=== PATIENT | male | born 1960 | race Caucasian/White ===

== ENCOUNTER 2019-02-18 16:16 | Inpatient (IN) | payer BC, SELFPAY ==
[2019-02-08 10:46] VITALS: BP 147/88; PULSE 56; RESP 18; TEMP 36.9; O2SAT 100; BMI 36.3
--- NOTE | 2019-02-17 14:49 | PM.IMHP ---
H&P: HPI History of Present Illness Chief complaint: diverticulitis with abscess Narrative: Rohit Kate Jr. is a 58 year old male with psoriatic arthritis who presented in November with diverticulitis with a 6 cm pelvic abscess. This was treated with percutaneous drainage and antibiotics. It subsequently resolved. In follow-up patient began having pneumaturia. He is taken to surgery now for complicated diverticulitis with colovesical fistula. His anti TNF alpha inhibitor has been stopped preoperatively. he has been on cephalexin 500 mg daily for urinary bacterial suppression. Review of Systems Review of Systems: All systems reviewed & are unremarkable except as noted in HPI and below Constitutional: Constitutional: Denies headache(s) ENT: Denies headache(s) Cardiovascular: Cardiovascular: Denies chest pain and Denies dyspnea Respiratory: Respiratory: Denies cough and Denies dyspnea Gastrointestinal: Gastrointestinal: Denies bloating, Denies constipation and Denies nausea Genitourinary: Genitourinary: Reports as per HPI ( Pneumaturia) Neurologic: Denies confusion and Denies headache(s) Psychiatric: Psychiatric: Denies confusion [facility] Surgical History Surgical History (Updated 02/18/19 @ 08:13 by Sindhu Celaya CRNA) H/O umbilical hernia repair History of carpal tunnel surgery of right wrist History of inguinal hernia repair History of total replacement of right shoulder joint Family History Family History Mother Family history of diabetes mellitus in first degree relative Family history of coronary artery disease Family history of heart disease in male family member before age 55 Sibling Family history of diabetes mellitus in first degree relative Other Cerebrovascular accident Diabetes mellitus Family history of cardiovascular disease Hypertension Social History Social History Smoking status: Former smoker Tobacco type: e-cigarettes Smoking end date: 02/24/11 Alcohol intake: current Meds Home Medications and Allergies Home Medications Medication Instructions Recorded Confirmed Type cholecalciferol (vitamin D3) 2,000 2,000 unit PO DAILY 01/04/19 02/18/19 History unit tablet folic acid 1 mg tablet 3 mg PO DAILY 01/04/19 02/18/19 History pantoprazole 40 mg tablet,delayed 40 mg PO QAM 01/04/19 02/18/19 History release piroxicam 20 mg capsule 20 mg PO DAILY 01/04/19 02/18/19 History ramipril 10 mg capsule 10 mg PO DAILY 01/04/19 02/18/19 History tramadol 50 mg tablet 50 mg PO Q6H PRN 01/04/19 02/18/19 History cephalexin 500 mg PO DAILY 02/08/19 02/18/19 History Allergies Allergy/AdvReac Type Severity Reaction Status Date / Time No Known Allergies Allergy Unknown Verified 02/18/19 08:37 Exam Const: General: cooperative, comfortable, no acute distress, alert and awake HENMT: Head: normocephalic, atraumatic, no contusions and no scalp lesions Eyes: Conjunctivae: conjunctivae normal Sclera: sclerae normal Pupils: PERRL EOM: EOM intact bilaterally Neck: Neck: normal visual inspection, no lymphadenopathy, trachea midline, supple, nontender and no JVD Thyroid: abnormal thyroid Resp: Effort & Inspection: normal respiratory effort Auscultation: clear to auscultation bilaterally Cardio: Rate: regular rate Rhythm: regular rhythm GI: Inspection: non-distended GI Palp: Yes soft and No tender Skin: Lesions: no lesions Rashes: no rashes Neuro: General: no focal motor deficits and CN's II-XI intact bilaterally Cranial nerves: Yes PERRL Motor exam (neuro): no movement abnormalities noted Extrem: General: no clubbing, cyanosis or edema and edema Psych: Affect: normal affect Thought process: normal thought process Insight: insight good Assessment and Plan Assessment and plan (1) Diverticulitis of large intestine with perforation and abscess withou
[2019-02-18] VITALS (11 sets, daily range): BP systolic 107–163; BP diastolic 58–82; PULSE 52–102; RESP 10–20; TEMP 36.2–37.5; O2SAT 94–100
--- NOTE | 2019-02-18 08:09 | WPDANESEPP ---
Anes - Eval Pre Procedure Procedure: Operation Date: 02/18/19 10:30 Proposed Procedures p Hand Assisted Laparoscopic Sigmoidectomy, Repair Colovesical Fistula - Murali Ortiz MD Date/Time: 02/18/19 08:09 Surgeon: Angel Pre Op Diagnosis: diverticulitis with abscess Patient Data Age: 58 Gender: M Height: 1.78 m Weight: 115.1 kg Last Vital Signs Temp 36.9 C 02/08/19 10:46 Pulse 56 L 02/08/19 10:46 Resp 18 02/08/19 10:46 BP 147/88 H 02/08/19 10:46 Pulse Ox 100 02/08/19 10:46 Allergies Allergy/AdvReac Type Severity Reaction Status Date / Time No Known Allergies Allergy Unknown Verified 02/08/19 10:11 Home Medications Medication Instructions Recorded Confirmed Type cholecalciferol (vitamin D3) 2,000 2,000 unit PO DAILY 01/04/19 02/08/19 History unit tablet folic acid 1 mg tablet 3 mg PO DAILY 01/04/19 02/08/19 History pantoprazole 40 mg tablet,delayed 40 mg PO QAM 01/04/19 02/08/19 History release piroxicam 20 mg capsule 20 mg PO DAILY 01/04/19 02/08/19 History ramipril 10 mg capsule 10 mg PO DAILY 01/04/19 02/08/19 History tramadol 50 mg tablet 50 mg PO Q6H PRN 01/04/19 02/08/19 History cephalexin 500 mg PO DAILY 02/08/19 02/08/19 History Patient hx anesthesia problems: none Family hx anesthesia problems: none PMFSH Surgical History Surgical History (Updated 02/18/19 @ 08:13 by Sindhu Celaya CRNA) H/O umbilical hernia repair History of carpal tunnel surgery of right wrist History of inguinal hernia repair History of total replacement of right shoulder joint Family History Family History Mother Family history of diabetes mellitus in first degree relative Family history of coronary artery disease Family history of heart disease in male family member before age 55 Sibling Family history of diabetes mellitus in first degree relative Other Cerebrovascular accident Diabetes mellitus Family history of cardiovascular disease Hypertension Social History Social History Smoking status: Former smoker Tobacco type: e-cigarettes Smoking end date: 02/24/11 Alcohol intake: current Exam Day of Procedure 02/18/19 08:09 Patient weight: obese
[2019-02-18] MEDS: LACTATED RINGERS 1,000 ML 30 ML IV CONT ×2 (08:30→15:11)
--- NOTE | 2019-02-18 09:17 | WPDANESEFPP ---
Anes - Eval Final PreProcedure Day of Procedure 02/18/19 09:17 Patient weight: obese Heart: regular rate and rhythm Lungs: decreased breath sounds Airway: Mallampati scale class II Neurological: alert and oriented Last oral intake: >/= 8 hours ASA classification: III Emergent: no Anesthetic plan: proceed Anesthesia type and monitoring: general ETT and standard monitoring Other findings: htn vapes diverticulitis GERD Informed Consent: The patient's anesthetic plan and its attendant risks and benefits were discussed with the patient/family/POA. Questions were solicited and answers provided to the satisfaction of the patient/family/POA.
[2019-02-18] MEDS: ALVIMOPAN 12 MG CAPSULE PO ×2 (10:01→21:05)
[2019-02-18] MEDS: IBUPROFEN IV 800 MG/200 ML 800 MG/200 ML BAG 400 MG IVPB ×2 (10:01→18:38)
--- NOTE | 2019-02-18 10:18 | WPDHPUPDATE1 ---
History and Physical Update Update Date/Time: 02/18/19 10:18 History and Physical has been reviewed, including an updated exam of the patient. There are NO changes in the patient's condition. Risks, benefits, and alternatives have been discussed and questions answered. Patient agrees to proceed with procedure.
[2019-02-18] MEDS: ceFAZolin 2 GM/D5W 50 ML 2 GM/50 ML BAG IVPB (10:42)
[2019-02-18] MEDS: metroNIDAZOLE 500 MG/ISO 100ML 500 MG/100 ML BAG 100 MG IVPB (10:46)
[2019-02-18] MEDS: BUPIVACAINE/EPINEPHRINE 0.5% 30 ML VIAL 40 ML INFILTRATE (11:17)
--- NOTE | 2019-02-18 12:27 | SUR.OPER ---
RECTAL PREP PRIOR TO SHEA INSERTION/1000ML NS AT 300ML INCREMENTS SLOWLY PER 36FR MALLECOT TUBE/TOTAL 900ML IRRIGATION USED. FOLLOWED BY 237ML BETADINE SOLUTION VIA BULB SYRINGE VIA MALLECOT. 2000ML U/A BAG ATTACHED. SECURED TO LEFT POSTERIOR THIGH PER LEG STRAP/BAG TO GRAVITY AT FOOT OF BED.
[2019-02-18] MEDS: ceFAZolin SODIUM 1 GM VIAL 2 GM IV PUSH (14:35)
--- NOTE | 2019-02-18 15:01 | SUR.OPER ---
RECTAL TUBE REMOVED WITH EASE.
--- NOTE | 2019-02-18 15:24 | PM.PROC ---
Procedure Note - Detailed Date of procedure: 02/18/19 Pre-op diagnosis: Diverticulitis with colovesical fistula Diverticulitis with colovesical fistula Post-op diagnosis: same Procedure performed: Hand access laparoscopic sigmoidectomy with takedown splenic flexure; hand-sewn colorectal anastomosis; repair of urinary bladder fistula. Description of procedure: The patient was taken to surgery and induced into general anesthesia. He had rectal irrigation and a rectal tube was placed. Ryder catheter was placed. He was placed in Channing stirrups in lithotomy. The abdomen was prepped and draped. The initial incision was drawn on the skin in the lower abdominal midline just above the pubis. Local was infiltrated in this area as well as in the subcutaneous. Incision was made and dissection was carried down through the midline fascia. The peritoneum was opened and extended nearly the length of the wound. There was a dense adhesion in the suprapubic area of a mass of sigmoid colon. I was suspicious this may actually be the colovesical fistula. I was able to slowly dissect and divide this. It needed to be divided to get the Solis wound guard in place. After reviewing the bladder and the sigmoid colon inflammatory mass I was convinced this was the area of the colovesical fistula. I left the bladder opening to be closed later in the case. The Solis and GelPort were then placed. With a hand in the abdomen, I then infiltrated local in the left mid abdomen. A 10 11 port was placed here. The camera was placed and under direct visualization another 10 11 port was placed in the midline above the umbilicus. A 3rd laparoscopic port was placed in the left mid abdomen. This was a 12 mm port. the patient was placed in Trendelenburg with the left side elevated. I used the Harmonic scalpel almost entirely for the dissection. We started with the mid descending colon and freed lateral peritoneal attachments here. I was able to slowly mobilize the descending colon towards the midline. I avoided the splenic flexure at this point. I then proceeded down to the inflammatory mass of sigmoid colon which was plastered to the left upper pelvic sidewall. Some additional lateral peritoneal attachments were taken down leading to this inflammatory mass. I then found the left ureter and dissected out a segment of it. It was encircled with a vessel loop. The vessel loop was left in place during the surgery so that I could easily re-identify the ureter. From there, I gently started taking down the inflammatory adhesions to the sigmoid colon mass and mobilizing it back towards the midline. I also exposed the peritoneum on the right side of the sigmoid colon mass and scored this with the Harmonic scalpel. I scored down to the peritoneal reflection. I also brought this up to the area of the inferior mesenteric artery. I then went back to the left pelvic sidewall and continued dissection of the sigmoid and upper rectum using the Harmonic scalpel. Once the inflammatory mass was fully mobilized, I continued the dissection of the upper rectum so that it was mobilized from the left side. I then looked again on the right side and divided the peritoneum and opened the mesentery between the right and left sides to the distal sigmoid and upper rectum. Harmonic scalpel was used for this dissection as well as hemostasis. I found an area in the upper rectum that was suitable for the distal line of resection. I divided the mesentery up to this area with the Harmonic scalpel. I then went back to the distal descending colon, proximal to the inflammatory mass of sigmoid. I likewise found an area of distal descending colon which would be suitable for the proximal line of resection. I divided the mesentery to this portion of the descending colon as well. I then dissected in the mesentery between the upper rectum and distal descending colon. I dissected down to the inferior mesen
--- NOTE | 2019-02-18 18:21 | ADMGEN ---
This patient, Rohit Kate , was admitted to 3 [facility] Surg Room 309-01. Patient/family oriented to hospital policies and general routines including ID bracelet, bed and alarms, visiting hours, pain management, procedures, bathroom and other care routines, personal items, smoking policy, room service/diet, and visiting hours. Valuables list has been completed. Information on how to activate the Rapid Response Team has been discussed. Patient/Family are encouraged to report perceived risks to care and to ask questions if they do not understand what they are told or what they should do.
[2019-02-18] MEDS: LACTATED RINGERS 1,000 ML 100 ML IV CONT (18:35)
[2019-02-18] MEDS: MORPHINE SULFATE 4 MG/ML INJ IV PUSH (18:36)
[2019-02-19] MEDS: IBUPROFEN IV 800 MG/200 ML 800 MG/200 ML BAG 400 MG IVPB ×3 (00:31→18:30)
[2019-02-19 02:02] VITALS: BP 123/71; PULSE 64; RESP 18; TEMP 36.6; O2SAT 98
[2019-02-19] MEDS: MORPHINE SULFATE 2 MG/ML INJ IV PUSH (04:26)
[2019-02-19 06:00] VITALS: BP 143/82; PULSE 62; RESP 18; TEMP 36.6; O2SAT 98
[2019-02-19 06:12] LABS: Basophils Percent Auto 0.2 % (0.2-1.2); Hematocrit 34.3 % (42.0-52.0); Immature Granulocyte Absolute 0.07 K/mm3 (0.00-0.031); Immature Granulocyte Percent A 0.4 % (0-0.5); Lymphocytes Absolute Auto 2.14 K/mm3 (0.9-3.2); Lymphocytes Percent Auto 12.8 % (18.3-44.2); Mean Corpuscular HGB Conc 32.1 g/dl (32-36); Mean Corpuscular Hemoglobin 28.6 pg (26-34); Mean Corpuscular Volume 89.3 fl (80-100); Mean Platelet Volume 10.6 fl (7.4-10.4); Monocytes Absolute Auto 1.2 K/mm3 (0.1-0.6); Monocytes Percent Auto 7.1 % (2.6-8.5); Neutrophils Absolute Auto 13.3 K/mm3 (1.3-6.7); Neutrophils Percent Auto 79.5 % (45.5-73.1); Platelet Count Result 375 k/mm3 (150-375); Red Blood Count 3.84 M/mm3 (4.6-6.20); Red Cell Distribution Width 14.6 % (11.5-14.5); White Blood Count 16.7 K/mm3 (4.5-10.0)
--- NOTE | 2019-02-19 06:19 | PM.PNGS ---
Progress Note: A&P Assessment and Plan (1) Diverticulitis of large intestine with perforation and abscess without bleeding: Code(s): K57.20 - Diverticulitis of large intestine with perforation and abscess without bleeding Status: Acute Assessment and Plan: Start to advance diet today. Increase activity. Recheck labs again tomorrow morning. (2) Colovesical fistula: Code(s): N32.1 - Vesicointestinal fistula Status: Acute Assessment and Plan: Ryder will need to stay in for 7 days. Patient understands this. Subjective Subjective Date/Time Seen: 02/19/19 06:19 Post Op day: 1 Patient reports: still having pain, tolerating liquids well, no flatus, no bowel movement and afebrile Review of Systems Review of Systems: All systems reviewed & are unremarkable except as noted in HPI and below Constitutional: Constitutional: Denies headache(s) ENT: Denies headache(s) Cardiovascular: Cardiovascular: Denies chest pain and Denies dyspnea Respiratory: Respiratory: Denies cough and Denies dyspnea Gastrointestinal: Gastrointestinal: Reports as per HPI Neurologic: Denies confusion and Denies headache(s) Psychiatric: Psychiatric: Denies confusion Exam Const: General: comfortable and no acute distress; No confused Orientation/consciousness: oriented x3 and No confused Resp: Effort & Inspection: normal respiratory effort Auscultation: clear to auscultation bilaterally Cardio: Rate: regular rate Rhythm: regular rhythm GI: Inspection: incision ( dressing dry and intact. Trocar sites look good.) GI Palp: Yes soft, Yes tender, No guarding and No rebound tenderness Auscultation: hypoactive bowel sounds Neuro: General: oriented x3, no focal motor deficits and No confused Extrem: General: no calf tenderness and no edema Psych: Affect: normal affect Insight: insight good Judgement: judgment good Objective Data Vital Signs Vital Signs: Vital Signs - 24 hr 02/18/19 08:10 02/18/19 15:11 02/18/19 15:25 Temperature 36.2 C L 37.5 C Pulse Rate 77 75 53 L Respiratory Rate 18 18 12 Blood Pressure 163/79 H 121/66 112/58 L Pulse Oximetry 99 100 100 02/18/19 15:40 02/18/19 15:55 02/18/19 16:10 Temperature Pulse Rate 52 L 53 L 55 L Respiratory Rate 15 10 L 12 Blood Pressure 110/71 114/67 110/77 Pulse Oximetry 94 94 95 02/18/19 16:25 02/18/19 17:05 02/18/19 18:35 Temperature 37.1 C Pulse Rate 57 L 93 102 H Respiratory Rate 20 18 18 Blood Pressure 118/66 147/78 H 151/82 H Pulse Oximetry 96 100 100 02/18/19 18:52 02/18/19 22:00 02/19/19 02:02 Temperature 36.2 C L 36.6 C Pulse Rate 87 65 64 Respiratory Rate 18 16 18 Blood Pressure 146/78 H 107/69 123/71 Pulse Oximetry 100 95 98 02/19/19 06:00 Temperature 36.6 C Pulse Rate 62 Respiratory Rate 18 Blood Pressure 143/82 H Pulse Oximetry 98 Intake/Output Intake/Output: Intake & Output 02/16/19 02/17/19 02/18/19 02/19/19 23:59 23:59 23:59 23:59 Intake Total 750 400 Output Total 65 450 Balance 685 -50 Meds/Results Medications: Active Medications Generic Name Dose Route Start Last Admin Trade Name Freq PRN Reason Stop Dose Admin Acetaminophen 500 mg 02/18/19 16:16 Tylenol Tablet PO Q6H PRN Mild Pain (1-3) or Fever Hydrocodone Bitart/Acetaminophen 1 tab 02/18/19 16:16 [place] 5-325 Mg PO Q4H PRN Pain Rated 4-6 Hydrocodone Bitart/Acetaminophen 1 tab 02/18/19 16:16 02/19/19 02:59 [place] 10-325 Mg PO 1 tab Q6H PRN Administration Pain Rated 7-10 Alvimopan 12 mg 02/18/19 21:00 02/18/19 21:05 Entereg PO 02/26/19 21:01 12 mg Q12HR FREDDY Administration Enoxaparin Sodium 40 mg 02/19/19 09:00 Lovenox SUB-Q DAILY FREDDY Lactated Ringer's 1,000 mls @ 100 mls/hr 02/18/19 16:16 02/18/19 18:35 Lr - Lactated Ringers Iv IV CONT 100 mls/hr .Q10H FREDDY Administration Ibuprofen 800 mg in 200 mls @ 400 mls/hr 02/18/19 18:00
[2019-02-19 06:21] LABS: Blood Urea Nitrogen 16 mg/dL (9-20); Calcium 8.5 mg/dL (8.4-10.2); Carbon Dioxide 24 mmol/L (22-30); Chloride 102 mmol/L (98-107); Estimated CRCL calculation 125 ml/min; Estimated Glomerular Filt Rate > 60; Glucose 129 mg/dL (75-110); Potassium 4.1 mmol/L (3.4-5.0); Sodium 134 mmol/L (137-145)
[2019-02-19] MEDS: LACTATED RINGERS 1,000 ML 100 ML IV CONT (06:38)
[2019-02-19 10:00] VITALS: BP 141/78; PULSE 65; RESP 18; TEMP 36.2; O2SAT 100
[2019-02-19] MEDS: RAMIPRIL 5 MG CAPSULE 10 MG PO (10:26)
[2019-02-19] MEDS: PIROXICAM 10 MG CAPSULE 20 MG PO (10:26)
[2019-02-19] MEDS: ALVIMOPAN 12 MG CAPSULE PO ×2 (10:26→21:30)
[2019-02-19] MEDS: ENOXAPARIN 40 MG/0.4 ML SYRINGE SUB-Q (10:26)
[2019-02-19] MEDS: PANTOPRAZOLE 40 MG TABLET PO (10:26)
[2019-02-19] MEDS: MORPHINE SULFATE 4 MG/ML INJ IV PUSH ×3 (10:31→21:27)
[2019-02-19] MEDS: IBUPROFEN IV 800 MG/200 ML 800 MG/200 ML BAG 275 MG IVPB (13:09)
[2019-02-19 14:00] VITALS: BP 140/68; PULSE 67; RESP 18; TEMP 36.6; O2SAT 100
[2019-02-19 22:00] VITALS: BP 123/79; PULSE 81; RESP 18; TEMP 36.7; O2SAT 99
[2019-02-20] MEDS: IBUPROFEN IV 800 MG/200 ML 800 MG/200 ML BAG 400 MG IVPB ×2 (00:35→06:06)
[2019-02-20] MEDS: TRAZODONE HCL 50 MG TABLET PO ×2 (01:33→23:55)
[2019-02-20 06:00] VITALS: BP 117/71; PULSE 77; RESP 18; TEMP 36.7; O2SAT 96
[2019-02-20] MEDS: MORPHINE SULFATE 4 MG/ML INJ IV PUSH ×3 (06:02→19:43)
[2019-02-20 06:42] LABS: Basophils Percent Auto 0.3 % (0.2-1.2); Eosinophils Absolute Auto 0.2 K/mm3 (0-0.3); Eosinophils Percent Auto 2.1 % (0-4.4); Hematocrit 29.5 % (42.0-52.0); Hemoglobin 9.4 g/dL (14.0-18.0); Immature Granulocyte Absolute 0.03 K/mm3 (0.00-0.031); Immature Granulocyte Percent A 0.3 % (0-0.5); Lymphocytes Absolute Auto 2.42 K/mm3 (0.9-3.2); Lymphocytes Percent Auto 21.8 % (18.3-44.2); Mean Corpuscular HGB Conc 31.9 g/dl (32-36); Mean Corpuscular Hemoglobin 28.6 pg (26-34); Mean Corpuscular Volume 89.7 fl (80-100); Mean Platelet Volume 11.1 fl (7.4-10.4); Monocytes Absolute Auto 0.8 K/mm3 (0.1-0.6); Monocytes Percent Auto 7.2 % (2.6-8.5); Neutrophils Absolute Auto 7.6 K/mm3 (1.3-6.7); Neutrophils Percent Auto 68.3 % (45.5-73.1); Platelet Count Result 325 k/mm3 (150-375); Red Blood Count 3.29 M/mm3 (4.6-6.20); Red Cell Distribution Width 14.5 % (11.5-14.5); White Blood Count 11.1 K/mm3 (4.5-10.0)
[2019-02-20 06:52] LABS: Blood Urea Nitrogen 10 mg/dL (9-20); Calcium 8.7 mg/dL (8.4-10.2); Carbon Dioxide 28 mmol/L (22-30); Chloride 98 mmol/L (98-107); Estimated CRCL calculation 143 ml/min; Estimated Glomerular Filt Rate > 60; Glucose 103 mg/dL (75-110); Potassium 3.9 mmol/L (3.4-5.0); Sodium 133 mmol/L (137-145)
[2019-02-20] MEDS: PIROXICAM 10 MG CAPSULE 20 MG PO (09:55)
[2019-02-20] MEDS: PANTOPRAZOLE 40 MG TABLET PO (09:55)
[2019-02-20] MEDS: ENOXAPARIN 40 MG/0.4 ML SYRINGE SUB-Q (09:55)
[2019-02-20] MEDS: RAMIPRIL 5 MG CAPSULE 10 MG PO (09:55)
[2019-02-20] MEDS: ALVIMOPAN 12 MG CAPSULE PO ×2 (09:55→21:47)
[2019-02-20 14:00] VITALS: BP 127/72; PULSE 85; RESP 20; TEMP 36.8; O2SAT 95
--- NOTE | 2019-02-20 15:10 | PM.PNGS ---
Progress Note: A&P Assessment and Plan (1) Diverticulitis of large intestine with perforation and abscess without bleeding: Onset Date: ~01/2019 Code(s): K57.20 - Diverticulitis of large intestine with perforation and abscess without bleeding Status: Acute Assessment and Plan: Improving nicely status post hand assisted sigmoid resection with anastomosis and takedown of colovesical fistula (2) Colovesical fistula: Code(s): N32.1 - Vesicointestinal fistula Status: Acute Assessment and Plan: Patient is still requiring periodic IV breakthrough pain medication. Will switch IV ibuprofen to p.o. and alternate ibuprofen with hydrocodone 10/325. Hopefully ready to go home tomorrow as patient has had bowel movements and qualifies from that point of view. Subjective Subjective Date/Time Seen: 02/20/19 15:10 Post Op day: 2 (Patient is still hurting a lot but has had several loose stools.) Patient reports: still having pain, flatus and bowel movement Interval history: Patient tolerating a full liquid diet and is out walking in the halls. Nurse reports he is still asked for breakthrough pain with his IV morphine even when taking hydrocodone 10/325 every 6. Review of Systems Review of Systems: All systems reviewed & are unremarkable except as noted in HPI and below Exam Const: General: no acute distress HENMT: Mouth: Yes moist mucous membranes Eyes: General: appearance normal, both eyes and all related structures Neck: Neck: supple and no JVD Resp: Auscultation: clear to auscultation bilaterally Cardio: Rate: regular rate Rhythm: regular rhythm GI: Auscultation: normal bowel sounds Other: Incisions: Clean and dry. Removed gauze dressing over vertical suprapubic incision. Mild serosanguineous drainage. Otherwise looks clean without signs of infection. Gauze dressing reapplied by nurse. Urinary Catheter: Urinary Catheter: patent and draining and urine clear Skin: General skin exam: normal color Neuro: Cognition (Neuro): normal cognition Speech: normal speech Objective Data Vital Signs Vital Signs: Vital Signs - 24 hr 02/19/19 22:00 02/20/19 06:00 Temperature 36.7 C 36.7 C Pulse Rate 81 77 Respiratory Rate 18 18 Blood Pressure 123/79 117/71 Pulse Oximetry 99 96 Intake/Output Intake/Output: Intake & Output 02/17/19 02/18/19 02/19/19/28/19 23:59 23:59 23:59 23:59 Intake Total 750 3181 1360 Output Total 65 1100 1450 Balance 685 2081 -90 Meds/Results Medications: Active Medications Generic Name Dose Route Start Last Admin Trade Name Freq PRN Reason Stop Dose Admin Acetaminophen 500 mg 02/18/19 16:16 Tylenol Tablet PO Q6H PRN Mild Pain (1-3) or Fever Hydrocodone Bitart/Acetaminophen 1 tab 02/18/19 16:16 [place] 5-325 Mg PO Q4H PRN Pain Rated 4-6 Hydrocodone Bitart/Acetaminophen 1 tab 02/18/19 16:16 02/20/19 10:01 [place] 10-325 Mg PO 1 tab Q6H PRN Administration Pain Rated 7-10 Alvimopan 12 mg 02/18/19 21:00 02/20/19 09:55 Entereg PO 02/26/19 21:01 12 mg Q12HR FREDDY Administration Enoxaparin Sodium 40 mg 02/19/19 09:00 02/20/19 09:55 Lovenox SUB-Q 40 mg DAILY FREDDY Administration Ibuprofen 600 mg 02/20/19 11:55 Motrin PO Q6H FREDDY Morphine Sulfate 2 mg 02/18/19 16:16 02/19/19 04:26 Morphine Sulfate Inj IV PUSH 2 mg Q2H PRN Administration Pain Rated 4-6 Morphine Sulfate 4 mg 02/18/19 16:16 02/20/19 13:32 Morphine Sulfate Inj IV PUSH 4 mg Q2H PRN Administration Pain Rated 7-10 Naloxone HCl 0.1 mg 02/18/19 16:16 Narcan IV PUSH Q2M PRN Opiate Reversal Ondansetron HCl 4 mg 02/18/19 16:16 Zofran Inj IV PUSH Q4H PRN Nausea And Vomiting Pantoprazole Sodium 40 mg 02/19/19 09:00 02/20/19 09:55 Protonix PO 40 mg QAM FREDDY Administration Piroxicam 20 mg 02/19/19 09:00 02/20/19 09:55 Jeffy Combs
[2019-02-20 22:00] VITALS: BP 129/79; PULSE 93; RESP 16; TEMP 36.8; O2SAT 97
[2019-02-21] MEDS: MORPHINE SULFATE 4 MG/ML INJ IV PUSH (03:28)
[2019-02-21] MEDS: IBUPROFEN 600 MG TABLET PO ×3 (05:03→18:07)
[2019-02-21 06:00] VITALS: BP 138/86; PULSE 81; RESP 16; TEMP 36.9; O2SAT 97
[2019-02-21 08:38] LABS: Basophils Percent Auto 0.3 % (0.2-1.2); Eosinophils Absolute Auto 0.4 K/mm3 (0-0.3); Eosinophils Percent Auto 3.3 % (0-4.4); Hematocrit 29.3 % (42.0-52.0); Hemoglobin 9.4 g/dL (14.0-18.0); Immature Granulocyte Absolute 0.03 K/mm3 (0.00-0.031); Immature Granulocyte Percent A 0.3 % (0-0.5); Lymphocytes Absolute Auto 2.61 K/mm3 (0.9-3.2); Lymphocytes Percent Auto 24.3 % (18.3-44.2); Mean Corpuscular HGB Conc 32.1 g/dl (32-36); Mean Corpuscular Hemoglobin 28.4 pg (26-34); Mean Corpuscular Volume 88.5 fl (80-100); Monocytes Absolute Auto 0.7 K/mm3 (0.1-0.6); Monocytes Percent Auto 6.1 % (2.6-8.5); Neutrophils Absolute Auto 7.1 K/mm3 (1.3-6.7); Neutrophils Percent Auto 65.7 % (45.5-73.1); Platelet Count Result 331 k/mm3 (150-375); Red Blood Count 3.31 M/mm3 (4.6-6.20); Red Cell Distribution Width 14.5 % (11.5-14.5); White Blood Count 10.7 K/mm3 (4.5-10.0)
[2019-02-21 08:51] LABS: Blood Urea Nitrogen 9 mg/dL (9-20); Calcium 8.9 mg/dL (8.4-10.2); Carbon Dioxide 29 mmol/L (22-30); Chloride 97 mmol/L (98-107); Estimated CRCL calculation 143 ml/min; Estimated Glomerular Filt Rate > 60; Glucose 99 mg/dL (75-110); Potassium 4.1 mmol/L (3.4-5.0); Sodium 133 mmol/L (137-145)
[2019-02-21] MEDS: RAMIPRIL 5 MG CAPSULE 10 MG PO (09:05)
[2019-02-21] MEDS: PANTOPRAZOLE 40 MG TABLET PO (09:05)
[2019-02-21] MEDS: ENOXAPARIN 40 MG/0.4 ML SYRINGE SUB-Q (09:05)
[2019-02-21] MEDS: ALVIMOPAN 12 MG CAPSULE PO (09:05)
[2019-02-21 14:00] VITALS: BP 116/69; PULSE 81; RESP 16; TEMP 36.3; O2SAT 99
--- NOTE | 2019-02-21 16:48 | PM.DS ---
DS: Diagnosis Admitting Diagnosis Admitting Diagnosis: Colovesical fistula secondary to diverticulitis Encounter for other preprocedural examination DS: Summary Hospital Course Reason for hospitalization: colovesical fistula secondary to diverticulitis Hospital Course: patient had a fairly uneventful hospital course. He was admitted after his surgery. He was on Entereg and pain medication and began tolerating a diet on postop day 1. He was still having a good amount of pain on postop day 2 but improved over the next 24 hours and with a Ryder catheter in was what ready to be discharged on postop day 3. Patient was tolerating a soft to low-fat general diet. Status at Discharge Cognitive/behavioral status at discharge: Patient seemed understand his home going instructions and was doing well upon discharge. He was taking a combination of hydrocodone 10/325 and ibuprofen on alternating 3-4 hour time period and tolerating pain well with that. His main pain was in the suprapubic incisional area. Functional status at discharge: independent ambulation Overall status at discharge: patient is progressing back to baseline Time Spent with Patient Time attestation: Total time spent providing and/or coordinating discharge services: Greater than 30 minutes. Specific discharge activities: Patient went home with Ryder catheter. Nurse gave Ryder catheter teaching. Patient will contact the office to have a cystogram schedule prior to removal of the Ryder catheter because of his known fistula. Exam Const: General: no acute distress HENMT: Mouth: Yes moist mucous membranes Eyes: General: appearance normal, both eyes and all related structures Neck: Neck: supple and no JVD Resp: Auscultation: clear to auscultation bilaterally Cardio: Rate: regular rate Rhythm: regular rhythm GI: Auscultation: normal bowel sounds Other: Incisions: Clean and dry. Inspected gauze dressing over vertical suprapubic incision. No drainage today. Otherwise looks clean without signs of infection. Good bowel sounds present. The other laparoscopic port site incisions are healing well with glue in place and no significant erythema. : Male General Exam: Yes normal external exam Urinary Catheter: Urinary Catheter: patent and draining and urine clear Skin: General skin exam: normal color Neuro: Cognition (Neuro): normal cognition Speech: normal speech DS: Data Data Completed and Pending Pending studies at discharge: Pending at discharge 02/18/19 13:17 Surgical [PTH] Routine Labs on day of discharge: Labs from last 24 hours 02/21/19 02/21/19 08:27 08:27 WBC 10.7 H RBC 3.31 L Hgb 9.4 L Hct 29.3 L MCV 88.5 MCH 28.4 MCHC 32.1 RDW 14.5 Plt Count 331 MPV 10.0 Immature Gran % (Auto) 0.3 Neut % (Auto) 65.7 Lymph % (Auto) 24.3 [place] % (Auto) 6.1 Eos % (Auto) 3.3 Baso % (Auto) 0.3 Lymph # (Auto) 2.61 [place] # (Auto) 0.7 H Eos # (Auto) 0.4 H Baso # (Auto) 0.0 Abs Immat Gran (auto) 0.03 Absolute Neuts (auto) 7.1 H Absolute Nucleated RBC 0.0 Nucleated RBC % 0.0 Sodium 133 L Potassium 4.1 Chloride 97 L Carbon Dioxide 29 BUN 9 Creatinine 0.60 L Estim Creat Clear Calc 143 Estimated GFR > 60 Glucose 99 Calcium 8.9 Discharge Plan Discharge Attending physician on discharge: Murali Ortiz Discharging Clinician: Donnie Ac Anticipated Discharge Date/Time: 02/21/19 18:29 Patient Disposition: Home, Self-Care Activity: may shower, no straining and follow weight bearing status Diet: low fiber Wound Care Instructions: remove dressing to shower and incision open to air Discharge Instructions: Use like back or Ryder drainage bag as needed for Ryder catheter. Keep tension off the Ryder catheter. Apply dry gauze dressing to only the lower midline incision site with tape after showering daily. Call the office on Friday to set u
== END 2019-02-21 18:40 | disposition home or self-care (01) | DRG 330 ==
LOC: ANH3MEDSUR 02-19 03:25
PROVIDERS: Admitting Provider Surgery; PCP Family Medicine; Visit Provider Surgery
PROC: 0D1E4Z4 Bypass Large Intestine to Cutaneous, Percutaneous Endoscopic Approach (ICD-10-PCS; principal; 2019-02-18 10:30)
DX: K57.20 Diverticulitis of large intestine with perforation and abscess without bleeding (principal); N32.1 Vesicointestinal fistula; Z28.21 Immunization not carried out because of patient refusal; L40.50 Arthropathic psoriasis, unspecified; Z96.611 Presence of right artificial shoulder joint; Z87.891 Personal history of nicotine dependence; E66.9 Obesity, unspecified; Z68.35 Body mass index [BMI] 35.0-35.9, adult
CPT/HCPCS: 36415; 80048; 85025; 88307; A9270; C1713; C1729; J0131; J0690; J1100; J1170; J1650; J1741; J2250; J2270; J2405; J2704; J2710; J3010; J7030; J7120

== ENCOUNTER → 2020-11-13 02:52 | Outpatient (CLI) | payer OTHER, SELFPAY ==
[2020-11-13 19:01] LABS: SARS-CoV-2 RNA PCR Negative
== END ==
PROVIDERS: PCP Family Medicine; Visit Provider Internal Medicine Gastroenterology
DX: Z01.812 Encounter for preprocedural laboratory examination (principal); Z20.822 Contact with and (suspected) exposure to COVID-19
CPT/HCPCS: C9803; U0003; U0005

== ENCOUNTER 2020-11-16 01:11 | Day surgery (SDC) | payer OTHER, SELFPAY ==
[2020-11-09 10:31] VITALS: BMI 33.5
[2020-11-16 10:12] VITALS: BP 127/95; PULSE 69; RESP 16; TEMP 36.2; O2SAT 100; BMI 36.8
[2020-11-16] MEDS: LACTATED RINGERS 1,000 ML 150 ML IV CONT (10:33)
--- NOTE | 2020-11-16 11:05 | PM.HPGS ---
History of Present Illness History of Present Illness Consent: Risks, benefits, and alternatives have been discussed and questions answered. Patient agrees to proceed with procedure. Chief complaint: neoplasm screening, GERD Narrative: Rohit Kate Jr. is a 60 year old male With chronic gastroesophageal reflux disease here for investigation of possible Dorantes's esophagus, and also for colon cancer screening. His last colonoscopy was 5 years ago, Revealing diverticulosis Review of Systems Review of Systems: All systems reviewed & are unremarkable except as noted in HPI and below PMFSH Past Medical History Medical History (Updated 11/16/20 @ 11:09 by Horace Fernandes MD) GERD (gastroesophageal reflux disease) Hypertension Surgical History Surgical History H/O umbilical hernia repair History of carpal tunnel surgery of right wrist History of inguinal hernia repair History of total replacement of right shoulder joint Status post laparoscopic-assisted sigmoidectomy with take down splenic flexure; hand sewn colorectal anastomosis repair of urinary bladder fistula 02/18/19 Family History Family History Mother Family history of diabetes mellitus in first degree relative Family history of coronary artery disease Family history of heart disease in male family member before age 55 Sibling Family history of diabetes mellitus in first degree relative Other Cerebrovascular accident Diabetes mellitus Family history of cardiovascular disease Hypertension Social History Social History Smoking packs per day: 1 Smoking cigarettes per day: 20.0 Years smoked: 45 Smoking pack-years: 45.00 Smoking status: Current every day smoker Tobacco type: e-cigarettes/vaping Smoking end date: 02/24/11 Additional smoking assessment comments: previously used vap/e-cigarettes Alcohol intake: current Substance use: never Substance use type: does not use Living arrangements: with family Additional living arrangements comments: daughters live with him Gender identity (if verbalized by the patient): Male Spiritual care concerns: No Agree to blood products: Yes Meds Home Medications and Allergies Home Medications Medication Instructions Recorded Confirmed Type folic acid 1 mg tablet 3 mg PO DAILY 01/04/19 11/16/20 History piroxicam 20 mg capsule 20 mg PO DAILY 01/04/19 11/16/20 History tramadol 50 mg tablet 50 mg PO Q6H PRN 01/04/19 11/16/20 History etanercept 50 mg/mL (1 mL) 50 mg SUBCUT WEEKLY 12/27/19 11/16/20 History subcutaneous syringe pantoprazole 40 mg tablet,delayed 40 mg PO QAM #90 tablet 05/30/20 11/16/20 Rx release ramipril 10 mg capsule 10 mg PO DAILY #90 cap 09/11/20 11/16/20 Rx Allergies Allergy/AdvReac Type Severity Reaction Status Date / Time No Known Allergies Allergy Unknown Verified 11/16/20 10:21 Vital Signs Vital Signs - 24 hr 11/16/20 10:12 Temperature 36.2 C L Pulse Rate 69 Respiratory Rate 16 Blood Pressure 127/95 H Pulse Oximetry 100 Exam Resp: Auscultation: clear to auscultation bilaterally Cardio: Rate: regular rate Rhythm: regular rhythm GI: GI Palp: Yes Soft to palpation and No Tenderness to palpation present (GI) Assessment and Plan Assessment and plan (1) GERD (gastroesophageal reflux disease): Code(s): K21.9 - Gastro-esophageal reflux disease without esophagitis Status: Acute Assessment and Plan: EGD with possible biopsy or dilatation or cautery. (2) Colon cancer screening: Code(s): Z12.11 - Encounter for screening for malignant neoplasm of colon Status: Acute Assessment and Plan: Colonoscopy with possible biopsy or polypectomy or cautery or injection of substances.
--- NOTE | 2020-11-16 11:10 | WPDANESEPPF ---
Anes - Initial Pre Proc Eval Procedure: Operation Date: 11/16/20 11:00 Proposed Procedures p Esophagogastroduodenoscopy & Screening Colonoscopy - Codey Razo MD Date/Time: 11/16/20 11:10 Surgeon: Codey Razo MD Pre Op Diagnosis: neoplasm screening, GERD Patient Data Age: 60 Gender: M Height: 1.8 m Weight: 119.7 kg Last Vital Signs Temp 97.2 F L 11/16/20 10:12 Pulse 69 11/16/20 10:12 Resp 16 11/16/20 10:12 BP 127/95 H 11/16/20 10:12 Pulse Ox 100 11/16/20 10:12 Allergies Allergy/AdvReac Type Severity Reaction Status Date / Time No Known Allergies Allergy Unknown Verified 11/16/20 10:21 Home Medications Medication Instructions Recorded Confirmed Type folic acid 1 mg tablet 3 mg PO DAILY 01/04/19 11/16/20 History piroxicam 20 mg capsule 20 mg PO DAILY 01/04/19 11/16/20 History tramadol 50 mg tablet 50 mg PO Q6H PRN 01/04/19 11/16/20 History etanercept 50 mg/mL (1 mL) 50 mg SUBCUT WEEKLY 12/27/19 11/16/20 History subcutaneous syringe pantoprazole 40 mg tablet,delayed 40 mg PO QAM #90 tablet 05/30/20 11/16/20 Rx release ramipril 10 mg capsule 10 mg PO DAILY #90 cap 09/11/20 11/16/20 Rx Patient hx anesthesia problems: none Family hx anesthesia problems: none Results Review: All pre-operative results and documents have been reviewed as part of the pre-operative evaluation. [facility] Past Medical History Medical History (Updated 11/16/20 @ 11:09 by Horace Fernandes MD) GERD (gastroesophageal reflux disease) Hypertension Surgical History Surgical History H/O umbilical hernia repair History of carpal tunnel surgery of right wrist History of inguinal hernia repair History of total replacement of right shoulder joint Status post laparoscopic-assisted sigmoidectomy with take down splenic flexure; hand sewn colorectal anastomosis repair of urinary bladder fistula 02/18/19 Family History Family History Mother Family history of diabetes mellitus in first degree relative Family history of coronary artery disease Family history of heart disease in male family member before age 55 Sibling Family history of diabetes mellitus in first degree relative Other Cerebrovascular accident Diabetes mellitus Family history of cardiovascular disease Hypertension Social History Social History Smoking packs per day: 1 Smoking cigarettes per day: 20.0 Years smoked: 45 Smoking pack-years: 45.00 Smoking status: Current every day smoker Tobacco type: e-cigarettes/vaping Smoking end date: 02/24/11 Additional smoking assessment comments: previously used vap/e-cigarettes Alcohol intake: current Substance use: never Substance use type: does not use Living arrangements: with family Additional living arrangements comments: daughters live with him Gender identity (if verbalized by the patient): Male Spiritual care concerns: No Agree to blood products: Yes Anes - Eval Final PreProcedure Day of Procedure 11/16/20 11:10 Patient weight: obese Heart: regular rate and rhythm Lungs: clear to auscultation Airway: Mallampati scale class II Neurological: alert and oriented Last oral intake: >/= 8 hours ASA classification: III Emergent: no Anesthetic plan: proceed Anesthesia type and monitoring: general GIVS and standard monitoring Results Review: All pre-operative results and documents have been reviewed as part of the pre-operative evaluation. Informed Consent: The patient's anesthetic plan and its attendant risks and benefits were discussed with the patient/family/POA. Questions were solicited and answers provided to the satisfaction of the patient/family/POA.
[2020-11-16] MEDS: BENZOCAINE (*SP) 60 ML SPRAY CAN (HURRICAINE) 1 SPRAY MUCOUS MEM (11:44)
--- NOTE | 2020-11-16 11:51 | SUR.OPER ---
EGD ended at 1147. Colonoscopy began at 1153.
[2020-11-16 12:07] VITALS: BP 115/79; PULSE 55; RESP 16; O2SAT 100
[2020-11-16 12:17] VITALS: BP 137/93; PULSE 57; RESP 16; O2SAT 100
[2020-11-16 12:26] VITALS: BP 129/90; PULSE 58; RESP 16; O2SAT 100
== END 2020-11-16 12:38 | disposition home or self-care (01) ==
PROVIDERS: PCP Family Medicine; Visit Provider Internal Medicine Gastroenterology
PROC: 0DJ08ZZ Inspection of Upper Intestinal Tract, Via Natural or Artificial Opening Endoscopic (ICD-10-PCS; CPT 43235; principal; 2020-11-16 11:00)
DX: Z12.11 Encounter for screening for malignant neoplasm of colon (principal); K21.9 Gastro-esophageal reflux disease without esophagitis; K57.30 Diverticulosis of large intestine without perforation or abscess without bleeding; K64.8 Other hemorrhoids; F17.290 Nicotine dependence, other tobacco product, uncomplicated; Z96.611 Presence of right artificial shoulder joint; Z90.49 Acquired absence of other specified parts of digestive tract
CPT/HCPCS: 45378; 43235; C9803; J2001; J2704; J7120; U0003; U0005

== ENCOUNTER → 2020-11-27 14:10 | Outpatient (CLI) | payer OTHER, SELFPAY ==
--- NOTE | ~2020-11-27 | CT_ITS ---
EXAMINATION: CT abdomen pelvis wo con DATE: 11/27/2020 14:35 INDICATION: Incisional hernia without obstruction or gangrene. TECHNIQUE: Computed tomography (CT) of the abdomen and pelvis was performed without intravenous contr ast. Automated exposure control and iterative reconstruction technique were employed. The dose-length product was 1097.73 mGy-cm. COMPARISON: CT abdomen and pelvis 12/02/2018 FINDINGS: The visualized portions of the lung bases are clear without pneumonia or pleural effusion. The heart size is normal. No pericardial effusion. There is diffuse hepatic steatosis. The gallbladde r is distended. There are gallstones in the gallbladder. Calcifications in the spleen are consistent with old granulomatous disease. The pancreas and adrenal glands are normal. There is a 15 mm cyst in right kidney. There is a 1 mm stone in left kidney. There is an infraumbilical ventral hernia contain ing nonobstructed small bowel. There is a left inguinal hernia containing fat. The prostate is mildly enlarged. There are no dilated loops of bowel. The appendix is not visualized. There are no patholog ically enlarged lymph nodes. There is no free intraperitoneal fluid. There is severe lower lumbar spo ndylosis. There is mild chronic anterior wedging of multiple lower thoracic vertebral bodies. IMPRESSION: 1. Infraumbilical ventral hernia containing nonobstructed small bowel. 2. Left inguinal hernia containing fat. 3. Cholelithiasis. Gallbladder distention may be secondary to fasting. Reviewed, dictated and finalized at location A.
== END ==
PROVIDERS: PCP Family Medicine; Visit Provider Surgery
DX: K43.2 Incisional hernia without obstruction or gangrene (principal); K43.9 Ventral hernia without obstruction or gangrene; K40.90 Unilateral inguinal hernia, without obstruction or gangrene, not specified as recurrent; K80.50 Calculus of bile duct without cholangitis or cholecystitis without obstruction
CPT/HCPCS: 74176

== ENCOUNTER → 2020-12-14 09:32 | Outpatient (CLI) | payer OTHER, SELFPAY ==
--- NOTE | ~2020-12-14 | CT_ITS ---
EXAMINATION: CT lung screening DATE: 12/14/2020 10:03 INDICATION: Lung cancer screening TECHNIQUE: Computed tomography (CT) of the chest was performed without intravenous contrast. The dose -length product was 270.21 mGy-cm. Automated exposure control and iterative reconstruction technique were employed. COMPARISON: None FINDINGS: No significant pleural or pericardial effusion. Heart size is normal. There is atherosclero sis. There are calcified granulomas of the spleen. The visualized aspects of the upper abdomen are un remarkable. No thoracic lymphadenopathy. There is a right shoulder arthroplasty. No pneumothorax. No endobronchial lesions. No focal airspace consolidation no focal pneumonia. There are small 1-2 mm upp er lobe nodules. Mild thoracic spondylosis. IMPRESSION: 1. Lung-RADS category 2: Benign appearance or behavior. Continue annual screening with noncontrast lo w-dose chest CT in 12 months. Reviewed, dictated and finalized at location B. IMPRESSION: 1. Lung-RADS category 2: Benign appearance or behavior. Continue annual screeni ng with noncontrast low-dose chest CT in 12 months.
== END ==
PROVIDERS: PCP Family Medicine; Visit Provider Physician Assistant
DX: Z12.2 Encounter for screening for malignant neoplasm of respiratory organs (principal); Z87.891 Personal history of nicotine dependence
CPT/HCPCS: 71271

== ENCOUNTER → 2021-01-29 03:44 | Outpatient (CLI) | payer OTHER, SELFPAY ==
[2021-01-29 19:12] LABS: SARS-CoV-2 RNA PCR Negative
== END ==
PROVIDERS: PCP Family Medicine; Visit Provider Surgery
DX: Z01.812 Encounter for preprocedural laboratory examination (principal); Z20.822 Contact with and (suspected) exposure to COVID-19
CPT/HCPCS: C9803; U0003; U0005

== ENCOUNTER 2021-01-30 07:55 | Outpatient (CLI) | payer OTHER, SELFPAY ==
--- NOTE | ~2021-01-30 | XR_ITS ---
EXAMINATION: XR chest 2V DATE: 01/30/2021 08:18 INDICATION: Incisional hernia without obstruction or gangrene TECHNIQUE: PA and lateral views of the chest were obtained. COMPARISON: Chest radiograph dated 07/26/[address] dated 12/14/2020 FINDINGS: The lungs remain clear with no focal airspace opacities, pulmonary edema, pleural effusion or pneumot horax. The cardiomediastinal silhouette is normal. Right total shoulder arthroplasty. IMPRESSION: 1. No acute cardiopulmonary disease. Reviewed, dictated and finalized at location B. [employer] WORK[employer]
--- NOTE | 2021-01-30 08:00 | ECG_ITS ---
Measurements Intervals [place] Rate: 57 P: 5 SD: 187 QRS: 38 QRSD: 100 T: 15 QT: 394 QTc: 385 Interpretive Statements SINUS BRADYCARDIA BASELINE ARTIFACT- I, II, III, AVR, AVL, AVF BORDERLINE ECG Electronically Signed On 01-30-2021 8:51:14 ASSISTIVE TECHNOLOGY TRAINER by Aron Gonzalez D.O.
[2021-01-30 09:23] LABS: Basophils Percent Auto 0.5 % (0.2-1.2); Eosinophils Absolute Auto 0.3 K/mm3 (0-0.3); Eosinophils Percent Auto 4.4 % (0-4.4); Hematocrit 44.9 % (42.0-52.0); Hemoglobin 14.8 g/dL (14.0-18.0); Immature Granulocyte Absolute 0.02 K/mm3 (0.00-0.031); Immature Granulocyte Percent A 0.3 % (0-0.5); Lymphocytes Absolute Auto 2.72 K/mm3 (0.9-3.2); Lymphocytes Percent Auto 36.1 % (18.3-44.2); Mean Corpuscular Volume 93.9 fl (80-100); Mean Platelet Volume 10.7 fl (7.4-10.4); Monocytes Absolute Auto 0.5 K/mm3 (0.1-0.6); Monocytes Percent Auto 6.6 % (2.6-8.5); Neutrophils Absolute Auto 3.9 K/mm3 (1.3-6.7); Neutrophils Percent Auto 52.1 % (45.5-73.1); Platelet Count Result 323 k/mm3 (150-375); Red Blood Count 4.78 M/mm3 (4.6-6.20); Red Cell Distribution Width 13.6 % (11.5-14.5); White Blood Count 7.5 K/mm3 (4.5-10.0)
[2021-01-30 09:34] LABS: Anion Gap 9 mmol/L (8-16); Blood Urea Nitrogen 21 mg/dL (9-20); Calcium 9.3 mg/dL (8.4-10.2); Carbon Dioxide 26 mmol/L (22-30); Chloride 102 mmol/L (98-107); Estimated Glomerular Filt Rate > 60; Glucose 95 mg/dL (65-110); Potassium 4.5 mmol/L (3.4-5.0); Sodium 137 mmol/L (137-145)
== END 2021-01-30 07:56 | disposition home or self-care (01) ==
PROVIDERS: PCP Family Medicine; Visit Provider Surgery
DX: Z01.818 Encounter for other preprocedural examination (principal); K43.2 Incisional hernia without obstruction or gangrene; R00.1 Bradycardia, unspecified
CPT/HCPCS: 36415; 71046; 80048; 85025; 86850; 86900; 86901; 93005

== ENCOUNTER 2021-02-02 15:59 | Inpatient (IN) | payer OTHER, SELFPAY ==
[2021-01-23 11:32] VITALS: BMI 37.6
--- NOTE | 2021-01-23 11:43 | PC.NURSE ---
Report to the Outpatient Waiting Room, entrance under the green pavilion located off [facility], at time 8:30 on date 02/01/21. OR Time: 10:30. - You and your visitor will be asked a series of questions to screen for COVID 19 for your protection. - A mask is required within the hospital. - Only one visitor is allowed at this time. Patient visitors will be guided where to wait when not with patient. Preoperative COVID Testing Requirements: No COVID Test needed if: (proof is required; if not received patient will have Rapid Test prior to entry) - Patient has received COVID Vaccine at least 14 days prior to procedure date or - Patient has positive COVID test result within last 90 days of surgery date. COVID Test needed if above criteria is not met If not COVID vaccinated a COVID test must be conducted within 72 hours of surgery and patient is asked to isolate self from time of testing until procedure. You will go to the [facility] for your COVID testing. The [facility] is located at the corner of [address] [facility]. COVID TEST 01/29 AT 9:00 You will only be called if COVID results are positive and your surgeon may reschedule your elective surgery date. Patients may have clear liquids (water, carbonated beverages, clear teas, apple juice) until 3 hours prior to surgery with a maximum of 20 ounces. - No food from midnight until time of surgery - Infants may have breast milk until 4 hours before surgery, formula 6 hours prior to surgery. - Children will be allowed to drink immediately following surgery. If applicable, please bring a bottle or sippy cup to assist with drinking. Juice, water, soda, and popsicles are readily available. For infants on formula, please bring formula the day of surgery. Pacifiers are allowed. Take the following medications with a SIP of water the morning of surgery: TRAMADOL (IF NEEDED) Medications to discontinue per physician: VITAMINS/SUPPLEMENTS (FOLIC ACID) Date to take last dose: 01/28/21 ENBREL - 2 WEEKS PRIOR TO SURGERY PER DR. PATINO PIROXICAM - PER DR. PATINO Please no make-up, nail nepali, hairspray, perfume, deodorant, or body powder the day of surgery. No jewelry (including any body piercings) or valuables the day of surgery, leave them at home. Please take a shower or bath the night before, or the morning of, surgery with an antibacterial soap. Wear comfortable, loose fitting clothing. Children are encouraged to wear pajamas. HIBICLENS SHOWER - Jewelry must be removed prior to entering the operating room. Rings and piercings that are not removed may be cut off. - The hospital will not accept responsibility for valuables. - Please leave all valuables, including medications, at home the day of surgery. If you are going home after surgery, a licensed milk truck driver must drive you home. - NO public transportation without another adult. - We recommend that an adult stay with you for 24 hours following discharge. - We also recommend that you do not drive, make important decision, drink alcoholic beverages, or take any drugs that were not prescribed by your health care provider for at least 24 hours after your discharge time. For Pediatric surgeries, we recommend two adults accompany the child home (only one inside the building at this time). Follow any additional instructions given to you from your surgeon. Telephone instructions given to ANUP WEST and asked if any additional questions and then verbalized understanding. Patient advised to call surgeon office or pre surgery nurse liaison [phone] if any additional questions.
--- NOTE | 2021-01-31 17:39 | PM.IMHP ---
H&P: HPI History of Present Illness Date/Time: 01/31/21 17:39 Chief Complaint: Ventral hernia Narrative: the patient is a 60-year-old man whom I know from laparoscopic sigmoidectomy 2 years ago. This was for diverticulitis with a colovesical fistula. He came back to the office in October of this year with a bulge in the lower abdomen. This started last June. He was diagnosed with an incisional hernia. The hernia is occasionally painful and is getting larger. He had a CT scan which showed an incisional hernia in the lower abdomen. He is a heavyset man with psoriatic arthritis and is a smoker. He is taken to surgery now for incisional hernia repair with mesh, posterior component separation. Review of Systems Review of Systems: All systems reviewed & are unremarkable except as noted in HPI and below Constitutional: Constitutional: Denies headache(s) Cardiovascular: Cardiovascular: Denies chest pain and Denies dyspnea Respiratory: Respiratory: Denies cough and Denies dyspnea Gastrointestinal: Gastrointestinal: Denies bloating, Denies constipation and Denies nausea Neurologic: Denies confusion and Denies headache(s) Psychiatric: Psychiatric: Denies confusion [facility] Past Medical History Medical History GERD (gastroesophageal reflux disease) Hypertension Surgical History Surgical History H/O umbilical hernia repair History of carpal tunnel surgery of right wrist History of inguinal hernia repair History of total replacement of right shoulder joint Status post laparoscopic-assisted sigmoidectomy with take down splenic flexure; hand sewn colorectal anastomosis repair of urinary bladder fistula 02/18/19 Family History Family History Mother Family history of diabetes mellitus in first degree relative Family history of coronary artery disease Family history of heart disease in male family member before age 55 Sibling Family history of diabetes mellitus in first degree relative Other Cerebrovascular accident Diabetes mellitus Family history of cardiovascular disease Hypertension Social History Social History Social History: Single Smoking packs per day: 1 Smoking cigarettes per day: 20.0 Years smoked: 40 Smoking pack-years: 40.00 Smoking status: Former smoker Tobacco type: cigarettes and e-cigarettes/vaping Smoking end date: 02/24/11 Additional smoking assessment comments: QUIT CIGARETTES ~02/24/10 Alcohol intake: current Alcohol use details: 1-2 EVERY 3-4 MONTHS Substance use: current Substance use type: marijuana Other substance usage details: GUMMIES TO SLEEP Last use: 01/20/21 Additional living arrangements comments: daughters live with him Gender identity (if verbalized by the patient): Male Sexual Orientation (if Verbalized by the Patient): Straight or Heterosexual Spiritual care concerns: No Agree to blood products: Yes Meds Home Medications and Allergies Home Medications Medication Instructions Recorded Confirmed Type folic acid 1 mg tablet 3 mg PO DAILY 01/04/19 01/23/21 History piroxicam 20 mg capsule 20 mg PO DAILY 01/04/19 01/23/21 History tramadol 50 mg tablet 50 mg PO Q6H PRN 01/04/19 01/23/21 History etanercept 50 mg/mL (1 mL) 50 mg SUBCUT WEEKLY 12/27/19 01/23/21 History subcutaneous syringe ramipril 10 mg capsule 10 mg PO DAILY #90 cap 09/11/20 01/23/21 Rx pantoprazole 40 mg tablet,delayed 40 mg PO QAM #90 tablet 12/12/20 01/23/21 Rx release methotrexate 25 mg PO WEEKLY 01/23/21 01/23/21 History Allergies Allergy/AdvReac Type Severity Reaction Status Date / Time No Known Allergies Allergy Unknown Verified 01/23/21 11:30 Exam Const: General: cooperative, comfortable, no acute distress,
[2021-02-01] VITALS (21 sets, daily range): BP systolic 114–168; BP diastolic 64–107; PULSE 61–111; RESP 12–20; TEMP 35.9–36.4; O2SAT 92–100
--- NOTE | 2021-02-01 08:38 | WPDANESEPPF ---
Anes - Initial Pre Proc Eval Procedure: Operation Date: 02/01/21 10:30 Proposed Procedures p Repair Incisional Hernia with Mesh, Posterior Component Separation - Murali Ortiz MD <Godwin Goodwin, DO - Last Filed: 02/03/21 17:59> Date/Time: 02/01/21 08:38 <Godwin Goodwin DO - Last Filed: 02/03/21 17:59> Surgeon: Murali Ortiz MD <Godwin Goodwin, DO - Last Filed: 02/03/21 17:59> Pre Op Diagnosis: incisional hernia <Godwin Goodwin DO - Last Filed: 02/03/21 17:59> Patient Data Age: 60 Gender: M Height: 1.8 m Weight: 122.47 kg <Godwin Goodwin DO - Last Filed: 02/03/21 17:59> Allergies Allergy/AdvReac Type Severity Reaction Status Date / Time No Known Allergies Allergy Unknown Verified 02/01/21 09:54 <Godwin Goodwin DO - Last Filed: 02/03/21 17:59> Home Medications Medication Instructions Recorded Confirmed Type folic acid 1 mg tablet 3 mg PO DAILY 01/04/19 02/01/21 History piroxicam 20 mg capsule 20 mg PO DAILY 01/04/19 02/01/21 History tramadol 50 mg tablet 50 mg PO Q6H PRN 01/04/19 02/01/21 History etanercept 50 mg/mL (1 mL) 50 mg SUBCUT WEEKLY 12/27/19 02/01/21 History subcutaneous syringe ramipril 10 mg capsule 10 mg PO DAILY #90 cap 09/11/20 02/01/21 Rx pantoprazole 40 mg tablet,delayed 40 mg PO QAM #90 tablet 12/12/20 02/01/21 Rx release methotrexate 25 mg PO WEEKLY 01/23/21 02/01/21 History <Godwin Goodwin DO - Last Filed: 02/03/21 17:59> Patient hx anesthesia problems: none <Mikhail Sumner MD - Last Filed: 02/01/21 10:11> Family hx anesthesia problems: none <Mikhail Sumner MD - Last Filed: 02/01/21 10:11> Results Review: All pre-operative results and documents have been reviewed as part of the pre-operative evaluation. <Godwin Goodwin DO - Last Filed: 02/03/21 17:59> [facility] Past Medical History Medical History: Medical History (Updated 02/03/21 @ 16:12 by Diego Harris MD) GERD (gastroesophageal reflux disease) Hypertension Obesity (BMI 30-39.9) Psoriatic arthritis <Godwin Goodwin DO - Last Filed: 02/03/21 17:59> Surgical History Surgical History: Surgical History H/O umbilical hernia repair History of carpal tunnel surgery of right wrist History of inguinal hernia repair History of total replacement of right shoulder joint Status post laparoscopic-assisted sigmoidectomy with take down splenic flexure; hand sewn colorectal anastomosis repair of urinary bladder fistula 02/18/19 <Godwin Goodwin DO - Last Filed: 02/03/21 17:59> Family History Family History: Family History Mother Family history of diabetes mellitus in first degree relative Family history of coronary artery disease Family history of heart disease in male family member before age 55 Sibling Family history of diabetes mellitus in first degree relative Other Cerebrovascular accident Diabetes mellitus Family history of cardiovascular disease Hypertension <Godwin Goodwin DO - Last Filed: 02/03/21 17:59> Social History Social History: Social History Social History: Single Smoking packs per day: 1 Smoking cigarettes per day: 20.0 Years smoked: 40 Smoking pack-years: 40.00 Smoking status: Current every day smoker Tobacco type: e-cigarettes/vaping Second hand tobacco smoke exposure: No Smoking end date: 02/24/11 Additional smoking assessment comments: QUIT CIGARETTES ~02/24/10 Alcohol intake: former Alcohol use details: 1-2 EVERY 3-4 MONTHS Substance use: current Substance use type: marijuana Other substance usage details: GUMMIES TO SLEEP Last use: 01/20/21 Living arrangements: with family Additional living arrang
[2021-02-01] MEDS: LACTATED RINGERS 1,000 ML 30 ML IV CONT ×2 (09:34→14:36)
[2021-02-01] MEDS: KETOROLAC 15 MG/ML VIAL (*BKC) IV PUSH (09:37)
[2021-02-01] MEDS: ACETAMINOPHEN 500 MG TABLET 1000 MG PO (09:37)
--- NOTE | 2021-02-01 10:05 | WPDHPUPDATE1 ---
History and Physical Update Update Date/Time: 02/01/21 10:05 History and Physical has been reviewed, including an updated exam of the patient. There are NO changes in the patient's condition. Risks, benefits, and alternatives have been discussed and questions answered. Patient agrees to proceed with procedure.
[2021-02-01] MEDS: ceFAZolin 3 GM/D5W 100 ML 100 ML IVPB (10:25)
[2021-02-01] MEDS: ceFAZolin SODIUM 1 GM VIAL 3 GM IV PUSH (14:18)
[2021-02-01] MEDS: fentaNYL CITRATE INJ (*CRX) 100 MCG/2 ML VIAL 25 MCG IV PUSH ×5 (15:03→17:02)
--- NOTE | 2021-02-01 15:15 | SUR.PHASEI ---
Simple mask removed at 1515.
--- NOTE | 2021-02-01 15:31 | SUR.PHASEI ---
RN went to give the Labetalol to treat elevated BP but then noticed possible A-fib on the monitor. RN notified anesthesia and we repositioned leads and there is just frequent PVCS. We went ahead and held the Labetalol.
--- NOTE | 2021-02-01 15:38 | W.PM.PROC2 ---
Procedure Note - Detailed Date of Procedure 02/01/21 Pre-op Diagnosis incisional hernia Post-op Diagnosis same Procedure Performed Incisional hernia repair with soft polypropylene mesh, bilateral transversus abdominis myofascial flap advancement, 6 cm on the left, 8 cm on the right Surgeon Murali Ortiz MD Marketing Database Analyst Giovanna MARINELLI Anesthesia general Indications Patient underwent hand access laparoscopic sigmoidectomy for diverticulitis with colovesical fistula 2 years ago. Last June he noticed a bulge in the lower abdomen. Evaluation in my office as well as with CT scan is showed a large lower abdominal incisional hernia. He is taken to surgery now for repair. Findings Wide mouth lower abdominal incisional hernia with some loss of abdominal domain. Description of Procedure The patient was taken to surgery and induced into general anesthesia. Ryder catheter was placed. The abdomen was prepped and draped. The previous midline lower abdominal scar was excised and discarded. We then dissected through the subcutaneous and came down to the hernia sac. The hernia sac was quite large. We dissected out from the surrounding subcutaneous creating some subcutaneous pockets by doing so. Eventually we opened the hernia sac and then excised it trying to remove it very close to the fascial edge. This was sent to pathology. There was some loss of abdominal domain and despite the patient being paralyzed and under general anesthesia, the small bowel did 10 to protrude out of the abdomen. We placed some laparotomy sponges initially. Some dissection of the posterior peritoneum was carried out. The patient had a very long abdomen from xiphoid to pubis. He had had a previous umbilical hernia repair with mesh. We extended our incision cephalad and went above the umbilicus. We dissected through the midline and excised some of the mesh associated with the umbilical hernia repair. There were some Ethibond sutures there that we removed as well. We still needed to extend the incision a bit more cephalad to be able to provide a full abdominal coverage. Cautery was used for hemostasis. From there we started on the patient's right side. A plane was created freeing the peritoneum and the posterior rectus from the undersurface of the rectus abdominis muscle. We dissected through this relatively avascular plane to the lateral border of the rectus. This dissection was continued cephalad up to the area of the xiphoid. The dissection was carried below the semi circular line down to the pubis and the retropubic space. From there, we went to the uppermost aspect of the retro rectus dissection. The transversus abdominis muscle was divided over a clamp. This was done with the cautery. We dissected down through the transversus to the transversalis and peritoneum. This dissection was then carried from cephalad to caudad staying just medial to the neurovascular bundles to the rectus abdominis muscle. As we continued our dissection, the dissection was carried lateral to the axillary line staying above the transversalis and peritoneum. The dissection was continued down to the semi circular line. Continuing on caudally we extended our retroperitoneal dissection laterally in similar fashion. There were a couple of small holes made in the transversalis and peritoneum. These were closed with interrupted 3-0 Vicryl suture. At this point, the transversus abdominis release had been completed on the patient's right side. We then changed sides and dissection was performed on the patient's left side. Similarly the posterior rectus sheath was dissected off the rectus muscle. This dissection was extended cephalad to the xiphoid and down into the retropubic space. The transversus abdominis muscle was exposed just under the costal margin on the patient's left. The muscle was again divided with the cautery over a clamp. We continued the dissection from cephalad to caudad in this fashion stay
--- NOTE | 2021-02-01 16:08 | ECG_ITS ---
Measurements Intervals [place] Rate: 108 P: 34 SD: 141 QRS: 60 QRSD: 102 T: 18 QT: 368 QTc: 494 Interpretive Statements SINUS TACHYCARDIA FREQUENT VENTRICULAR PREMATURE COMPLEXES ABNORMAL ECG Electronically Signed On 02-01-2021 20:30:06 PARK WORKER by Aron Gonzalez D.O.
[2021-02-01] MEDS: LACTATED RINGERS 1,000 ML 100 ML IV CONT (18:27)
[2021-02-01] MEDS: IBUPROFEN IV 800 MG/200 ML 800 MG/200 ML BAG 400 MG IVPB ×2 (18:27→23:28)
--- NOTE | 2021-02-01 18:34 | ADMGEN ---
This patient, Rohit Kate Jr., was admitted to IMU Room 214-01. Patient/family oriented to hospital policies and general routines including ID bracelet, bed and alarms, visiting hours, pain management, procedures, bathroom and other care routines, personal items, smoking policy, room service/diet, and visiting hours. Information on how to activate the Rapid Response Team has been discussed. Patient/Family are encouraged to report perceived risks to care and to ask questions if they do not understand what they are told or what they should do.
[2021-02-01] MEDS: HYDROcodone/acetaminophen (*CRX) 10-325 MG TABLET 1 TAB PO (21:40)
[2021-02-01 22:02] LABS: Hematocrit 37.3 % (42.0-52.0); Hemoglobin 12.5 g/dL (14.0-18.0); Mean Corpuscular HGB Conc 33.5 g/dl (32-36); Mean Corpuscular Hemoglobin 31.2 pg (26-34); Mean Platelet Volume 10.5 fl (7.4-10.4); Platelet Count Result 348 k/mm3 (150-375); Red Blood Count 4.01 M/mm3 (4.6-6.20); Red Cell Distribution Width 13.7 % (11.5-14.5); White Blood Count 19.1 K/mm3 (4.5-10.0)
[2021-02-01 22:16] LABS: Albumin Level 3.5 g/dL (3.5-5.1); Alkaline Phosphatase 61 U/L (38-126); Anion Gap 9 mmol/L (8-16); Aspartate Amino Transferase 50 U/L (17-59); Bilirubin,Total 0.5 mg/dL (0.2-1.3); Blood Urea Nitrogen 19 mg/dL (9-20); Calcium 8.6 mg/dL (8.4-10.2); Carbon Dioxide 24 mmol/L (22-30); Chloride 103 mmol/L (98-107); Estimated CRCL calculation 113 ml/min; Estimated Glomerular Filt Rate > 60; Glucose 133 mg/dL (65-110); Magnesium 1.6 mg/dL (1.6-2.3); Potassium 4.3 mmol/L (3.4-5.0); Sodium 136 mmol/L (137-145)
[2021-02-01 22:17] LABS: Band Neutrophils Percent 10 % (0-6); Lymphocytes Absolute Manual 1.33 K/mm3 (1.1-4.5); Monocytes Absolute Manual 0.95 K/mm3 (0.1-0.90); Monocytes Percent Manual 5 % (3-9); Neutrophils Percent Manual 78 % (46-73); Total Cells Counted 100
[2021-02-01 22:18] LABS: Platelet Estimate Adequate (Adequate); Toxic Granulation Present (NORMAL)
[2021-02-01 22:27] LABS: Alanine Aminotransferase 40 U/L (4-50); Troponin I < 0.012 ng/mL (0.000-0.034)
[2021-02-01] MEDS: ENOXAPARIN 30 MG/0.3 ML SYRINGE SUB-Q (23:17)
[2021-02-01] MEDS: MORPHINE SULFATE (*CRX) 4 MG/ML INJ IV PUSH (23:40)
[2021-02-02] VITALS (11 sets, daily range): BP systolic 95–144; BP diastolic 53–92; PULSE 76–101; RESP 16–22; TEMP 36.6–36.9; O2SAT 18–98
[2021-02-02] MEDS: HYDROcodone/acetaminophen (*CRX) 10-325 MG TABLET 1 TAB PO ×3 (04:24→16:57)
--- NOTE | 2021-02-02 05:03 | PM.IMCN ---
Assessment and Plan Assessment and plan (1) Frequent PVCs: Code(s): I49.3 - Ventricular premature depolarization Status: Acute Assessment and Plan: EKG reviewed shows frequent PVCs this was in the post op period Patient asymptomatic Transferred to IMU Will correct electrolytes Doubtful echocardiogram will be of help at this time as patient is status post surgery will be difficult and technically challenging due to his soreness Continue to monitor Suspect secondary to anesthetic Can be worked up in the outpatient setting (2) Incisional hernia: Code(s): K43.2 - Incisional hernia without obstruction or gangrene Status: Chronic Assessment and Plan: Status post repair Follow surgery recommendation (3) Obesity (BMI 30-39.9): Code(s): E66.9 - Obesity, unspecified Status: Acute Assessment and Plan: Lifestyle and diet modification (4) Tobacco dependence: Code(s): F17.200 - Nicotine dependence, unspecified, uncomplicated Status: Acute Assessment and Plan: Patient quit smoking 10 years ago and transitioned to vaping (5) Vaping nicotine dependence, tobacco product: Code(s): F17.290 - Nicotine dependence, other tobacco product, uncomplicated Status: Acute Assessment and Plan: Patient currently actively vaping (6) GERD (gastroesophageal reflux disease): Code(s): K21.9 - Gastro-esophageal reflux disease without esophagitis Status: Acute Assessment and Plan: PPI as needed HPI Data of Consult Consult date: 02/02/21 Requesting Physician: Murali Ortiz MD Primary Care Provider: Glen Johnson MD Consult Narrative Narrative: Rohit Kate Jr. is a 60 year old male with past medical history significant for hypertension, gastroesophageal reflux disease, obesity, sigmoidectomy, tobacco dependence smoked 1 pack of cigarettes daily for 20+ years, currently vaping for the last 10 years, psoriatic arthritis. Patient is been seen on consult after surgical procedure for hernia repair it was noted that the patient had frequent PVCs in the immediate post up while in PACU. Patient has been in his usual state of health other than needing hernia repair. Denies any chest pain, palpitations ,dizziness, lightheadedness, syncope or near syncope, no nausea, no vomiting ,no abdominal pain ,no calf pain, no PND, no orthopnea, no vision changes, no shortness of breath ,no cough, no sputum production, no PND ,no orthopnea ,no leg swelling. Denies use of any recreational drugs or alcohol. Preliminary workup was significant for 12 lead EKG with frequent PVCs, Review of Systems Review of Systems: No complaints patient is status post hernia repair transfer to IMU due to frequent PVCs in the immediate post up. In the PACU unit Constitutional: Constitutional: Denies chills, Denies fatigue, Denies fever(s) and Denies night sweats Eyes: Eyes: Denies change in vision ENT: Denies dysphagia, Denies vertigo, Denies dizziness, Denies nasal congestion, Denies nasal discharge, Denies nasal obstruction and Denies odynophagia Cardiovascular: Cardiovascular: Denies chest pain, Denies chest pain at rest, Denies diaphoresis, Denies rapid heart rate, Denies edema, Denies irregular heart rhythm, Denies claudication, Denies leg edema, Denies lightheadedness, Denies radiating jaw, neck or arm pain, Denies palpitations, Denies dyspnea, Denies dyspnea on exertion, Denies orthopnea and Denies paroxysmal nocturnal dyspnea Respiratory: Respiratory: Denies cough, Denies dyspnea and Denies wheezing Gastrointestinal: Gastrointestinal: Denies dyspepsia, Denies heartburn, Denies nausea and Denies vomiting Comments: Soreness in the surgery site Genitourinary: Genitourinary: Denies dysuria Musculoskeletal: Musculoskeletal: Denies back pain, Denies arthralgias and Denies joint swelling Integumentary/Breasts: Skin/Breast: Denies rash Neurologic: Denies focal weakness and
--- NOTE | 2021-02-02 05:09 | ECG_ITS ---
Measurements Intervals [place] Rate: 86 P: 30 TX: 168 QRS: 15 QRSD: 96 T: 16 QT: 362 QTc: 433 Interpretive Statements SINUS RHYTHM VENTRICULAR PREMATURE COMPLEXES EARLY PRECORDIAL R/S TRANSITION BORDERLINE ECG Electronically Signed On 02-02-2021 16:27:55 PLANTING MATERIAL CARRIER by Aron Gonzalez D.O.
[2021-02-02 05:18] LABS: Hematocrit 32.6 % (42.0-52.0); Hemoglobin 11.2 g/dL (14.0-18.0); Mean Corpuscular HGB Conc 34.4 g/dl (32-36); Mean Corpuscular Hemoglobin 31.1 pg (26-34); Mean Corpuscular Volume 90.6 fl (80-100); Mean Platelet Volume 10.8 fl (7.4-10.4); Platelet Count Result 371 k/mm3 (150-375); Red Cell Distribution Width 13.7 % (11.5-14.5); White Blood Count 11.5 K/mm3 (4.5-10.0)
[2021-02-02] MEDS: IBUPROFEN IV 800 MG/200 ML 800 MG/200 ML BAG 400 MG IVPB ×4 (05:22→23:36)
[2021-02-02] MEDS: LACTATED RINGERS 1,000 ML 100 ML IV CONT ×2 (05:22→16:57)
[2021-02-02 05:30] LABS: Anion Gap 7 mmol/L (8-16); Blood Urea Nitrogen 18 mg/dL (9-20); Calcium 8.3 mg/dL (8.4-10.2); Carbon Dioxide 24 mmol/L (22-30); Chloride 100 mmol/L (98-107); Estimated CRCL calculation 113 ml/min; Estimated Glomerular Filt Rate > 60; Glucose 126 mg/dL (65-110); Potassium 4.2 mmol/L (3.4-5.0); Sodium 131 mmol/L (137-145)
[2021-02-02 06:18] LABS: Magnesium 1.6 mg/dL (1.6-2.3); Phosphorus 3.1 mg/dL (2.5-4.5)
[2021-02-02] MEDS: ENOXAPARIN 30 MG/0.3 ML SYRINGE SUB-Q ×2 (09:09→20:21)
[2021-02-02] MEDS: PANTOPRAZOLE 40 MG TABLET PO (09:09)
[2021-02-02] MEDS: ramipriL 5 MG CAPSULE 10 MG PO (09:09)
[2021-02-02] MEDS: MAGNESIUM SULF 2 GM/WATER 50ML 2 GM/50 ML BAG IVPB (09:09)
--- NOTE | 2021-02-02 12:23 | PM.PNGS ---
Progress Note: A&P Assessment and Plan (1) Incisional hernia: Code(s): K43.2 - Incisional hernia without obstruction or gangrene Status: Chronic Assessment and Plan: Having incisional pain associated with hernia repair with posterior component separation done yesterday. Advised to continue to use analgesics as needed. Patient to get up in chair today. Leave Ryder catheter today but possibly removed tomorrow. Labs look good. Making progress. (2) Frequent PVCs: Code(s): I49.3 - Ventricular premature depolarization Status: Acute Assessment and Plan: Not symptomatic. Hospitalist following but initial consult did not suggest any significant cardiac issue. Will transfer to [facility] with tele if okay with hospitalist today. (3) Obesity (BMI 30-39.9): Code(s): E66.9 - Obesity, unspecified Status: Chronic Subjective Subjective Date/Time Seen: 02/02/21 12:23 Post Op day: 1 Patient reports: still having pain, no flatus, no bowel movement and afebrile Interval history: still pretty sore from surgery yesterday. Pain medication does help. Has not really eaten much as yet. Has not been out of bed yet. No nausea or vomiting. Still having some PVCs but no rapid rhythms or hemodynamic instability. Hospitalist consultation appreciated. Review of Systems Review of Systems: All systems reviewed & are unremarkable except as noted in HPI and below Constitutional: Constitutional: Denies headache(s) Cardiovascular: Cardiovascular: Denies chest pain and Denies dyspnea Respiratory: Respiratory: Denies cough and Denies dyspnea Gastrointestinal: Gastrointestinal: Reports abdominal pain, Denies heartburn, Denies nausea and Denies vomiting Neurologic: Denies confusion and Denies headache(s) Exam Const: General: comfortable and no acute distress; No confusion Orientation/consciousness: patient oriented x3 and No confusion GI: Inspection: non-distended, incision ( Dressings dry and intact) and other ( serosanguineous fluid from both DANE drains.) GI Palp: Yes Soft to palpation, Yes Tenderness to palpation present (GI), No Guarding due to palpation present (GI) and No Rebound tenderness present Auscultation: Hypoactive bowel sounds present Neuro: General: patient oriented x3, no focal motor deficits and No confusion Extrem: General: no calf tenderness and no edema Psych: Affect: normal affect Insight: Good insight present (Psych) Judgement: Good judgement present (Psych) Objective Data Vital Signs Vital Signs: Vital Signs - 24 hr 02/01/21 14:36 02/01/21 14:50 02/01/21 15:05 Temperature 36.1 C L Pulse Rate 101 H 95 95 Respiratory Rate 14 14 12 Blood Pressure 147/107 H 145/102 H 146/99 H Pulse Oximetry 100 100 100 02/01/21 15:20 02/01/21 15:35 02/01/21 15:50 Temperature Pulse Rate 101 H 104 H 106 H Respiratory Rate 12 12 12 Blood Pressure 163/96 H 168/94 H 148/81 H Pulse Oximetry 98 94 95 02/01/21 16:05 02/01/21 16:20 02/01/21 16:35 Temperature Pulse Rate 109 H 100 109 H Respiratory Rate 12 14 12 Blood Pressure 139/88 154/96 H 134/80 Pulse Oximetry 94 92 95 02/01/21 16:50 02/01/21 17:05 02/01/21 17:45 Temperature 36.3 C L Pulse Rate 111 H 110 H 94 Respiratory Rate 14 13 18 Blood Pressure 147/74 H 145/93 H 125/84 Pulse Oximetry 98 97 96 02/01/21 18:00 02/01/21 18:30 02/01/21 19:00 Temperature 36.4 C 36.4 C 35.9 C L Pulse Rate 91 90 93 Respiratory Rate 14 14 16 Blood Pressure 125/64 126/83 131/81 Pulse Oximetry 98 98 98 02/01/21 19:53 02/01/21 20:00 02/01/21 21:00 Temperature 36.4 C 36.4 C Pulse Rate 84 91 84 Respiratory Rate 20 20 Blood Pressure 136/67 125/73 Pulse Oximetry 99 97 02/01/21 22:00 02/01/21 23:41 02/02/21 00:00 Temperature 36.2 C L 36.0 C L Pulse Rate 77 81 94 Respiratory Rate 20 20 Blood Pressure 128/83 114/70 Pulse Oximetry 99 97 02/02/21 02:00 02/02/21 04:00 02/02/21 06:00 Temperature
[2021-02-02] MEDS: MORPHINE SULFATE (*CRX) 4 MG/ML INJ IV PUSH (12:49)
--- NOTE | 2021-02-02 13:46 | PC.NURSE ---
On 02/02/21, the student, [Stephanie Mohan], provided care and completed [facility] documentation on this patient. I have reviewed the student's documentation and agree with the findings.
--- NOTE | 2021-02-02 14:11 | PM.IMPN ---
Progress Note: A&P Assessment and Plan (1) Frequent PVCs: Code(s): I49.3 - Ventricular premature depolarization Status: Acute Assessment and Plan: EKG on 02/01 reviewed showing frequent PVCs. Prior EKGs showing only mild bradycardia. Telemetry continued to show frequent PVCs. Patient is asymptomatic. Could be related to anesthesia or cardiac irritation from the recent surgery. Mag low end of normal and this was replaced. Continue to keep Mag >2.0 and Potassium >4.0. Consider echo. Continue tele. (2) Incisional hernia: Code(s): K43.2 - Incisional hernia without obstruction or gangrene Status: Chronic Assessment and Plan: Verena was diagnosed with an incisional hernia and now s/p surgical repair with mesh 02/01/21. Patient appears to be recovering well. Passing flatus. Tolerating current diet. Increase activity as tolerated. Follow surgery recommendation (3) GERD (gastroesophageal reflux disease): Code(s): K21.9 - Gastro-esophageal reflux disease without esophagitis Status: Acute Assessment and Plan: Stable. Continue Protonix as needed (4) Obesity (BMI 30-39.9): Code(s): E66.9 - Obesity, unspecified Status: Chronic Assessment and Plan: BMI 39. This can complicate other aspects of his health. Lifestyle and diet modification encouraged (5) Tobacco dependence: Code(s): F17.200 - Nicotine dependence, unspecified, uncomplicated Status: Acute Assessment and Plan: Patient quit smoking 10 years ago and transitioned to vaping. Patient was educated about abstaining from all nicotine products. (6) DVT prophylaxis: Code(s): Z29.9 - Encounter for prophylactic measures, unspecified Status: Acute Assessment and Plan: Lovenox (7) Hypertension: Code(s): I10 - Essential (primary) hypertension Status: Acute Subjective Date/time seen: 02/02/21 14:11 Interval history: Consulted on a 60yo male here for elective incisional hernia repair. Passing flatus. No n/v. No SOB. Slight substernal pain with deep breath or cough since the surgery. No recent stres test. No CP or increasing SOB prior to admission. Exam Narrative: AF 97.9 144/92 99 18 96% ra Gen - NARD lying semi-recumbent in bed Chest - lungs clear anteriorly and in the flanks CV - irregularly irregular; Tele showing PVCs and bigeminy Abd - Soft, +BS, obese. Dressing cover a majority of the abdomen and are clean, dry and intact. bulb to the left with thin dark red fluid Ext - No pedal edema. SCDs in place Neuro - Alert and oriented. Nonfocal exam. Psych - Nml mood and affect Skin - Warm and dry Objective Data Vital Signs Vital Signs: Vital Signs - 24 hr 02/01/21 14:36 02/01/21 14:50 02/01/21 15:05 Temperature 97.0 F L Pulse Rate 101 H 95 95 Respiratory Rate 14 14 12 Blood Pressure 147/107 H 145/102 H 146/99 H Pulse Oximetry 100 100 100 02/01/21 15:20 02/01/21 15:35 02/01/21 15:50 Temperature Pulse Rate 101 H 104 H 106 H Respiratory Rate 12 12 12 Blood Pressure 163/96 H 168/94 H 148/81 H Pulse Oximetry 98 94 95 02/01/21 16:05 02/01/21 16:20 02/01/21 16:35 Temperature Pulse Rate 109 H 100 109 H Respiratory Rate 12 14 12 Blood Pressure 139/88 154/96 H 134/80 Pulse Oximetry 94 92 95 02/01/21 16:50 02/01/21 17:05 02/01/21 17:45 Temperature 97.3 F L Pulse Rate 111 H 110 H 94 Respiratory Rate 14 13 18 Blood Pressure 147/74 H 145/93 H 125/84 Pulse Oximetry 98 97 96 02/01/21 18:00 02/01/21 18:30 02/01/21 19:00 Temperature 97.6 F 97.6 F 96.7 F L Pulse Rate 91 90 93 Respiratory Rate 14 14 16 Blood Pressure 125/64 126/83 131/81 Pulse Oximetry 98 98 98 02/01/21 19:53 02/01/21 20:00 02/01/21 21:00 Temperature 97.6 F 97.6 F Pulse Rate 84 91 84 Respiratory Rate 20 20 Blood Pressure 136/67 125/73 Pulse Oximetry 99 97 02/01/21 22:00 02/01/21 23:41 02/02/21 00:00 Temperature 97.
[2021-02-02] MEDS: ALVIMOPAN 12 MG CAPSULE PO (20:22)
--- NOTE | 2021-02-02 23:46 | PC.NURSE ---
patient turned over in bed and adjusted himself for comfort and his heart rate increased briefly into the 150's. went down with rest. encouraged to use incentive spirometer.
[2021-02-03] VITALS (8 sets, daily range): BP systolic 123–131; BP diastolic 72–94; PULSE 53–142; RESP 16–20; TEMP 36.1–37.2; O2SAT 96–99
[2021-02-03] MEDS: HYDROcodone/acetaminophen (*CRX) 10-325 MG TABLET 1 TAB PO ×3 (04:06→15:35)
[2021-02-03] MEDS: LACTATED RINGERS 1,000 ML 100 ML IV CONT (04:07)
[2021-02-03 05:08] LABS: Hematocrit 27.5 % (42.0-52.0); Hemoglobin 9.2 g/dL (14.0-18.0); Mean Corpuscular HGB Conc 33.5 g/dl (32-36); Mean Corpuscular Hemoglobin 31.1 pg (26-34); Mean Corpuscular Volume 92.9 fl (80-100); Mean Platelet Volume 10.6 fl (7.4-10.4); Platelet Count Result 251 k/mm3 (150-375); Red Blood Count 2.96 M/mm3 (4.6-6.20)
[2021-02-03 05:22] LABS: Anion Gap 5 mmol/L (8-16); Blood Urea Nitrogen 14 mg/dL (9-20); Carbon Dioxide 24 mmol/L (22-30); Chloride 101 mmol/L (98-107); Estimated CRCL calculation 150 ml/min; Estimated Glomerular Filt Rate > 60; Glucose 105 mg/dL (65-110); Potassium 4.1 mmol/L (3.4-5.0); Sodium 130 mmol/L (137-145)
--- NOTE | 2021-02-03 05:36 | PC.NURSE ---
This patient, Rohit Kate , was received from [facility] ([facility]) on 02/03/21 at 0535 via bed. Report taken from Mari HERNANDEZ. Patient/family oriented to unit policies and routines
--- NOTE | 2021-02-03 05:39 | PC.NURSE ---
patient transferred to [facility] med/surg. report given to
[2021-02-03] MEDS: IBUPROFEN IV 800 MG/200 ML 800 MG/200 ML BAG 400 MG IVPB ×4 (05:52→23:39)
[2021-02-03] MEDS: ramipriL 5 MG CAPSULE 10 MG PO (09:39)
[2021-02-03] MEDS: ALVIMOPAN 12 MG CAPSULE PO ×2 (09:40→21:07)
[2021-02-03] MEDS: ENOXAPARIN 30 MG/0.3 ML SYRINGE SUB-Q ×2 (09:40→21:07)
[2021-02-03] MEDS: PANTOPRAZOLE 40 MG TABLET PO (09:40)
[2021-02-03 11:07] LABS: Creatinine Urine 91.2 mg/dL
[2021-02-03 11:15] LABS: Sodium Urine Random 118 meq/L
--- NOTE | 2021-02-03 13:56 | PM.PNGS ---
Progress Note: A&P Assessment and Plan (1) Incisional hernia: Code(s): K43.2 - Incisional hernia without obstruction or gangrene Status: Chronic Assessment and Plan: Having incisional pain associated with hernia repair with posterior component separation done 02/01. Advised to continue to use analgesics as needed. Patient to get up in chair today. Labs look good except sodium chloride low may be because he is tolerating liquids well and also getting 100 cc of IV fluids. Will saline lock the IV now. ---- Making progress. Will ask nurse remove Ryder and straight cath q.8 hours p.r.n. unable to void (2) Frequent PVCs: Code(s): I49.3 - Ventricular premature depolarization Status: Acute Assessment and Plan: Not symptomatic. Hospitalist following but initial consult did not suggest any significant cardiac issue. (3) Obesity (BMI 30-39.9): Code(s): E66.9 - Obesity, unspecified Status: Chronic Assessment and Plan: Patient reports no restricted diet. He is passing gas tolerating full liquids will advance to soft diet for next meal. Subjective Subjective Date/Time Seen: 02/03/21 13:56 Patient lying in bed when I came in the room. He awakens easily. He denies bowel movement yet. Has been passing a lot of flatus. Has been tolerating his full liquid diet. He states the pain is gradually getting better. Review of Systems Review of Systems: All systems reviewed & are unremarkable except as noted in HPI and below Constitutional: Constitutional: Denies headache(s) ENT: Denies headache(s) Cardiovascular: Cardiovascular: Denies chest pain and Denies dyspnea Respiratory: Respiratory: Denies cough and Denies dyspnea Gastrointestinal: Gastrointestinal: Reports abdominal pain, Denies bloating, Denies constipation, Denies heartburn, Denies nausea and Denies vomiting Neurologic: Denies confusion and Denies headache(s) Psychiatric: Psychiatric: Denies confusion Exam Const: General: cooperative, comfortable, no acute distress, alert and awake; No confusion Orientation/consciousness: patient oriented x3 and No confusion Neck: Neck: normal visual inspection, no lymphadenopathy, trachea midline, supple, nontender and no JVD Thyroid: abnormal thyroid Resp: Effort & Inspection: normal respiratory effort Auscultation: clear to auscultation bilaterally Cardio: Rate: regular rate Rhythm: regular rhythm GI: Inspection: non-distended, incision ( Dressings dry and intact), obesity, scar, visible herniation ( Lower abdomen, associated with hand access port) and other ( serosanguineous fluid from both DANE drains.) Auscultation: Hypoactive bowel sounds present and normoactive bowel sounds Skin: General skin exam: normal color, turgor normal and no erythema Lesions: no lesions Rashes: no rashes Trauma: no lacerations or abrasions Neuro: General: patient oriented x3, no focal motor deficits and No confusion Cranial nerves: Yes Equal, round and reactive pupils present Motor exam (neuro): Motor abnormalities not present Psych: Affect: normal affect Thought process: Normal thought process present Insight: Good insight present (Psych) Judgement: Good judgement present (Psych) Objective Data Vital Signs Vital Signs: Vital Signs - 24 hr 02/02/21 16:00 02/02/21 19:45 02/02/21 20:00 Temperature 36.7 C 36.9 C Pulse Rate 89 97 96 Respiratory Rate 16 16 Blood Pressure 122/69 126/79 Pulse Oximetry 96 18 L 02/03/21 00:00 02/03/21 04:00 02/03/21 05:48 Temperature 36.1 C L 37.2 C Pulse Rate 95 100 53 L Respiratory Rate 18 18 Blood Pressure 125/94 H 123/76 Pulse Oximetry 96 99 02/03/21 08:00 Temperature Pulse Rate 53 L Respiratory Rate 18 Blood Pressure Pulse Oximetry 99 Intake/Output Intake/Output: Intake & Output 01/31/21 02/01/21 02/02/21 02/03/21 23:59 23:59 23:59 23:59 Intake Total 1400 3175 2820 Output Total 605 789 3732 Balance
--- NOTE | 2021-02-03 16:11 | PM.IMPN ---
Progress Note: A&P Assessment and Plan (1) Hyponatremia: Code(s): E87.1 - Hypo-osmolality and hyponatremia Status: Acute Assessment and Plan: FEna 0.6% => pre-renal IVF stopped today Add NaCl PO and encourage PO intake (2) Frequent PVCs: Code(s): I49.3 - Ventricular premature depolarization Status: Acute Assessment and Plan: EKG on 02/01 reviewed showing frequent PVCs. Prior EKGs showing only mild bradycardia. Telemetry continued to show frequent PVCs. Patient is asymptomatic. Could be related to anesthesia or cardiac irritation from the recent surgery. Mag low end of normal and this was replaced 02/02. Continue to keep Mag >2.0 and Potassium >4.0. Continue tele. F/u lab. (3) Incisional hernia: Qualifiers: Obstruction and gangrene presence: without obstruction or gangrene Qualified Code(s): K43.2 - Incisional hernia without obstruction or gangrene Code(s): K43.2 - Incisional hernia without obstruction or gangrene Status: Chronic Assessment and Plan: Verena was diagnosed with an incisional hernia and now s/p surgical repair with mesh 02/01/21. Patient appears to be recovering well. Passing flatus. Tolerating current diet. Increase activity as tolerated. Follow surgery recommendation (4) GERD (gastroesophageal reflux disease): Qualifiers: Esophagitis presence: esophagitis presence not specified Qualified Code(s): K21.9 - Gastro-esophageal reflux disease without esophagitis Code(s): K21.9 - Gastro-esophageal reflux disease without esophagitis Status: Acute Assessment and Plan: Stable. Continue Protonix as needed (5) Obesity (BMI 30-39.9): Code(s): E66.9 - Obesity, unspecified Status: Chronic Assessment and Plan: BMI 39. This can complicate other aspects of his health. Lifestyle and diet modification encouraged (6) Tobacco dependence: Code(s): F17.200 - Nicotine dependence, unspecified, uncomplicated Status: Acute Assessment and Plan: Patient quit smoking 10 years ago and transitioned to vaping. Patient was educated about abstaining from all nicotine products. (7) DVT prophylaxis: Code(s): Z29.9 - Encounter for prophylactic measures, unspecified Status: Acute Assessment and Plan: Lovenox (8) Hypertension: Qualifiers: Hypertension type: unspecified Qualified Code(s): I10 - Essential (primary) hypertension Code(s): I10 - Essential (primary) hypertension Status: Acute Subjective Date/time seen: 02/03/21 16:11 Interval history: Consulted on a 60yo male here for elective incisional hernia repair. Passing flatus. No n/v. No SOB. Slight substernal pain with deep breath or cough since the surgery. No recent stres test. No CP or increasing SOB prior to admission. Exam Narrative: Gen - NARD lying semi-recumbent in bed Chest - lungs clear anteriorly and in the flanks CV - Regular with occasional premature beats; Tele showing PVCs and bigeminy Abd - Soft, +BS, obese. Dressing cover a majority of the abdomen and are clean, dry and intact. bulb to the left with thin dark red fluid Ext - No pedal edema. SCDs in place Neuro - Alert and oriented. Nonfocal exam. Psych - Nml mood and affect Skin - Warm and dry Objective Data Vital Signs Vital Signs: Vital Signs - 24 hr 02/02/21 19:45 02/02/21 20:00 02/03/21 00:00 Temperature 98.5 F 96.9 F L Pulse Rate 97 96 95 Respiratory Rate 16 18 Blood Pressure 126/79 125/94 H Pulse Oximetry 18 L 96 02/03/21 04:00 02/03/21 05:48 02/03/21 08:00 Temperature 98.9 F Pulse Rate 100 53 L 53 L Respiratory Rate 18 18 Blood Pressure 123/76 Pulse Oximetry 99 99 02/03/21 15:19 Temperature 97.1 F L Pulse Rate 73 Respiratory Rate 16 Blood Pressure 128/72 Pulse Oximetry 98 Intake/Output Intake/Output: Intake & Output 01/31/21 02/01/21 02/02/21
[2021-02-03] MEDS: SODIUM CHLORIDE 500 MG TABLET PO (17:58)
[2021-02-04] MEDS: IBUPROFEN IV 800 MG/200 ML 800 MG/200 ML BAG 400 MG IVPB ×3 (05:18→17:48)
[2021-02-04 05:46] VITALS: BP 117/77; PULSE 78; RESP 20; TEMP 36.7; O2SAT 99
[2021-02-04 06:16] LABS: Hematocrit 26.2 % (42.0-52.0); Hemoglobin 8.8 g/dL (14.0-18.0); Mean Corpuscular HGB Conc 33.6 g/dl (32-36); Mean Corpuscular Hemoglobin 30.7 pg (26-34); Mean Corpuscular Volume 91.3 fl (80-100); Mean Platelet Volume 10.3 fl (7.4-10.4); Platelet Count Result 264 k/mm3 (150-375); Red Blood Count 2.87 M/mm3 (4.6-6.20); Red Cell Distribution Width 13.5 % (11.5-14.5); White Blood Count 8.5 K/mm3 (4.5-10.0)
[2021-02-04 06:27] LABS: Anion Gap 5 mmol/L (8-16); Blood Urea Nitrogen 11 mg/dL (9-20); Calcium 8.2 mg/dL (8.4-10.2); Carbon Dioxide 26 mmol/L (22-30); Chloride 103 mmol/L (98-107); Estimated CRCL calculation 130 ml/min; Estimated Glomerular Filt Rate > 60; Glucose 105 mg/dL (65-110); Magnesium 1.8 mg/dL (1.6-2.3); Potassium 3.9 mmol/L (3.4-5.0); Sodium 134 mmol/L (137-145)
[2021-02-04 08:00] VITALS: PULSE 78; RESP 20; O2SAT 99
[2021-02-04] MEDS: ALVIMOPAN 12 MG CAPSULE PO ×2 (10:37→21:19)
[2021-02-04] MEDS: ENOXAPARIN 30 MG/0.3 ML SYRINGE SUB-Q ×2 (10:37→21:19)
[2021-02-04] MEDS: ramipriL 5 MG CAPSULE 10 MG PO (10:37)
[2021-02-04] MEDS: PANTOPRAZOLE 40 MG TABLET PO (10:37)
[2021-02-04] MEDS: HYDROcodone/acetaminophen (*CRX) 10-325 MG TABLET 1 TAB PO ×3 (10:40→22:18)
[2021-02-04] MEDS: SODIUM CHLORIDE 500 MG TABLET PO ×2 (13:12→17:47)
[2021-02-04 14:00] VITALS: BP 133/76; PULSE 70; RESP 20; TEMP 36.3; O2SAT 99
--- NOTE | 2021-02-04 15:18 | WPDINTPN ---
Subjective Date/time seen: 02/04/21 15:18 Objective Data Vital Signs Vital Signs: Vital Signs - 24 hr 02/03/21 15:19 02/03/21 16:00 02/03/21 22:00 Temperature 97.1 F L 98.8 F Pulse Rate 73 72 78 Respiratory Rate 16 20 Blood Pressure 128/72 131/83 Pulse Oximetry 98 99 02/04/21 05:46 02/04/21 08:00 Temperature 98.1 F Pulse Rate 78 78 Respiratory Rate 20 20 Blood Pressure 117/77 Pulse Oximetry 99 99 Intake/Output Intake/Output: Intake & Output 02/01/21 02/02/21 02/03/21 02/04/21 23:59 23:59 23:59 23:59 Intake Total 1400 3175 4170 700 Output Total 397 351 3841 1650 Balance 1180 2920 370 -950 Meds/Results Medications: Active Medications Generic Name Dose Route Start Last Admin Trade Name Freq PRN Reason Stop Dose Admin Acetaminophen 500 mg 02/01/21 17:15 Acetaminophen 500 Mg Tablet PO Q6H PRN Mild Pain (1-3) or Fever Hydrocodone Bitart/Acetaminophen 1 tab 02/01/21 17:15 Hydrocodone/Acetaminophen (*Crx) 5-325 Mg Tablet PO Q4H PRN Pain Rated 4-6 Hydrocodone Bitart/Acetaminophen 1 tab 02/01/21 17:15 02/04/21 10:40 Hydrocodone/Acetaminophen (*Crx) 10-325 Mg Tablet PO 1 tab Q4H PRN Administration Pain Rated 7-10 Alvimopan 12 mg 02/02/21 21:00 02/04/21 10:37 Alvimopan 12 Mg Capsule PO 02/09/21 20:59 12 mg Q12HR FREDDY Administration Enoxaparin Sodium 30 mg 02/01/21 21:00 02/04/21 10:37 Enoxaparin 30 Mg/0.3 Ml Syringe SUB-Q 30 mg Q12HR FREDDY Administration Ibuprofen 800 mg in 200 mls @ 400 mls/hr 02/01/21 18:00 02/04/21 13:11 Caldolor 800 Mg/200 Ml IVPB 400 mls/hr Q6H FREDDY Administration Morphine Sulfate 2 mg 02/01/21 17:15 Morphine Sulfate (*Crx) 2 Mg/Ml Inj IV PUSH Q2H PRN Pain Rated 4-6 Morphine Sulfate 4 mg 02/01/21 17:15 02/02/21 12:49 Morphine Sulfate (*Crx) 4 Mg/Ml Inj IV PUSH 4 mg Q2H PRN Administration Pain Rated 7-10 Naloxone HCl 0.1 mg 02/01/21 17:15 Naloxone Hcl 0.4 Mg/Ml Vial IV PUSH Q2M PRN Opiate Reversal Ondansetron HCl 4 mg 02/01/21 17:15 Ondansetron Inj 4 Mg/2 Ml Vial IV PUSH Q4H PRN Nausea And Vomiting Pantoprazole Sodium 40 mg 02/02/21 09:00 02/04/21 10:37 Pantoprazole 40 Mg Tablet PO 40 mg QAM FREDDY Administration Piroxicam 20 mg 02/02/21 09:00 02/02/21 11:46 Piroxicam 10 Mg Capsule PO 03/04/21 08:59 Not Given DAILY FREDDY Ramipril 10 mg 02/02/21 09:00 02/04/21 10:37 Ramipril 5 Mg Capsule PO 10 mg DAILY FREDDY Administration Sodium Chloride 500 mg 02/03/21 17:00 02/04/21 13:12 Sodium Chloride 500 Mg Tablet PO 500 mg BID FREDDY Administration Labs Labs: Laboratory Results - last 24 hr 02/04/21 02/04/21 06:03 06:03 WBC 8.5 RBC 2.87 L Hgb 8.8 L Hct 26.2 L MCV 91.3 MCH 30.7 MCHC 33.6 RDW 13.5 Plt Count 264 MPV 10.3 Sodium 134 L Potassium 3.9 Chloride 103 Carbon Dioxide 26 Anion Gap 5 L BUN 11 Creatinine 0.70 Estim Creat Clear Calc 130 Estimated GFR > 60 Glucose 105 Calcium 8.2 L Magnesium 1.8
--- NOTE | 2021-02-04 17:44 | PM.IMPN ---
Progress Note: A&P Assessment and Plan (1) Hyponatremia: Code(s): E87.1 - Hypo-osmolality and hyponatremia Status: Acute Assessment and Plan: 02/03 Na 130 02/03 FEna 0.6% => pre-renal IVF stopped 02/03 02/03 Added NaCl PO and encourage PO intake 02/04 Na improved to 134 (2) Frequent PVCs: Code(s): I49.3 - Ventricular premature depolarization Status: Acute Assessment and Plan: EKG on 02/01 reviewed showing frequent PVCs. Prior EKGs showing only mild bradycardia. Telemetry continued to show frequent PVCs. Patient is asymptomatic. Could be related to anesthesia or cardiac irritation from the recent surgery. Mag low end of normal and this was replaced 02/02. Continue to keep Mag >2.0 and Potassium >4.0. Continue tele. F/u lab. (3) Incisional hernia: Qualifiers: Obstruction and gangrene presence: without obstruction or gangrene Qualified Code(s): K43.2 - Incisional hernia without obstruction or gangrene Code(s): K43.2 - Incisional hernia without obstruction or gangrene Status: Chronic Assessment and Plan: Verena was diagnosed with an incisional hernia and now s/p surgical repair with mesh 02/01/21. Patient appears to be recovering well. Passing stool. Tolerating current diet. Increase activity as tolerated. Follow surgery recommendation (4) GERD (gastroesophageal reflux disease): Qualifiers: Esophagitis presence: esophagitis presence not specified Qualified Code(s): K21.9 - Gastro-esophageal reflux disease without esophagitis Code(s): K21.9 - Gastro-esophageal reflux disease without esophagitis Status: Acute Assessment and Plan: Stable. Continue Protonix as needed (5) Obesity (BMI 30-39.9): Code(s): E66.9 - Obesity, unspecified Status: Chronic Assessment and Plan: BMI 39. This can complicate other aspects of his health. Lifestyle and diet modification encouraged (6) Tobacco dependence: Code(s): F17.200 - Nicotine dependence, unspecified, uncomplicated Status: Acute Assessment and Plan: Patient quit smoking 10 years ago and transitioned to vaping. Patient was educated about abstaining from all nicotine products. (7) DVT prophylaxis: Code(s): Z29.9 - Encounter for prophylactic measures, unspecified Status: Acute Assessment and Plan: Lovenox (8) Hypertension: Qualifiers: Hypertension type: unspecified Qualified Code(s): I10 - Essential (primary) hypertension Code(s): I10 - Essential (primary) hypertension Status: Acute Assessment and Plan: BP reviewed and stable 02/04 Subjective Date/time seen: 02/04/21 17:44 Interval history: 02/04 visit: Pain with bending forward. Able ambulate. Bowels moved. Tolerating diet. Still with oozing and bloody output in drains. Review of Systems Review of Systems: All systems reviewed & are unremarkable except as noted in HPI and below Exam Narrative: Alert. NAD. Oriented x3. Neck no JVD. Chest clear to auscultation. Heart regular rate no murmurs. Abdomen soft protuberant tender around incision. Both drains with small amounts of bloody discharge. Extremities without edema cyanosis or clubbing. Cranial nerves intact to inspection. Objective Data Vital Signs Vital Signs: Vital Signs - 24 hr 02/03/21 22:00 02/04/21 05:46 02/04/21 08:00 Temperature 98.8 F 98.1 F Pulse Rate 78 78 78 Respiratory Rate 20 20 20 Blood Pressure 131/83 117/77 Pulse Oximetry 99 99 99 Intake/Output Intake/Output: Intake & Output 02/01/21 02/02/21 02/03/21 02/04/21 23:59 23:59 23:59 23:59 Intake Total 1400 3175 4170 700 Output Total 927 740 5888 1650 Balance 1180 2920 370 -950 Meds/Results Medications: Active Medications Generic Name Dose Route Start Last Admin Trade Name Birdq PRN Reason Stop Dose Admin Acetaminophen 500 mg 02/01/21 17:15
[2021-02-04 22:00] VITALS: BP 147/76; PULSE 94; RESP 18; TEMP 36.1; O2SAT 98
--- NOTE | 2021-02-04 23:32 | PM.PNGS ---
Progress Note: A&P Assessment and Plan (1) Incisional hernia: Qualifiers: Obstruction and gangrene presence: without obstruction or gangrene Qualified Code(s): K43.2 - Incisional hernia without obstruction or gangrene Code(s): K43.2 - Incisional hernia without obstruction or gangrene Status: Chronic Assessment and Plan: Having incisional pain associated with hernia repair with posterior component separation done 02/01. Advised to continue to use analgesics as needed. ( patient mostly using the routine ibuprofen and not needing much else except occasional oral narcotic). Labs look good with sodium chloride Up a little overnight. Hemoglobin down a little to 8.8 but discussed with patient and he is not anywhere near needing a transfusion at this point. Will repeat in a.m.. Making progress. straight cath q.8 hours p.r.n. unable to void --- The patient states so far no problems with voiding. (2) Frequent PVCs: Code(s): I49.3 - Ventricular premature depolarization Status: Acute Assessment and Plan: Not symptomatic. Hospitalist following but initial consult did not suggest any significant cardiac issue. Hospitalist took him off tele today. (3) Obesity (BMI 30-39.9): Code(s): E66.9 - Obesity, unspecified Status: Chronic Assessment and Plan: Patient reports no restricted diet. He is advanced to soft diet and has been tolerating it okay. Subjective Subjective Date/Time Seen: 02/04/21 11:32 Post Op day: 4 Patient reports: no new complaints and feels better Interval history: patient tolerating a diet and has had another bowel movement. States he did get out the hallway and walk yesterday at least once. Review of Systems Review of Systems: All systems reviewed & are unremarkable except as noted in HPI and below Constitutional: Constitutional: Denies headache(s) ENT: Denies headache(s) Cardiovascular: Cardiovascular: Denies chest pain and Denies dyspnea Respiratory: Respiratory: Denies cough and Denies dyspnea Gastrointestinal: Gastrointestinal: Reports abdominal pain, Denies bloating, Denies constipation, Denies heartburn, Denies nausea and Denies vomiting Neurologic: Denies confusion and Denies headache(s) Psychiatric: Psychiatric: Denies confusion Exam Const: General: cooperative, comfortable, no acute distress, alert and awake; No confusion Orientation/consciousness: patient oriented x3 and No confusion HENMT: Head: normocephalic, atraumatic, no contusions and no scalp lesions Ears: external ears normal General nose exam: Normal external nose present Face and sinus: face symmetric and dry mucous membranes Mouth: Yes Normal oral and palatal mucosa present and Yes tongue normal Throat: posterior oropharynx normal Eyes: Conjunctivae: conjunctivae normal Sclera: sclerae normal Pupils: Equal, round and reactive pupils present EOM: EOMs intact bilaterally Neck: Neck: normal visual inspection, no lymphadenopathy, trachea midline, supple, nontender and no JVD Thyroid: abnormal thyroid Resp: Effort & Inspection: normal respiratory effort Auscultation: clear to auscultation bilaterally Cardio: Rate: regular rate Rhythm: regular rhythm GI: Inspection: incision ( Dressings intact not changed this date as there is no drain drainage) GI Palp: Yes Tenderness to palpation present (GI) ( Near incision in the midline) Auscultation: normal bowel sounds Skin: General skin exam: normal color, turgor normal and no erythema Lesions: no lesions Rashes: no rashes Trauma: no lacerations or abrasions Neuro: General: patient oriented x3, no focal motor deficits and No confusion Cranial nerves: Yes Equal, round and reactive pupils present Motor exam (neuro): Motor abnormalities not present Extrem: General: no clubbing, cyanosis or edema, no calf tenderness and no edema Psych: Affect: normal affect Thought process: Normal thought process present Ins
[2021-02-05 06:00] VITALS: BP 162/90; PULSE 68; RESP 18; TEMP 36.8; O2SAT 99
[2021-02-05 07:51] LABS: Hematocrit 27.7 % (42.0-52.0); Hemoglobin 9.2 g/dL (14.0-18.0); Mean Corpuscular HGB Conc 33.2 g/dl (32-36); Mean Corpuscular Hemoglobin 31.1 pg (26-34); Mean Corpuscular Volume 93.6 fl (80-100); Mean Platelet Volume 10.4 fl (7.4-10.4); Platelet Count Result 322 k/mm3 (150-375); Red Blood Count 2.96 M/mm3 (4.6-6.20); Red Cell Distribution Width 13.9 % (11.5-14.5); White Blood Count 8.1 K/mm3 (4.5-10.0)
[2021-02-05 08:02] LABS: Anion Gap 4 mmol/L (8-16); Blood Urea Nitrogen 12 mg/dL (9-20); Calcium 8.6 mg/dL (8.4-10.2); Carbon Dioxide 27 mmol/L (22-30); Chloride 100 mmol/L (98-107); Estimated CRCL calculation 130 ml/min; Estimated Glomerular Filt Rate > 60; Glucose 97 mg/dL (65-110); Potassium 3.9 mmol/L (3.4-5.0); Sodium 131 mmol/L (137-145)
[2021-02-05] MEDS: ALVIMOPAN 12 MG CAPSULE PO (09:05)
[2021-02-05] MEDS: PANTOPRAZOLE 40 MG TABLET PO (09:05)
[2021-02-05] MEDS: SODIUM CHLORIDE 500 MG TABLET PO (09:05)
[2021-02-05] MEDS: ENOXAPARIN 30 MG/0.3 ML SYRINGE SUB-Q (09:05)
[2021-02-05] MEDS: ramipriL 5 MG CAPSULE 10 MG PO (09:05)
[2021-02-05] MEDS: HYDROcodone/acetaminophen (*CRX) 10-325 MG TABLET 1 TAB PO (09:08)
--- NOTE | 2021-02-05 09:49 | PM.IMPN ---
Progress Note: A&P Assessment and Plan (1) Hyponatremia: Code(s): E87.1 - Hypo-osmolality and hyponatremia Status: Acute Assessment and Plan: 02/03 Na 130 02/03 FEna 0.6% => pre-renal IVF stopped 02/03 02/03 Added NaCl PO and encourage PO intake 02/04 Na improved to 134 02/05 Na slightly worse at 131. Suspect component of SIADH from pain and/or from IV fluids (Cumulative +4.8L). This should resolve with time in either case. Don't feel he need NaCl tabs at home (2) Frequent PVCs: Code(s): I49.3 - Ventricular premature depolarization Status: Acute Assessment and Plan: EKG on 02/01 reviewed showing frequent PVCs. Prior EKGs showing only mild bradycardia. Telemetry was showing frequent PVCs. Patient is asymptomatic. Could be related to anesthesia or cardiac irritation from the recent surgery. Mag was low end of normal and was replaced 02/02. Tele stopped now. (3) Incisional hernia: Qualifiers: Obstruction and gangrene presence: without obstruction or gangrene Qualified Code(s): K43.2 - Incisional hernia without obstruction or gangrene Code(s): K43.2 - Incisional hernia without obstruction or gangrene Status: Chronic Assessment and Plan: Patient was diagnosed with an incisional hernia and now s/p surgical repair with mesh 02/01/21. Patient recovering well. Passing stool. Tolerating current diet. Increase activity as tolerated. Follow surgery recommendations (4) Hypertension: Qualifiers: Hypertension type: unspecified Qualified Code(s): I10 - Essential (primary) hypertension Code(s): I10 - Essential (primary) hypertension Status: Acute Assessment and Plan: BP reviewed and slightly elelvated this morning but could be related to pain; otherwise stable 02/05. Continue Altace. Follow (5) Anemia: Code(s): D64.9 - Anemia, unspecified Status: Acute Assessment and Plan: Hgb normal prior to admission. Hgb dropped to 8-9 range felt related to blood loss from the surgery and from the IV fluids. Should improve with mobilization of the fluids and already better today. Follow (6) Psoriatic arthritis: Code(s): L40.50 - Arthropathic psoriasis, unspecified Status: Acute Assessment and Plan: Stable. Continue to hold MTX and Etanercept. (7) GERD (gastroesophageal reflux disease): Qualifiers: Esophagitis presence: esophagitis presence not specified Qualified Code(s): K21.9 - Gastro-esophageal reflux disease without esophagitis Code(s): K21.9 - Gastro-esophageal reflux disease without esophagitis Status: Acute Assessment and Plan: Stable. Continue Protonix (8) Obesity (BMI 30-39.9): Code(s): E66.9 - Obesity, unspecified Status: Chronic Assessment and Plan: BMI 39. This can complicate other aspects of his health. Lifestyle and diet modification were encouraged (9) Tobacco dependence: Code(s): F17.200 - Nicotine dependence, unspecified, uncomplicated Status: Acute Assessment and Plan: Patient quit smoking 10 years ago and transitioned to vaping. Patient was educated about abstaining from all nicotine products. (10) DVT prophylaxis: Code(s): Z29.9 - Encounter for prophylactic measures, unspecified Status: Acute Assessment and Plan: Lovenox Subjective Date/time seen: 02/05/21 09:49 Interval history: Consulted on a 60yo male here for elective incisional hernia repair. Resuming care. Chart reviewed. Walking in the halls. No complaints of chest pain, shortness of breath or palpitations. No nausea or vomiting. Midline abdominal pain is minimal and tolerable. Normal bowel movements now. Exam Narrative: AF 98.2 162/90 68 18 99% ra Gen - NARD Chest -clear to auscultation bilaterally. Normal respiratory rate CV -regular rate and rhythm. S1-S2 Abd - Soft, +BS. Dressing
--- NOTE | 2021-02-05 13:02 | PM.DS ---
DS: Admitting Diagnosis Discharge Date 02/05/2021 Admitting Diagnosis incisional hernia obesity tobacco smoker psoriatic arthritis DS: Discharge Diagnosis Discharge Diagnosis (1) Incisional hernia: Qualifiers: Obstruction and gangrene presence: without obstruction or gangrene Qualified Code(s): K43.2 - Incisional hernia without obstruction or gangrene Code(s): K43.2 - Incisional hernia without obstruction or gangrene Status: Chronic (2) Obesity (BMI 30-39.9): Code(s): E66.9 - Obesity, unspecified Status: Chronic (3) Smoker: Code(s): F17.200 - Nicotine dependence, unspecified, uncomplicated Status: Chronic (4) Psoriatic arthritis: Code(s): L40.50 - Arthropathic psoriasis, unspecified Status: Chronic (5) Anemia: Code(s): D64.9 - Anemia, unspecified Status: Acute DS: Summary Hospital Course Hospital Course: patient is a 60-year-old man who underwent laparoscopic sigmoidectomy and repair of colovesical fistula 2 years ago. He developed a wide-mouth incisional hernia in the lower abdomen. He was taken to surgery on the day of admission 02/01/2021 and underwent incisional hernia repair with mesh and bilateral transversus abdominis myofascial flap advancement. Postoperatively, the patient did well. IV analgesics were used for pain control. He was watched in I a.m. you the night after surgery and he as he had some PVCs in the recovery room. Hospitalist Service saw him and these were asymptomatic. He was transferred to [facility] floor with telemetry and continued to improve. He had no symptomatic cardiac arrhythmia. His pain gradually improved and his bowel function returned. His diet was advanced slowly and on the day of discharge he was on regular food. He was anemic on discharge but his H&H is stable. This was likely due to a combination of operative losses as well as dilutional effects of IV fluids postoperatively. He is comfortable on oral analgesics and able to be discharged on 02/05/2021. His retro rectus DANE drain in the left lower quadrant was removed prior to discharge. His subcutaneous right lower quadrant DANE drain will be maintained and the output monitored at home. He will continue to dress his abdominal incision daily with dry gauze. He will be seen in the office on 02/08/2021 for postop check, removal of his wound eliza and possibly removal of his remaining DANE drain. Status at Discharge Functional status at discharge: independent ambulation Overall status at discharge: patient is progressing back to baseline Time Spent with Patient Time attestation: Total time spent providing and/or coordinating discharge services: Exam Const: General: comfortable and no acute distress; No confusion Orientation/consciousness: patient oriented x3 and No confusion GI: Inspection: non-distended, incision ( Dry with minimal drainage, healing well), obesity and other ( serosanguineous fluid in both DANE drains.) GI Palp: Yes Soft to palpation, Yes Tenderness to palpation present (GI) ( mild appropriate incisional tenderness), No Guarding due to palpation present (GI) and No Rebound tenderness present Auscultation: normal bowel sounds Neuro: General: patient oriented x3, no focal motor deficits and No confusion Extrem: General: no calf tenderness and no edema Psych: Affect: normal affect Insight: Good insight present (Psych) Judgement: Good judgement present (Psych) DS: Data Data Completed and Pending Completed studies during hospitalization: Pending at discharge 02/01/21 11:21 Surgical [PTH] Routine Labs on day of discharge: Labs from last 24 hours 02/05/21 02/05/21 07:30 07:30 WBC 8.1 RBC 2.96 L Hgb 9.2 L Hct 27.7 L MCV 93.6 MCH 31.1 MCHC 33.2 RDW 13.9 Plt Count 322 MPV 10.4 Sodium 131 L Potassium 3.9 Chloride 100 Carbon Dioxide 27 Anion Gap 4 L BUN 12 Creatinine 0.70
== END 2021-02-05 14:17 | disposition home or self-care (01) | DRG 354 ==
LOC: ANHSURGERY 16:03 → ANHIMU 16:03 → ANH3MEDSUR 02-03 05:34
PROVIDERS: Internal Medicine; Admitting Provider Surgery; PCP Family Medicine; Visit Provider Surgery
PROC: 0WQF0ZZ Repair Abdominal Wall, Open Approach (ICD-10-PCS; principal; 2021-02-01 10:30)
DX: K43.2 Incisional hernia without obstruction or gangrene (principal); E87.1 Hypo-osmolality and hyponatremia; I49.3 Ventricular premature depolarization; D64.9 Anemia, unspecified; L40.50 Arthropathic psoriasis, unspecified; F17.290 Nicotine dependence, other tobacco product, uncomplicated; K21.9 Gastro-esophageal reflux disease without esophagitis; I10 Essential (primary) hypertension; E66.9 Obesity, unspecified; Z68.38 Body mass index [BMI] 38.0-38.9, adult; Z79.899 Other long term (current) drug therapy
CPT/HCPCS: 36415; 71046; 80048; 80053; 82570; 83735; 84100; 84300; 84484; 85025; 85027; 86850; 86900; 86901; 88302; 93005; A9270; C1781; C9803; J0330; J0690; J1100; J1170; J1650; J1741; J1885; J2250; J2270; J2405; J2704; J2710; J3010; J3475; J7120; U0003; U0005

== ENCOUNTER 2021-08-18 18:46 | Emergency (ER) | payer OTHER, SELFPAY ==
[2021-08-18 18:54] VITALS: BP 150/95; PULSE 74; RESP 16; TEMP 36.4; O2SAT 100
--- NOTE | 2021-08-18 18:57 | ED.GENADULT ---
HPI - General Adult General Chief complaint: Dizziness Stated complaint: dizzy,vomiting,sweats History of Present Illness HPI narrative: Patient is a 61-year-old male who presents to the [facility] via POV for evaluation of nausea and vomiting that began at 930 this morning. Additionally, patient reports intermittent dizziness coming sweats, chills, and hot flashes. He reports 5 episodes of vomiting undigested food. Last episode of vomiting was at 1230 this afternoon. Denies taking OTC meds for symptoms. Nothing improves or worsen symptoms. Denies known exposure or sick contacts. Related Data Home Medications Medication Instructions Recorded Confirmed folic acid 1 mg tablet 3 mg PO DAILY 01/04/19 03/08/21 piroxicam 20 mg capsule 20 mg PO DAILY 01/04/19 03/08/21 tramadol 50 mg tablet 50 mg PO Q6H PRN Pain 01/04/19 03/08/21 etanercept 50 mg/mL (1 mL) 50 mg subcut WEEKLY 12/27/19 03/08/21 subcutaneous syringe (Enbrel) methotrexate 2.5 mg/mL oral 25 mg PO WEEKLY 01/23/21 03/08/21 solution Allergies Allergy/AdvReac Type Severity Reaction Status Date / Time No Known Allergies Allergy Unknown Verified 03/08/21 10:12 Review of Systems Review of Systems: Pertinent negatives: fever, malaise, change in appetite, poor p.o. intake, frequently loss, bloody stools, extremity paresthesias, headache, dizziness, LOC, denies fever, chills, poor p.o. intake, myalgias, flu-like symptoms, ear pain/drainage, sinus trouble, headache, nasal congestion, rhinorrhea, lymphadenopathy, LOC, inability to swallow, drooling, hoarseness, halitosis, abdominal pain, nausea, vomiting, diarrhea, cough, wheezing, abdominal pain, diarrhea, constipation, belching, bloating, dry mouth, heartburn, jaundice, vomiting blood, shortness of breath, chest pain, and heart palpitations/murmurs. [facility] Past Medical History Medical History GERD (gastroesophageal reflux disease) Hypertension Obesity (BMI 30-39.9) Psoriatic arthritis Surgical History Surgical History H/O umbilical hernia repair History of carpal tunnel surgery of right wrist History of incisional hernia repair 02/01/21 Incisional hernia repair with soft polypropylene mesh, bilateral transversus abdominis myofascial flap advancement, 6 cm on the left, 8 cm on the right History of inguinal hernia repair History of total replacement of right shoulder joint Status post laparoscopic-assisted sigmoidectomy with take down splenic flexure; hand sewn colorectal anastomosis repair of urinary bladder fistula 02/18/19 Family History Family History Mother Family history of diabetes mellitus in first degree relative Family history of coronary artery disease Family history of heart disease in male family member before age 55 Sibling Family history of diabetes mellitus in first degree relative Other Cerebrovascular accident Diabetes mellitus Family history of cardiovascular disease Hypertension Social History Social History Social History: Single Smoking packs per day: 1 Smoking cigarettes per day: 20.0 Years smoked: 40 Smoking pack-years: 40.00 Smoking status: Current every day smoker Tobacco type: e-cigarettes/vaping Second hand tobacco smoke exposure: No Smoking end date: 02/24/11 Additional smoking assessment comments: QUIT CIGARETTES ~02/24/10 Alcohol intake: former Alcohol use details: 1-2 EVERY 3-4 MONTHS Substance use: current Substance use type: marijuana Other substance usage details: GUMMIES TO SLEEP Last use: 01/20/21 Additional living arrangements comments: daughters live with him Gender identity (if verbalized by the patient): Male Sexual Orientation (if Verbalized by the Patient): Straight or Heterosexual Spiritual ca
== END 2021-08-18 19:11 | disposition home or self-care (01) ==
PROVIDERS: Emergency Provider Nurse Practitioner Family; PCP Family Medicine
DX: R11.2 Nausea with vomiting, unspecified (principal); K21.9 Gastro-esophageal reflux disease without esophagitis; I10 Essential (primary) hypertension; E66.9 Obesity, unspecified; Z68.34 Body mass index [BMI] 34.0-34.9, adult; L40.50 Arthropathic psoriasis, unspecified; Z96.611 Presence of right artificial shoulder joint; F17.290 Nicotine dependence, other tobacco product, uncomplicated
CPT/HCPCS: 99213; G0463

== ENCOUNTER → 2021-12-17 09:19 | Outpatient (CLI) | payer OTHER, SELFPAY ==
--- NOTE | ~2021-12-17 | CT_ITS ---
EXAMINATION: CT lung screening DATE: 12/17/2021 09:32 INDICATION: Personal history of tobacco dependence TECHNIQUE: Computed tomography (CT) of the chest was performed without intravenous contrast. The dose -length product was 226.47 mGy-cm. Automated exposure control and iterative reconstruction technique were employed. COMPARISON: CT dated 12/15/2019 FINDINGS: Heart size is normal. No significant pleural or pericardial effusion. There are calcified g ranulomas in the spleen. No thoracic lymphadenopathy. There are gallstones. There is focal atelectasi s/scarring left upper lobe. No endobronchial lesions. There are a few scattered calcified granulomas. There are a few 1-2 mm upper lobe nodules which are not clearly calcified. There is moderate thoraci c spondylosis. IMPRESSION: 1. Lung-RADS category 2: Benign appearance or behavior. Continue annual screening with noncontrast lo w-dose chest CT in 12 months. Reviewed, dictated and finalized at location B. IMPRESSION: 1. Lung-RADS category 2: Benign appearance or behavior. Continue annual screeni ng with noncontrast low-dose chest CT in 12 months.
== END ==
PROVIDERS: PCP Family Medicine; Visit Provider Physician Assistant
DX: Z12.2 Encounter for screening for malignant neoplasm of respiratory organs (principal); Z87.891 Personal history of nicotine dependence
CPT/HCPCS: 71271

== ENCOUNTER 2022-03-20 14:07 | Outpatient (CLI) | payer BC, SELFPAY ==
--- NOTE | ~2022-03-20 | XR_ITS ---
EXAMINATION: XR_CERV2-3V_CR DATE: 03/20/2022 14:50 INDICATION: Pain in left shoulder. TECHNIQUE: 3 views of cervical spine were obtained. COMPARISON: None. FINDINGS: There is 2 mm anterolisthesis of C4 on C5 and 2 mm retrolisthesis of C5 on C6. There is 3 d egrees dextrocurvature of cervical spine. Vertebral body heights are normal. There is mildly decrease d disc height at C4-C5 and severely decreased disc height at C5-C6 and C6-C7. There is multilevel unc overtebral joint osteoarthritis, severe bilaterally at C5-C6 and C6-C7. There is multilevel mild face t joint osteoarthritis. There is mild central canal stenosis at C4-C5, C5-C6, and C6-C7. No preverteb ral soft tissue swelling. IMPRESSION: 1. Severe cervical spondylosis. Reviewed, dictated and finalized at location A. RPRETER AND TRANSLATOR
--- NOTE | ~2022-03-20 | XR_ITS ---
EXAMINATION: XR shoulder LT min 2V DATE: 03/20/2022 14:50 INDICATION: Left shoulder pain. TECHNIQUE: 4 views of left shoulder were obtained. COMPARISON: Left shoulder radiographs 06/12/2011 FINDINGS: There is superior subluxation of humeral head with respect to glenoid with narrowing of the subacromial space, consistent with rotator cuff tear. No fracture. There is moderate osteoarthritis of glenohumeral joint and acromioclavicular joint. IMPRESSION: 1. Polyarticular osteoarthritis. 2. Left rotator cuff tear. Reviewed, dictated and finalized at location A. MENDER
== END 2022-03-20 14:08 ==
PROVIDERS: PCP Family Medicine; Visit Provider Family Medicine
DX: M25.512 Pain in left shoulder (principal); M43.02 Spondylolysis, cervical region; M19.012 Primary osteoarthritis, left shoulder; M75.102 Unspecified rotator cuff tear or rupture of left shoulder, not specified as traumatic
CPT/HCPCS: 72040; 73030

== ENCOUNTER 2022-07-11 14:07 | Outpatient (CLI) | payer BC, SELFPAY ==
--- NOTE | ~2022-07-11 | CT_ITS ---
EXAMINATION: CT shoulder LT wo con DATE: 07/11/2022 14:36 INDICATION: Left shoulder pain and osteoarthritis for preoperative planning TECHNIQUE: High resolution computed tomography (CT) of the left shoulder was performed without intrav enous contrast. Additional sagittal and coronal reconstructions were performed. Dose Velasquez The dose-length product was 517.11 mGy-cm. COMPARISON: None FINDINGS: No fracture. There is cephalad subluxation of the left humeral head with respect to the glenoid with narrowing of the cervix normal the apex of the humeral head now abutting and resulting in early remod eling of the undersurface of the acromion. This be consistent with rotator cuff tear and there is cor responding severe fatty atrophy of the supraspinatus and infraspinatus muscle bellies suggesting thes e changes are chronic. There is moderate nonuniform joint space narrowing at the glenohumeral joint. Subarticular cystic changes are seen along the inferior rim of the glenoid. Small marginal osteophyte s along the anterior rim of the glenoid and moderate size marginal osteophytes along the humeral head . There is additional moderate osteoarthritis at the acromioclavicular joint. Small glenohumeral join t effusion with loose osteochondral bodies at the deep subscapular recess. There are couple tiny calc ified nodules consistent with old granulomatous disease at the left apex. Atherosclerotic coronary ar becki calcifications. Severe lower cervical spondylosis. IMPRESSION: 1. Left rotator cuff arthropathy with cephalad subluxation of the humeral head, secondary remodeling along the undersurface of the acromion and moderate to severe fatty atrophy of the supraspinatus and infraspinatus muscle belly suggesting chronic rotator cuff tears. 2. Moderate left glenohumeral and acromioclavicular osteoarthritis. Reviewed, dictated and finalized at location A. IMPRESSION: 1. Left rotator cuff arthropathy with cephalad subluxation of the humeral head, secondary remodeling along the undersurface of the acromion and moderate to se devon fatty atrophy of the supraspinatus and infraspinatus muscle belly suggesti ng chronic rotator cuff tears. 2. Moderate left glenohumeral and acromioclavicular osteoarthritis.
== END 2022-07-11 14:08 | disposition home or self-care (01) ==
PROVIDERS: PCP Family Medicine; Visit Provider Orthopaedic Surgery
DX: M75.102 Unspecified rotator cuff tear or rupture of left shoulder, not specified as traumatic (principal); M19.012 Primary osteoarthritis, left shoulder; X58.XXXA Exposure to other specified factors, initial encounter
CPT/HCPCS: 73200

== ENCOUNTER 2022-08-21 11:21 | Outpatient (CLI) | payer BC, SELFPAY ==
[2022-08-21 12:06] LABS: Urine Cotinine NEGATIVE
== END 2022-08-21 11:22 | disposition home or self-care (01) ==
LOC: ANHLAB 11:23
PROVIDERS: PCP Family Medicine; Visit Provider Orthopaedic Surgery
DX: F17.290 Nicotine dependence, other tobacco product, uncomplicated (principal); F17.200 Nicotine dependence, unspecified, uncomplicated
CPT/HCPCS: 80307

== ENCOUNTER 2022-08-22 10:11 | Outpatient (CLI) | payer BC, SELFPAY ==
--- NOTE | 2022-08-22 10:22 | ECG_ITS ---
Measurements Intervals [place] Rate: 55 P: 10 MD: 177 QRS: 51 QRSD: 96 T: 26 QT: 391 QTc: 374 Interpretive Statements SINUS BRADYCARDIA COMPARED TO ECG 02/02/2021 09:32:14 SINUS BRADYCARDIA NOW PRESENT Electronically Signed On 08-22-2022 11:51:32 CDT by Darvin Day M.D.
== END 2022-08-22 10:12 | disposition home or self-care (01) ==
LOC: ANHCARD 10:15
PROVIDERS: PCP Family Medicine; Visit Provider Orthopaedic Surgery
DX: I10 Essential (primary) hypertension (principal); R00.1 Bradycardia, unspecified
CPT/HCPCS: 93005

== ENCOUNTER 2022-09-30 08:45 | Outpatient (CLI) | payer BC, SELFPAY ==
[2022-09-30 10:15] LABS: Basophils Percent Auto 0.3 % (0.2-1.2); Eosinophils Absolute Auto 0.2 K/mm3 (0-0.3); Eosinophils Percent Auto 2.1 % (0-4.4); Hematocrit 41.3 % (42.0-52.0); Hemoglobin 13.8 g/dL (14.0-18.0); Immature Granulocyte Absolute 0.03 K/mm3 (0.00-0.031); Immature Granulocyte Percent A 0.3 % (0-0.5); Lymphocytes Absolute Auto 2.65 K/mm3 (0.9-3.2); Lymphocytes Percent Auto 30.2 % (18.3-44.2); Mean Corpuscular HGB Conc 33.4 g/dl (32-36); Mean Corpuscular Hemoglobin 31.2 pg (26-34); Mean Corpuscular Volume 93.4 fl (80-100); Monocytes Absolute Auto 0.6 K/mm3 (0.1-0.6); Monocytes Percent Auto 7.1 % (2.6-8.5); Neutrophils Absolute Auto 5.3 K/mm3 (1.3-6.7); Platelet Count Result 306 k/mm3 (150-375); Red Blood Count 4.42 M/mm3 (4.6-6.20); Red Cell Distribution Width 14.3 % (11.5-14.5); White Blood Count 8.8 K/mm3 (4.5-10.0)
== END 2022-09-30 08:46 | disposition home or self-care (01) ==
PROVIDERS: PCP Family Medicine; Visit Provider Orthopaedic Surgery
DX: M12.812 Other specific arthropathies, not elsewhere classified, left shoulder (principal); M75.102 Unspecified rotator cuff tear or rupture of left shoulder, not specified as traumatic
CPT/HCPCS: 36415; 85025; 87081

== ENCOUNTER 2022-10-04 08:42 | Emergency (ER) | payer BC, SELFPAY ==
--- NOTE | ~2022-10-04 | CT_ITS ---
EXAMINATION: CT lumbar spine wo con DATE: 10/04/2022 09:36 INDICATION: Low back pain. TECHNIQUE: Computed tomography (CT) of the lumbar spine was performed without intravenous contrast. A utomated exposure control and iterative reconstruction technique were employed. The dose-length produ ct was 1393.42 mGy-cm. COMPARISON: None FINDINGS: There is a 5 mm stone in left kidney. Aortic atherosclerosis is noted. There is 3 mm hair listhesis of L4 on L5. There is mild chronic anterior wedging of T11 and T12 vertebral bodies. There is mildly decreased disc height at T12-L1 and L4-L5 and severely decreased disc height at L5-S1. The following disc levels are specifically discussed: L1-L2: The disc does not extend beyond the endplate margin. There is mild bilateral facet joint osteo arthritis. There is no neural foraminal stenosis. There is no central canal stenosis. L2-L3: The disc is bulging. There is moderate right and mild left facet joint osteoarthritis. There i s mild bilateral neural foraminal stenosis. There is mild central canal stenosis. L3-L4: The disc is bulging. There is moderate bilateral facet joint osteoarthritis. There is mild elena ateral neural foraminal stenosis. There is mild central canal stenosis. L4-L5: The disc is bulging. There is severe bilateral facet joint osteoarthritis. There is moderate b ilateral neural foraminal stenosis. There is moderate central canal stenosis. L5-S1: The disc is bulging. There is severe bilateral facet joint osteoarthritis. There is mild right and moderate left neural foraminal stenosis. There is mild central canal stenosis. IMPRESSION: 1. Severe lower lumbar spondylosis. Reviewed, dictated and finalized at location A.
[2022-10-04 09:02] VITALS: BP 143/95; PULSE 62; RESP 16; TEMP 36.8; O2SAT 99
--- NOTE | 2022-10-04 09:14 | ED.BACK ---
HPI - Back Pain/Injury General Chief Complaint: Back Pain/Injury <Ira Gilmore PA-C - Last Filed: 10/04/22 18:13> Stated Complaint: back pain <Ira Gilmore PA-C - Last Filed: 10/04/22 18:13> Time Seen by Provider: 10/04/22 09:01 <Ira Gilmore PA-C - Last Filed: 10/04/22 18:13> History of Present Illness HPI Narrative: 62-year-old male with a history of psoriatic arthritis, hypertension, GERD reports for evaluation for low back pain for several weeks. Patient states he woke up one morning with low midline back pain that at times radiates to his left hip. He does report paresthesias in his feet since the onset of back pain but denies pain or paresthesias to the remainder of the lower extremity. He denies recent injury or trauma, spinal procedures, fever, vomiting, dysuria. Denies history of IV drug use, bowel or bladder incontinence or retention, saddle anesthesia. Reports he went to urgent care about a week ago and was prescribed a muscle relaxer and was advised to come to the ED if he did not have improvement or to follow-up with his PCP. Patient states he called his PCP yesterday and is waiting to hear back, but came to the ED today due to persistent pain. He is able to ambulate but does state that movement makes the pain worse. He does find relief with certain positions. Reports he has been taking all of his medications other than tramadol because he is out of tramadol. <Ira Gilmore PA-C - Last Filed: 10/04/22 18:13> Related Data Home Medications: Home Medications Medication Instructions Recorded Confirmed folic acid 1 mg tablet 3 mg PO DAILY 01/04/19 09/30/22 piroxicam 20 mg capsule 20 mg PO DAILY 01/04/19 09/30/22 tramadol 50 mg tablet 50 mg PO Q6H PRN Pain 01/04/19 09/30/22 methotrexate 2.5 mg/mL oral 25 mg PO WEEKLY 01/23/21 09/30/22 solution certolizumab pegol 400 mg/2 mL 400 mg subcut .bi weekly 05/15/22 09/30/22 (200 mg/mL x2) subcutaneous syringe kit (Cimzia) cholecalciferol (vitamin D3) 50 50 mcg PO DAILY 09/30/22 09/30/22 mcg (2,000 unit) tablet methocarbamol 500 mg tablet 500 mg PO PRN PRN Muscle Pain 09/30/22 09/30/22 <Ira Gilmore PA-C - Last Filed: 10/04/22 18:13> Allergies/Adverse Reactions: Allergies Allergy/AdvReac Type Severity Reaction Status Date / Time No Known Allergies Allergy Unknown Verified 10/04/22 09:02 <Ira Gilmore PA-C - Last Filed: 10/04/22 18:13> Review of Systems Review of Systems: CONSTITUTIONAL: Denies fever, chills EYES: Denies visual changes, redness, or discharge. ENT: Denies rhinorrhea, congestion, sore throat, or otalgia. CARDIOVASCULAR: Denies chest pain, palpitations, or edema. RESPIRATORY: Denies cough or dyspnea. GASTROINTESTINAL: Denies abdominal pain, nausea, vomiting, or diarrhea. GENITOURINARY: Denies dysuria or hematuria. SKIN: Denies rash or itching. MUSCULOSKELETAL: See HPI NEUROLOGIC: Denies headache, numbness, dizziness, or weakness. PSYCHIATRIC: Denies anxiety or depression. <Ira Gilmore PA-C - Last Filed: 10/04/22 18:13> [facility] Past Medical History Medical History: Medical History GERD (gastroesophageal reflux disease) Hypertension Obesity (BMI 30-39.9) Psoriatic arthritis <Ira Gilmore PA-C - Last Filed: 10/04/22 18:13> Surgical History Surgical History: Surgical History H/O umbilical hernia repair History of carpal tunnel surgery of right wrist History of incisional hernia repair 02/01/21 Incisional hernia repair with soft polypropylene mesh, bilateral transversus abdominis myofascial flap advancement, 6 cm on the left, 8 cm on the right History of inguinal hernia repair History of total replacement of right shoulder joint Status post laparoscopic-assisted sigmoidectomy with take down splenic flexure; hand sewn colorectal anastom
[2022-10-04] MEDS: KETOROLAC 30 MG/ML VIAL (*BKC) IM (09:28)
[2022-10-04] MEDS: CYCLOBENZAPRINE HCL 10 MG TABLET PO (10:20)
[2022-10-04 10:39] VITALS: BP 134/80; PULSE 55; RESP 16; O2SAT 98
== END 2022-10-04 10:39 | disposition home or self-care (01) ==
PROVIDERS: Emergency Provider Physician Assistant; PCP Family Medicine
DX: M54.50 Low back pain, unspecified (principal); I10 Essential (primary) hypertension; Z87.891 Personal history of nicotine dependence
CPT/HCPCS: 72131; 96372; 99284; A9270; J1885

== ENCOUNTER 2022-12-18 12:56 | Outpatient (CLI) | payer BC, SELFPAY ==
--- NOTE | ~2022-12-18 | CT_ITS ---
EXAMINATION:CT lung screening DATE: 12/18/2022 13:15 INDICATION: Nicotine dependence, unspecified, uncomplicated. Smoker who quit 12 years ago with 30 pac k year history. TECHNIQUE: Computed tomography (CT) of the chest was performed without intravenous contrast. Automate d exposure control and iterative reconstruction technique were employed. The dose-length product (DLP ) was 562.65 mGy-cm. COMPARISON: Chest CT 12/17/2021 FINDINGS: The lungs demonstrate minimal atelectasis. A calcified right lung nodule and calcified righ t hilar and mediastinal lymph nodes are consistent with old granulomatous disease. No pleural effusio n. The heart size is normal. There are coronary artery calcifications. No pericardial effusion. Calci fications in the liver and spleen are consistent with old granulomatous disease. There are gallstones in the gallbladder, which is normal in size. There is a 5 mm stone in left kidney. There is a right shoulder arthroplasty. There is severe cervical spondylosis and mild thoracic spondylosis. There is m ild chronic anterior wedging of multiple lower thoracic vertebral bodies. IMPRESSION: 1. Lung-RADS category 1: Negative. Continue annual screening with noncontrast low-dose chest CT in 12 months. Reviewed, dictated and finalized at location E. IMPRESSION: 1. Lung-RADS category 1: Negative. Continue annual screening with noncontrast l ow-dose chest CT in 12 months.
== END 2022-12-18 12:57 | disposition home or self-care (01) ==
PROVIDERS: PCP Family Medicine; Visit Provider Physician Assistant
DX: Z12.2 Encounter for screening for malignant neoplasm of respiratory organs (principal); F17.200 Nicotine dependence, unspecified, uncomplicated
CPT/HCPCS: 71271

== ENCOUNTER 2023-05-14 11:08 | Outpatient (CLI) | payer BC, SELFPAY ==
--- NOTE | ~2023-05-14 | XR_ITS ---
Left Shoulder Technique: AP and scapular Y views were obtained. Clinical History: Rotator cuff tear Findings: No fracture or dislocation is seen. Osseous alignment is anatomic. Inferomedial humeral hea d osteophyte present. There is mild AC joint degenerative change.. Soft tissues are unremarkable. Impression: Degenerative changes, as detailed above. Reviewed, dictated and finalized at location M. Impression: Degenerative changes, as detailed above.
== END 2023-05-14 11:09 | disposition home or self-care (01) ==
PROVIDERS: PCP Family Medicine; Visit Provider Orthopaedic Surgery
DX: M12.812 Other specific arthropathies, not elsewhere classified, left shoulder (principal); M75.102 Unspecified rotator cuff tear or rupture of left shoulder, not specified as traumatic
CPT/HCPCS: 73030

== ENCOUNTER 2023-06-20 09:46 | Outpatient (CLI) | payer BC, SELFPAY ==
[2023-06-20 12:09] LABS: MRSA (PCR) NOT DETECTED (NOT DETECTE)
== END 2023-06-20 09:47 | disposition home or self-care (01) ==
LOC: ANHSURGERY 09:49
PROVIDERS: PCP Family Medicine; Visit Provider Orthopaedic Surgery
DX: Z01.818 Encounter for other preprocedural examination (principal); M12.812 Other specific arthropathies, not elsewhere classified, left shoulder; M75.102 Unspecified rotator cuff tear or rupture of left shoulder, not specified as traumatic
CPT/HCPCS: 87641

== ENCOUNTER 2023-07-14 00:16 | Day surgery (SDC) | payer BC, SELFPAY ==
[2023-06-20 10:02] VITALS: BP 158/93; PULSE 64; RESP 16; TEMP 36.6; O2SAT 99; BMI 36.6
--- NOTE | 2023-06-20 10:18 | PC.NURSE ---
Report to the Outpatient Waiting Room, entrance under the green pavilion located off [facility], at time _10:00AM on date ___07/14/23____. Planned Procedure Time: __12:00PM . Time changes happen often and if your time is changed the preop area will call you the afternoon before. - You and your visitor will be asked to self-screen and do not enter if you have any COVID symptoms. - A mask is optional within the hospital at this time. Patients may have clear liquids (water, carbonated beverages, clear teas, apple juice) until 3 hours prior to surgery with a maximum of 20 ounces. - No food from midnight until time of surgery. Take the following medications with a SIP of water the morning of surgery: TRAMADOL NEEDED DO NOT STOP ANY OF YOUR OTHER PRESCRIPTION MEDICATIONS PRIOR TO SURGERY ?EXCEPT THE FOLLOWING Medications to discontinue per physician ____HOLD PIROXICAM (NSAIDS) 7 DAYS PRE-OP PER DR MUHAMMAD-LAST DOSE 07/06/[address] MUHAMMAD IF NECESSARY TO HOLD METHOTREXATE. HOLD ALL VITAMINS/SUPPLEMENTS 3 DAYS PRE-OP PER ANESTHESIA- LAST DOSE 07/10/23. Please no make-up, nail serbian, hairspray, perfume, deodorant, or body powder the day of surgery. No jewelry (including any body piercings) or valuables the day of surgery, leave them at home. Please take a shower or bath the night before, or the morning of, surgery with an antibacterial soap. Wear comfortable, loose fitting clothing. - Jewelry must be removed prior to entering the operating room. Rings and piercings that are not removed may be cut off. - The hospital will not accept responsibility for valuables. - Please leave all valuables, including medications, at home the day of surgery. If you are going home after surgery, a licensed tour driver must drive you home. - NO public transportation without another adult if you receive anesthesia. - We recommend that an adult stay with you for 24 hours following discharge. - We also recommend that you do not drive, make important decision, drink alcoholic beverages, or take any drugs that were not prescribed by your health care provider for at least 24 hours after your discharge time. Follow any additional instructions given to you from your surgeon. If you or anyone in your household have experienced Covid symptoms in the past week, please notify your surgeon or the nurse liaison at the phone number below for possible testing. Telephone instructions given to ___PATIENT and asked if any additional questions and then verbalized understanding. Patient advised to call surgeon office or pre surgery nurse liaison [phone] if any additional questions.
[2023-07-14] VITALS (14 sets, daily range): BP systolic 119–168; BP diastolic 76–102; PULSE 75–103; RESP 12–21; TEMP 35.7–36.6; O2SAT 96–100
--- NOTE | ~2023-07-14 | XR_ITS ---
EXAMINATION: XR shoulder LT min 2V DATE: 07/14/2023 16:02 INDICATION: Reversal total left shoulder arthroplasty. Postop. TECHNIQUE: 2 views of left shoulder were obtained. COMPARISON: Left shoulder radiographs 05/14/2023 FINDINGS: There is a reverse gpac-gzv-kspcci total shoulder arthroplasty in near-anatomic alignment. No fracture. 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 IMPRESSION: 1. Reverse giso-mwe-lrtwvp total left shoulder arthroplasty in near-anatomic alignment. Reviewed, dictated and finalized at location A. IMPRESSION: 1. Reverse dosg-sml-oddvcx total left shoulder arthroplasty in near-anatomic al ignment.
[2023-07-14] MEDS: ACETAMINOPHEN 500 MG TABLET 1000 MG PO (09:59)
[2023-07-14] MEDS: LACTATED RINGERS 1,000 ML 30 ML IV CONT ×2 (10:12→15:39)
--- NOTE | 2023-07-14 12:08 | WPDHPUPDATE1 ---
History and Physical Update Update Date/Time: 07/14/23 12:08 History and Physical has been reviewed, including an updated exam of the patient. There are NO changes in the patient's condition. Risks, benefits, and alternatives have been discussed and questions answered. Patient agrees to proceed with procedure.
[2023-07-14] MEDS: TRANEXAMIC ACID 1,000MG/ISO100 1,000 MG/100 ML BAG 200 MG IVPB (12:54)
[2023-07-14] MEDS: ceFAZolin 2 GM/D5W 50 ML 2 GM/50 ML BAG IVPB ×2 (13:13→21:13)
--- NOTE | 2023-07-14 13:53 | WPDANESEPPF ---
Anes - Initial Pre Proc Eval Procedure: Operation Date: 07/14/23 12:00 Proposed Procedures p Left Reverse Total Shoulder Arthroplasty - Heber Campuzano MD Date/Time: 07/14/23 13:53 Surgeon: Heber Campuzano MD Pre Op Diagnosis: left shoulder rotator cuff arthropathy Patient Data Age: 63 Gender: M Height: 1.8 m Weight: 116.1 kg Last Vital Signs Temp 97.0 F L 07/14/23 10:17 Pulse 75 07/14/23 10:17 Resp 16 07/14/23 10:17 BP 143/90 H 07/14/23 10:34 Pulse Ox 97 07/14/23 10:17 O2 Del Method Room Air 07/14/23 10:17 Allergies Allergy/AdvReac Type Severity Reaction Status Date / Time No Known Allergies Allergy Unknown Verified 07/14/23 09:54 Home Medications Medication Instructions Recorded Confirmed Type folic acid 1 mg tablet 3 mg PO DAILY 01/04/19 07/14/23 History piroxicam 20 mg capsule 20 mg PO DAILY 01/04/19 07/14/23 History tramadol 50 mg tablet 50 mg PO Q6H PRN Pain 01/04/19 07/14/23 History methotrexate 2.5 mg/mL oral 25 mg PO WEEKLY 01/23/21 07/14/23 History solution cholecalciferol (vitamin D3) 50 50 mcg PO DAILY 09/30/22 07/14/23 History mcg (2,000 unit) tablet pantoprazole 40 mg tablet,delayed 40 mg PO QAM #90 tabs 05/22/23 07/14/23 Rx release ramipril 10 mg capsule 10 mg PO QAM 06/20/23 07/14/23 History Laboratory Tests 07/14/23 10:00 Blood Type O Positive Antibody Screen Negative Patient hx anesthesia problems: none Family hx anesthesia problems: none Results Review: All pre-operative results and documents have been reviewed as part of the pre-operative evaluation. ON LICENSE OF [facility] Past Medical History Medical History GERD (gastroesophageal reflux disease) Hypertension Obesity (BMI 30-39.9) Psoriatic arthritis Surgical History Surgical History H/O umbilical hernia repair History of carpal tunnel surgery of right wrist History of incisional hernia repair 02/01/21 Incisional hernia repair with soft polypropylene mesh, bilateral transversus abdominis myofascial flap advancement, 6 cm on the left, 8 cm on the right History of inguinal hernia repair History of total replacement of right shoulder joint Status post laparoscopic-assisted sigmoidectomy with take down splenic flexure; hand sewn colorectal anastomosis repair of urinary bladder fistula 02/18/19 Family History Family History Mother Family history of diabetes mellitus in first degree relative Family history of coronary artery disease Family history of heart disease in male family member before age 55 Sibling Family history of diabetes mellitus in first degree relative Other Cerebrovascular accident Diabetes mellitus Family history of cardiovascular disease Hypertension Social History Social History Social History: Single Smoking packs per day: 1 Smoking cigarettes per day: 20.0 Years smoked: 35 Smoking pack-years: 35.00 Smoking status: Former smoker Tobacco type: cigarettes and e-cigarettes/vaping Second hand tobacco smoke exposure: No Smoking end date: 05/22/22 Additional smoking assessment comments: VAPED 11 YEARS QUIT 2022 Alcohol intake: former Alcohol use details: QUIT 20-30 YRS AGO Substance use: current Substance use type: marijuana Other substance usage details: GUMMIES TO SLEEP Last use: 09/29/22 Lack of Transportation: No Lack of Food: Never True Current Housing: I Have Housing Concerned About Future Housing: No Difficulty Paying Gas/Electric Bills: No Difficulty Paying for Meds: No Currently Unemployed: No Education: High School Diploma/GED Difficulty w/ Childcare or Family Care: No Living arrangements: with family Additional living arrangements comments: [place]
[2023-07-14] MEDS: SODIUM CHLORIDE 0.9% IV 37.7 ML, MORPHINE SULFATE INJ (*CRX) 2 MG, ROPivacaine HCL 1% 2... INFILTRATE (13:57)
[2023-07-14] MEDS: VANCOMYCIN HCL 1,000 MG VIAL 1000 MG TOPICAL (14:58)
--- NOTE | 2023-07-14 15:38 | W.PM.PROC2 ---
Procedure Note - Detailed Date of Procedure 07/14/23 Pre-op Diagnosis left shoulder rotator cuff arthropathy Post-op Diagnosis Same Procedure Performed Reverse total shoulder arthroplasty, left Surgeon Heber Campuzano MD Anesthesia General and Regional (Interscalene block.) Indications Massive Cuff tear with arthropathy. Findings Good bone quality. Massive cuff tear. Subscap repairable. Teres minor intact. No major Cephalic vein present. 5 degree superior augment. Slight anterior inferior correction. Description of Procedure The patient was given an interscalene block in the preoperative area. Preoperative antibiotics were given. The patient was transferred to the operating room and a general anesthetic was administered. The beach chair position was used at 45 degrees. All bony prominences were padded. The head was carefully stabilized on the [facility] golf club head inspector. A sterile prep and drape was performed in the usual manner with ChloraPrep. A longitudinal incision was created at the anterior shoulder just lateral to the deltopectoral interval. Hydrogen peroxide was placed on the incision and then rinsed after one minute. Careful dissection was performed to expose the interval and protect the cephalic vein. The vein was retracted medially. The upper border of the pectoralis was released. Anterior circumflex vessel branches were suture ligated. The biceps was tenodesed. A subscapularis tenotomy was performed. The inferior capsule was released, exposing the humeral head. Osteophytes were removed. Care was taken to stay on bone to protect the axillary nerve. The anatomic head cut was taken with the oscillating saw. The guide pin was placed, central drilling performed, and the broach trial inserted. The neck anteversion and inclination were carefully assessed. The cut protector was placed, and attention was turned to the glenoid. Retractors were placed. Releases were carried out for exposure. The subscapularis was mobilized, the inferior capsule and long head of triceps released, and the superior and middle glenohumeral ligaments released as well. Labral tissue was resected as needed. The sizing template was used to assess the baseplate position low on the glenoid. A guide pin was placed. Minimal reaming was used to accomplish a flat surface without violating the subchondral bone. Version was corrected according to preoperative templating. The boss was drilled, and the real component was impacted into position. Supplemental locking screws were placed centrally, superiorly, and inferiorly. The glenosphere was impacted into the taper. The proximal humerus was reamed for the inset component. The humeral components were trialed. The real humeral stem, tray, and insert were impacted into position. The shoulder was copiously irrigated periodically with pulsatile lavage. The shoulder was reduced and stability confirmed. 1 gram of Vancomycin powder was placed in the joint. The biceps tenodesis was incorporated with the pectoralis tendon repair. The deltopectoral space was reapproximated with number 1 Vicryl. The remaining tissue was closed with 0 Quill and 2-0 Quill running suture and steri-strips. A sterile silver occlusive dressing and shoulder immobilizer were placed. The patient was transferred to the recovery room. Implants Shoulder [employer] reverse TSA size 0 stem. +0 polyethylene insert. 5 deg augmented0 baseplate. 36 + 6 mm glenosphere. Estimated Blood Loss 200 Drains No Pathology None sent Complications No immediate complications Condition Stable Disposition PACU [facility] Billing Surgery - Charge Forward: Surgery Billing
[2023-07-14] MEDS: fentaNYL CITRATE INJ (*CRX) 100 MCG/2 ML VIAL 25 MCG IV PUSH ×7 (15:51→16:57)
--- NOTE | 2023-07-14 17:08 | ADMGEN ---
This patient, Rohit Kate , was admitted to [facility] Surg Room 327-01. Patient/family oriented to hospital policies and general routines including ID bracelet, bed and alarms, visiting hours, pain management, procedures, bathroom and other care routines, personal items, smoking policy, room service/diet, and visiting hours. Information on how to activate the Rapid Response Team has been discussed. Patient/Family are encouraged to report perceived risks to care and to ask questions if they do not understand what they are told or what they should do.
[2023-07-14] MEDS: SENNA/DOCUSATE SODIUM TABLET 2 TAB PO (17:51)
[2023-07-14] MEDS: oxyCODONE/ACETAMINOPHEN (*CRX) 10-325 MG TABLET 1 TAB PO (21:19)
[2023-07-15 00:11] VITALS: BP 129/59; PULSE 70; RESP 16; TEMP 36.5; O2SAT 99
[2023-07-15] MEDS: oxyCODONE/ACETAMINOPHEN (*CRX) 10-325 MG TABLET 1 TAB PO (03:55)
[2023-07-15] MEDS: ceFAZolin 2 GM/D5W 50 ML 2 GM/50 ML BAG IVPB ×2 (04:45→14:10)
[2023-07-15 05:39] VITALS: BP 139/81; PULSE 63; RESP 16; TEMP 36.4; O2SAT 98
[2023-07-15 06:46] LABS: Basophils Percent Auto 0.1 % (0.2-1.2); Hemoglobin 13.3 g/dL (14.0-18.0); Immature Granulocyte Absolute 0.09 K/mm3 (0.00-0.031); Immature Granulocyte Percent A 0.4 % (0-0.5); Lymphocytes Absolute Auto 1.55 K/mm3 (0.9-3.2); Lymphocytes Percent Auto 7.3 % (18.3-44.2); Mean Corpuscular HGB Conc 31.7 g/dl (32-36); Mean Corpuscular Hemoglobin 30.5 pg (26-34); Mean Corpuscular Volume 96.3 fl (80-100); Mean Platelet Volume 10.7 fl (7.4-10.4); Monocytes Absolute Auto 1.4 K/mm3 (0.1-0.6); Monocytes Percent Auto 6.6 % (2.6-8.5); Neutrophils Absolute Auto 18.3 K/mm3 (1.3-6.7); Neutrophils Percent Auto 85.6 % (45.5-73.1); Platelet Count Result 329 k/mm3 (150-375); Red Blood Count 4.36 M/mm3 (4.6-6.20); Red Cell Distribution Width 13.6 % (11.5-14.5); White Blood Count 21.4 K/mm3 (4.5-10.0)
[2023-07-15 06:50] LABS: Anion Gap 5 mmol/L (4-12); Blood Urea Nitrogen 22 mg/dL (9-20); Calcium 8.8 mg/dL (8.4-10.2); Carbon Dioxide 23 mmol/L (22-30); Chloride 105 mmol/L (98-107); Estimated CRCL calculation 96 ml/min; Estimated Glomerular Filt Rate > 60; Glucose 113 mg/dL (65-110); Potassium 4.4 mmol/L (3.4-5.0); Sodium 133 mmol/L (137-145)
[2023-07-15] MEDS: FOLIC ACID 1 MG TABLET 3 MG PO (08:27)
[2023-07-15] MEDS: CHOLECALCIFEROL 1,000 UNITS TABLET 2000 UNITS PO (08:27)
[2023-07-15] MEDS: PANTOPRAZOLE 40 MG TABLET PO (08:28)
[2023-07-15] MEDS: polyethylene glycoL 3350 17 GM POWD.PACK PO (08:28)
[2023-07-15] MEDS: PIROXICAM 10 MG CAPSULE 20 MG PO (08:28)
[2023-07-15] MEDS: SENNA/DOCUSATE SODIUM TABLET 2 TAB PO (08:28)
[2023-07-15] MEDS: oxyCODONE/ACETAMINOPHEN (*CRX) 5-325 MG TABLET 1 TABLET PO (08:32)
[2023-07-15] MEDS: ramipriL 5 MG CAPSULE 10 MG PO (08:36)
--- NOTE | 2023-07-15 10:34 | P.PNAN_ITS ---
Anes - Prog Note Post-Op Date/Time: 07/15/23 10:34 Cardiovascular status: normal Respiratory status: normal Airway patency: baseline Mental status: baseline Post-Op hydration status: normal Vital Signs: Last Vital Signs Temp 36.4 C L 07/15/23 05:39 Pulse 63 07/15/23 05:39 Resp 16 07/15/23 05:39 BP 139/81 07/15/23 05:39 Pulse Ox 98 07/15/23 05:39 O2 Del Method Room Air 07/15/23 07:51 O2 Flow Rate 8 07/14/23 15:54 Pain Score (VAS): 04/05 I/O: Intake & Output 07/14/23 07/15/23 07/15/23 23:59 07:59 15:59 Intake Total 1040 550 240 Balance 1040 550 240 Laboratory Tests 07/15/23 05:55 07/15/23 05:55 07/14/23 07/15/23 10:00 05:55 WBC 21.4 H RBC 4.36 L Hgb 13.3 L Hct 42.0 MCV 96.3 MCH 30.5 MCHC 31.7 L RDW 13.6 Plt Count 329 MPV 10.7 H Immature Gran % (Auto) 0.4 Neut % (Auto) 85.6 H Lymph % (Auto) 7.3 L Doddridge % (Auto) 6.6 Eos % (Auto) 0.0 Baso % (Auto) 0.1 L Lymph # (Auto) 1.55 Doddridge # (Auto) 1.4 H Eos # (Auto) 0.0 Baso # (Auto) 0.0 Abs Immat Gran (auto) 0.09 H Absolute Neuts (auto) 18.3 H Absolute Nucleated RBC 0.000 Nucleated RBC % 0.0 Sodium 133 L Potassium 4.4 Chloride 105 Carbon Dioxide 23 Anion Gap 5 BUN 22 H D Creatinine 0.90 Estim Creat Clear Calc 96 Estimated GFR > 60 Glucose 113 H Calcium 8.8 Blood Type O Positive Antibody Screen Negative Post-procedural complaints: none Patient Feedback: Patient satisfied with anesthetic care.
[2023-07-15 14:34] VITALS: BP 132/80; PULSE 65; RESP 16; TEMP 36.3; O2SAT 97
== END 2023-07-15 15:10 | disposition home or self-care (01) ==
LOC: ANHSURGERY 09:36 → ANH3MEDSUR 17:01
PROVIDERS: PCP Family Medicine; Visit Provider Orthopaedic Surgery
PROC: (CPT 23472; principal; 2023-07-14 12:00)
DX: M75.102 Unspecified rotator cuff tear or rupture of left shoulder, not specified as traumatic (principal); M12.812 Other specific arthropathies, not elsewhere classified, left shoulder; I10 Essential (primary) hypertension; K21.9 Gastro-esophageal reflux disease without esophagitis; L40.50 Arthropathic psoriasis, unspecified; E66.9 Obesity, unspecified; Z68.35 Body mass index [BMI] 35.0-35.9, adult; Z90.49 Acquired absence of other specified parts of digestive tract; Z98.0 Intestinal bypass and anastomosis status; Z87.891 Personal history of nicotine dependence; F12.90 Cannabis use, unspecified, uncomplicated
CPT/HCPCS: 23472; 36415; 73030; 80048; 85025; 86850; 86900; 86901; 97110; 97161; 97165; 97530; 97535; A4565; A9270; C1776; J0171; J0330; J0360; J0690; J1100; J1170; J1885; J2250; J2270; J2405; J2704; J2795; J3010; J3370; J7120

== ENCOUNTER 2023-08-29 10:31 | Outpatient (CLI) | payer BC, SELFPAY ==
--- NOTE | ~2023-08-29 | XR_ITS ---
XR shoulder LT min 2V Ordering provider: Heber Campuzano MD History: . Z47.89 - Encounter for other orthopedic aftercare . Comparison: July 14, 2023 FINDINGS: BONES: No acute fracture or dislocation. JOINT SPACES: The acromioclavicular joint is normal. Left shoulder arthroplasty. SOFT TISSUES: Normal. IMPRESSION: No acute osseous abnormality left shoulder. Reviewed, dictated and finalized at location A.
== END 2023-08-29 10:32 | disposition home or self-care (01) ==
PROVIDERS: PCP Family Medicine; Visit Provider Orthopaedic Surgery
DX: Z47.89 Encounter for other orthopedic aftercare (principal)
CPT/HCPCS: 73030

== ENCOUNTER 2023-09-11 11:31 | Outpatient (CLI) | payer BC, SELFPAY ==
--- NOTE | ~2023-09-11 | XR_ITS ---
XR sacroiliac joints min 3V 09/11/2023 11:48 Indication: Low back pain. Procedure: 3 view sacroiliac joints Comparison: No prior studies for comparison. Findings: There is lower lumbar spondylosis. Sacroiliac joints are symmetric without significant dege nerative change, erosion or ankylosis. Pelvic rings are intact. Mild osteoarthritis of the hips. Impression: 1: No significant abnormality of the sacroiliac joints. Reviewed, dictated and finalized at location B. Impression: 1: No significant abnormality of the sacroiliac joints.
== END 2023-09-11 11:32 ==
PROVIDERS: PCP Family Medicine
DX: M54.9 Dorsalgia, unspecified (principal)
CPT/HCPCS: 72202

== ENCOUNTER 2023-12-31 07:37 | Outpatient (CLI) | payer BC, SELFPAY ==
--- NOTE | ~2023-12-31 | XR_ITS ---
XR shoulder LT min 2V 12/31/2023 07:56 Indication: Left shoulder joint pain Procedure: 4 views left shoulder Comparison: Comparison to multiple prior studies sequentially, with oldest reviewed study dated 06/2023. Findings: There is a left total shoulder plasty. No fracture or traumatic malalignment. Mild osteoart hritis of the acromioclavicular joint. Impression: 1: No acute bone or joint abnormality. Reviewed, dictated and finalized at location B. ETING TEACHER Impression: 1: No acute bone or joint abnormality.
== END 2023-12-31 07:38 | disposition home or self-care (01) ==
PROVIDERS: PCP Family Medicine; Visit Provider Orthopaedic Surgery
DX: Z96.612 Presence of left artificial shoulder joint (principal)
CPT/HCPCS: 73030

== ENCOUNTER 2024-05-20 14:41 | Outpatient (CLI) | payer BC, SELFPAY ==
--- NOTE | ~2024-05-20 | CT_ITS ---
EXAMINATION: CT lung screening DATE: 05/20/2024 15:14 INDICATION: Nicotine dependence TECHNIQUE: Computed tomography (CT) of the chest was performed without intravenous contrast. The dose -length product was 325.32 mGy-cm. Automated exposure control and iterative reconstruction technique were employed. COMPARISON: Comparison to multiple prior studies sequentially, with oldest reviewed study dated 11/25. FINDINGS: There is gallstones. Small hiatal hernia. Heart size normal. There is atherosclerosis. No s ignificant pleural or pericardial effusion. Partially visualized low-density lesion in the right kidn ey at the lower pole consistent with 2.2 cm cyst. There are calcified right lung nodules and right hi lar and mediastinal lymph nodes, consistent with chronic granulomatous disease. No focal airspace dis ease. There is a 2 mm nodule in the right upper lobe, likely benign. There is 2 mm nodule in the left upper lobe, unchanged. No new pulmonary nodules or masses. IMPRESSION: 1. Lung-RADS category 2: Benign appearance or behavior. Continue annual screening with noncontrast lo w-dose chest CT in 12 months. Reviewed, dictated and finalized at location A. IMPRESSION: 1. Lung-RADS category 2: Benign appearance or behavior. Continue annual screeni ng with noncontrast low-dose chest CT in 12 months.
--- OUTSIDE RECORDS SUMMARY | 2024-05-20 15:34 | XMS_ITS | Encounter Summary ---
Author Organization [employer] Address 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
--- OUTSIDE RECORDS SUMMARY | 2024-05-20 15:34 | XMS_ITS | Encounter Summary ---
Author Organization [employer] Address 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
--- OUTSIDE RECORDS SUMMARY | 2024-05-20 15:34 | XMS_ITS ---
Author Organization [facility] Address [address] [place], [place] [id number] Care Team Providers Care Build And Release Manager Name Role Phone MARCOS WILL Primary Care Provider Elijah Hernandez Unavailable [phone] KAYLEIGH MONDRAGON Unavailable [phone] MEDICATIONS Medication SIG (Take, Route, Frequency, Duration) Notes Start Date End Date Status TraMADol Hydrochloride 50 mg 2 TAB orall y 3 times a day as needed for 30 days [facility] 02/11/2024 Active Encounters Encounter Location Date Provider Diagnosis [facility] [address] [place], [place] [id number] 02/11/2024 Elijah Blanc Psoriatic arthritis L40.50 ASSESSMENTS Encounter Date Diagnosis Assessment Notes Treatment Notes Treatment Clinical Notes 02/11/2024 Psoriatic arthritis (ICD-10 - L40.50) PLAN OF TREATMENT Medication Medication Name Sig Start Date Stop Date Notes TraMADol Hydrochloride 50 mg 2 TAB orall y 3 times a day as needed for 30 days 02/11/2024 [facility] Next Appt Details Provider Name:Paola subramanian, 08/05/2024 09:00:00 AM, [address], [address], [place], [place], [phone],
--- OUTSIDE RECORDS SUMMARY | 2024-05-20 15:34 | XMS_ITS | Encounter Summary ---
Author Organization [facility] Address 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 Gender Identity Not on file Sexual Orientation Not on file documented as of this encounter Plan of Treatment Not on file documented as of this encounter Procedures Procedure Name Priority Date/Time Associated Diagnosis Comments XR FOOT 3+ VW LEFT Routine 07/24/2008 7: 28 PM CDT documented in this encounter Results * XR FOOT 3+ VW LEFT (07/24/2008 7:28 PM CDT) Anatomical Region Laterality Modality Ankle / Foot Other 07/24/2008 7:28 PM CDT Narrative 07/24/2008 10:23 PM CDT [facility] [place] [address] [place], [place] [address] Admit Date: 07/24/2008 [facility]OHIT WE[facility] Sex: M Admit Prov: JUHI ROWE Date: 1960 Primary Care Prov: NORRIS DAUGHERTY CMRN: [id number] Room: [facility] SSN: [id number] IMAGING SERVICES Ordering Prov: N/A Accession Number: [id number] Interpretation LEFT FOOT, 3 VIEWS, 07/24/2008 History: Foot pain. Findings: Degenerative changes are noted at the base of the fifth metatarsal, possibly consistent with healed fracture. There is no acute fracture, dislocation or abnormal bone destruction. Two less-than-1 mm metallic foreign bodies are noted in the soft tissues in the region of the fifth metatarsal. IMPRESSION: No acute abnormality. . Dictated by: ANGEL GEORGES 07/24/2008 19:41 Electronically signed by: ANGEL GEORGES 07/24/2008 22:22 Transcribed: 07/24/2008 20:55 SJ Procedure Note Angel Georges MD - 07/24/2008 [facility] [address] [place], [place] [address] Admit Date: 07/24/2008 ROHIT WEST Sex: M Admit Prov: JUHI ROWE Date: 1960 Primary Care Prov: WILLOW NORRIS CMRN: [id number] [id number] Ordering Prov: N/A Interpretation LEFT FOOT, 3 VIEWS, 07/24/2008 History: Foot pain. Findings: Degenerative changes are noted at the base of the fifth metatarsal, possibly consistent with healed fracture. There is noacute fracture, dislocation or abnormal bone destruction. Two [id number] metallic foreign bodies are noted in the soft tissues in the regionof the fifth metatarsal. IMPRESSION: No acute abnormality. . Dictated by: ANGEL GEORGES 07/24/2008 19:41 Electronically signed by: ANGEL GEORGES 07/24/2008 22:22 Transcribed: 07/24/2008 20:55 SJ us Juhi Rowe MD DIAGNOSTIC IMAGING ORDERABLE S Final Result documented in this encounter Visit Diagnoses Not on filedocumented in this encounter Care Teams Director Of Career Services Relationship Specialty Start Date End Date Diego Fernandez DO PCP - General 03/18/09 documented as of this encounter
--- OUTSIDE RECORDS SUMMARY | 2024-05-20 15:35 | XMS_ITS | Encounter Summary ---
Author Organization [employer] Address 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 Name Role Phone Maria De Jesus Fernandez Primary Care Provider Encounter Details Date Type Department Care Team (Late st Contact Info) Description 08/30/2007 Outpatient Historical [facility] Er, Authorized P [place] [id number] [facility] [address] [place] [address] Billy Goldman MD NO ADDRESS ON FILE Social History Tobacco Use Types Packs/Day Years Used Date Smoking Tobacco: Never Assessed Sex and Gender Information Value Date Recorded Sex Assigned at Not on file 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 Gender Identity Not on file Sexual Orientation Not on file documented as of this encounter Plan of Treatment Not on file documented as of this encounter Procedures Procedure Name Priority Date/Time Associated Diagnosis Comments CBC WITH DIFFERENTIAL Routine 09/02/2007 5:45 AM CDT C-REACTIVE PROTEIN Routine 09/02/2007 5: 45 AM CDT BASIC METABOLIC PANEL Routine 09/02/2007 5:45 AM CDT XR HAND 3+ VW RIGHT Routine 09/01/2007 7 :53 PM CDT XR HAND 3+ VW LEFT Routine 09/01/2007 7: 53 PM CDT XR WRIST 3+ VW RIGHT Routine 09/01/2007 7:53 PM CDT XR WRIST 3+ VW LEFT Routine 09/01/2007 7 :53 PM CDT XR SACROILIAC JOINTS 3+ VW Routine 09/01/2007 7:53 PM CDT URINALYSIS WITH REFLEX CULTURE Timed Study 09/01/2007 7:35 PM CDT URINALYSIS W/REFLEX MICROSCOPIC Timed Study 09/01/2007 7:35 PM CDT HLA B27 Routine 09/01/2007 6:08 PM CDT HEPATITIS B SURFACE ANTIGEN Routine 09/01/2007 6:08 PM CDT HEPATITIS C ANTIBODY Routine 09/01/2007 6:08 PM CDT LIGIA SCREEN W/REFLEX Routine 09/01/2007 6 :08 PM CDT T4 TOTAL Routine 09/01/2007 3:12 PM CDT CYCLIC CITRULLINATED PEPTIDE AB IGG Routine 09/01/2007 3:12 PM CDT ALDOLASE Routine 09/01/2007 3:12 PM CDT T3 Routine 09/01/2007 3:12 PM CDT CREATININE Routine 09/01/2007 3:12 PM CDT CK Routine 09/01/2007 3:12 PM CDT MRI CERV THOR W WO CONT Routine 09/01/2007 11:04 AM CDT CBC WITH DIFFERENTIAL Routine 09/01/2007 4:47 AM CDT SEDIMENTATION RATE Routine 09/01/2007 4: 47 AM CDT RHEUMATOID FACTOR Routine 09/01/2007 4:4 7 AM CDT C-REACTIVE PROTEIN Routine 09/01/2007 4: 47 AM CDT LIGIA SCREEN W/REFLEX Routine 09/01/2007 4 :47 AM CDT TSH Routine 09/01/2007 4:47 AM CDT COMPREHENSIVE METABOLIC PANEL Routine 09/01/2007 4:47 AM CDT NASAL CULTURE Routine 08/31/2007 6:56 PM CDT BLOOD CULTURE Stat 08/31/2007 4:30 PM CDT BLOOD CULTURE Stat 08/31/2007 4:25 PM CDT XR HAND 3+ VW LEFT Routine 08/31/2007 4: 15 PM CDT US DUPLEX ARTERIAL LEGS BILATERAL Routine 08/31/2007 2:51 PM CDT MRI CERVICAL W WO CONTRAST Timed Study 08/31/2007 11:[address] CERVICAL SPINE WO CONTRAST Routine 08/31/2007 2:27 AM CDT CBC WITH DIFFERENTIAL Stat 08/31/2007 2:24 AM CDT C-REACTIVE PROTEIN Stat 08/31/2007 2: 24 AM CDT COMPREHENSIVE METABOLIC PANEL Stat 08/31/2007 2:24 AM CDT documented in this encounter Results * (ABNORMAL) BASIC METABOLIC PANEL (09/02/2007 5:45 AM CDT) BUN 12 6 - 20 mg/dL [facility] CHLORIDE 101 96 - 108 mmol/L [facility] GLUCOSE 114(H) 65 - 99 mg/dL [facility] CALCIUM 8.4 8.4 - 10.2 mg/dL [facility] CO2 26 22 - 30 mmol/L [facility] CREATININE 0.65(L) 0.67 - 1.17 mg/dL [facility] SODIUM 134(L) 135 - 145 mmol/L [facility] POTASSIUM 4.4 3.5 - 4.9 mmol/L [facility] GFR, >60 >=60 mL/min/1. 7 sq meter [facility] GFR >60 >=60 mL/min/1. 7 sq meter [facility] Comment: Modification of Diet in Renal Disease (MDRD) study formula. Estimated GFR rate interpretative information for both Americans and non- Americans is available on the [facility] Intranet at: [email or web address] Select: Lab Policies and Procedures Select: Reference Ranges - GFR Blood specimen (specimen) 09/02/2007 5:45 AM CDT 09/02/2007 6:27 AM CDT Ant Smart MD CHEMISTRY ORDERABLES Edited Performing Organization Address City/[facility] Co de Phone Number [facility] CLIA# [id number] [address] [place] [address] * (ABNORMAL) C-REACTIVE PROTEIN (09/02/2007 5:45 AM CDT) CRP 10.9(H) 0.0 - 0.8 mg/dL [facility] Blood specimen (specimen) 09/02/2007 5:45 AM CDT 09/02/2007 6:27 AM CDT Ant Smart MD CHEMISTRY ORDERABLES Final R esult Performing Organization Address City/[facility]/ZIP Co de Phone Number [facility] CLIA# [id number] [address] [place] [address] * (ABNORMAL) CBC WITH DIFFERENTIAL (09/02/2007 5:45 AM CDT) HEMATOCRIT 33.0(L) 40.0 - 48.0 % [facility] RDW-STDEV 43.8 37.1 - 48.7 fL [facility] RBC 3.77(L) 4.50 - 5.40 M/uL [facility] MCHC 32.4 31.5 - 35.5 % [facility] MCV 87.5 82.0 - 99.0 fL [facility] PLATELETS 460(H) 140 - 350 K/uL [facility] HEMOGLOBIN 10.7(L) 13.6 - 16.5 g/dL [facility] RDW 13.6 11.5 - 14.5 % [facility] WBC 10.8(H) 4.0 - 9.8 K/uL [facility] MCH 28.4 27.2 - 32.6 pg [facility] MPV 9.9 9.3 - 12.4 fL [facility] BASOPHILS 0 0 - 2 % [facility] BASOPHILS ABSOLUTE 0.01 0.00 - 0.20 K/uL [facility] MONOCYTES 5 3 - 13 % [facility] MONOCYTE ABSOLUTE 0.52 0.10 - 1.30 K/uL [facility] NEUTROPHILS 75(H) 45 - 70 % [facility] NEUTROPHIL ABSOLUTE 8.06(H) 1.90 - 7.00 K/uL [facility] EOSINOPHILS 1 0 - 7 % [facility] EOSINOPHIL ABSOLUTE 0.06 0.00 - 0.70 K/uL [facility] LYMPHOCYTES 20 16 - 45 % [facility] LYMPHOCYTE ABSOLUTE 2.11 0.70 - 4.50 K/uL [facility] Blood specimen (specimen) 09/02/2007 5:45 AM CDT 09/02/2007 6:27 AM CDT Ant Smart MD HEMATOLOGY ORDERABLES Edited INTERFACE SYSTEM Refer to clinic/hospital department [facility] CLIA# [id number] [address] [facility] [place] [address] * XR HAND 3+ VW RIGHT (09/01/2007 7:53 PM CDT) Anatomical Region Laterality Modality Wrist / Hand Other 09/01/2007 7:53 PM CDT Narrative 09/02/2007 9:40 AM CDT [place] [address] [place], [place] [address] Admit Date: 08/31/2007 ANUP WEST Sex: M Admit Prov: KAYLEIGH MONDRAGON Date: 1960 Primary Care Prov: NORRIS DAUGHERTY CMRN: [id number] Room: [address] [place] [address] SSN: [id number] IMAGING SERVICES Ordering Prov: N/A Accession Number: [id number] Interpretation RIGHT HAND 3 VIEWS 09/01/07 Clinical History: Weakness and numbness. Findings: There is no fracture, dislocation or bony destructive lesion. Impression: Negative. . Dictated by: CHUCKIE MURRY 09/02/2007 08:36 Electronically signed by: CHUCKIE MURRY 09/02/2007 09:38 Transcribed: 09/02/2007 09:20 Procedure Note Chuckie Murry MD - 09/02/2007 [place] [address] [place], [place] [address] Admit Date: 08/31/2007 [facility]UP WEST Sex: M Admit Prov: KAYLEIGH MONDRAGON Date: 1960 Primary Care Prov: NORRIS DAUGHERTY CMRN: [id number] Room: [address] [place] [place] [address] 2 SSN: [id number] IMAGING SERVICES Ordering Prov: N/A Interpretation RIGHT HAND 3 VIEWS 09/01/07 Clinical History: Weakness and numbness. Findings: There is no fracture, dislocation or bony destructivelesion. Impression: Negative. . Dictated by: CHUCKIE MURRY 09/02/2007 08:36 Electronically signed by: CHUCKIE MURRY 09/02/2007 09:38 Transcribed: 09/02/2007 09:20 Seymour Barclay MD DIAGNOSTIC IMAGING ORDERAB LES Final Result * XR HAND 3+ VW LEFT (09/01/2007 7:53 PM CDT) Anatomical Region Laterality Modality Wrist / Hand Other 09/01/2007 7:53 PM CDT Narrative 09/01/2007 8:36 PM CDT [place] [address] [place], [place] [address] Admit Date: 08/31/2007 [facility]UP [facility] Sex: M Admit Prov: KAYLEIGH MONDRAGON Date: 1960 Primary Care Prov: NORRIS DAUGHERTY CMRN: [id number] Room: [address] [place] [address] SSN: [id number] IMAGING SERVICES Ordering Prov: N/A Accession Number: [id number] Interpretation Exam: Left hand 3 views. 09/01/2007 History: Left hand pain. No fracture, dislocation, or acute bone abnormality of the left hand is seen. No aggressive bone lesion is seen. There is a small foreign body adjacent to the distal aspect of the left fifth metacarpal medially. Impression: Small radiopaque foreign body in the medial left hand near the distal left fifth metacarpal. No fracture or acute bone abnormality of the left hand is seen. . Dictated by: MARIA DE JESUS SALAS 09/01/2007 20:13 Electronically signed by: MARIA DE JESUS SALAS 09/01/2007 20:34 Transcribed: 09/01/2007 20:21 AMK Procedure Note Maria De Jesus Salas - 09/01/2007 [facility] [address] [place], [place] [address] Admit Date: 08/31/2007 ANUP WEST Sex: M Admit Prov: KAYLEIGH MONDRAGON Date: 1960 Primary Care Prov: NORRIS DAUGHERTY CMRN: [id number] Room: [address] [place] [address] SSN: [id number] IMAGING SERVICES Ordering Prov: N/A Interpretation Exam: Left hand 3 views. 09/01/2007 History: Left hand pain. No fracture, dislocation, or acute bone abnormality of the left handis seen. No aggressive bone lesion is seen. There is a small foreignbody adjacent to the distal aspect of the left fifth metacarpalmedially. Impression: Small radiopaque foreign body in the medial left hand near the distalleft fifth metacarpal. No fracture or acute bone abnormality of the left hand is seen. . Dictated by: MARIA DE JESUS SALAS 09/01/2007 20:13 Electronically signed by: MARIA DE JESUS SALAS 09/01/2007 20:34 Transcribed: 09/01/2007 20:21 AMK Seymour Barclay MD DIAGNOSTIC IMAGING ORDERAB LES Final Result * XR WRIST 3+ VW RIGHT (09/01/2007 7:53 PM CDT) Anatomical Region Laterality Modality Wrist / Hand Other 09/01/2007 7:53 PM CDT Narrative 09/01/2007 8:36 PM CDT [facility] [address] [place], [place] [address] Admit Date: 08/31/2007 [facility] Sex: M Admit Prov: KAYLEIGH MONDARGON Date: 1960 Primary Care Prov: NORRIS DAUGHERTY CMRN: [id number] Room: [address] [place] [address] 2 SSN: [id number] IMAGING SERVICES Ordering Prov: N/A Accession Number: [id number] Interpretation Exam: Right wrist 4 views 09/01/2007 History: Right wrist pain. Findings: No fracture, dislocation, focal bone production or destruction is identified. Impression: Negative. . Dictated by: MARIA DE JESUS SALAS 09/01/2007 20:12 Electronically signed by: MARIA DE JESUS SALAS 09/01/2007 20:34 Transcribed: 09/01/2007 20:20 AMK Procedure Note Maria De Jesus Salas - 09/01/2007 [place] [address] [place], [place] [address] Admit Date: 08/31/2007 [facility] Sex: M Admit Prov: MONDRAGON KAYLEIGH Lauryn Date: 1960 Primary Care Prov: NORRIS DAUGHERTY CMRN: [id number] Room: [address] [place] [address] SSN: [id number] IMAGING SERVICES Ordering Prov: N/A Interpretation Exam: Right wrist 4 views 09/01/2007 History: Right wrist pain. Findings: No fracture, dislocation, focal bone production ordestruction is identified. Impression: Negative. . Dictated by: MARIA DE JESUS SALAS 09/01/2007 20:12 Electronically signed by: MARIA DE JESUS SALAS 09/01/2007 20:34 Transcribed: 09/01/2007 20:20 AMK Seymour Barclay MD DIAGNOSTIC IMAGING ORDERAB LES Final Result * XR WRIST 3+ VW LEFT (09/01/2007 7:53 PM CDT) Anatomical Region Laterality Modality Wrist / Hand Other 09/01/2007 7:53 PM CDT Narrative 09/01/2007 8:36 PM CDT [place] [address] [place], [place] [address] Admit Date: 08/31/2007 [facility] Sex: M Admit Prov: KAYLEIGH MONDRAGON Lauryn Date: 1960 Primary Care Prov: WILLOW NORRIS CMRN: [id number] Room: [address] [place] [address] SSN: [id number] IMAGING SERVICES Ordering Prov: N/A Accession Number: [id number] Interpretation Exam: Left wrist 4 views 09/01/2007 History: Left wrist pain. Findings: No fracture, dislocation, focal bone production or destruction is identified. Impression: Negative. . Dictated by: MARIA DE JESUS SALAS 09/01/2007 20:11 Electronically signed by: MARIA DE JESUS SALAS 09/01/2007 20:34 Transcribed: 09/01/2007 20:20 AMK Procedure Note Maria De Jesus Salas - 09/01/[address] [address] Admit Date: 08/31/2007 JENNAANUP Das Sex: M Admit Prov: KAYLEIGH MONDRAGON Date: 1960 Primary Care Prov: NORRIS DAUGHERTY CMRN: [id number] Room: [address] [place] [address] SSN: [id number] IMAGING SERVICES Ordering Prov: N/A Interpretation Exam: Left wrist 4 views 09/01/2007 History: Left wrist pain. Findings: No fracture, dislocation, focal bone production ordestruction is identified. Impression: Negative. . Dictated by: MARIA DE JESUS SALAS 09/01/2007 20:11 Electronically signed by: MARIA DE JESUS SALAS 09/01/2007 20:34 Transcribed: 09/01/2007 20:20 AMK Seymour Barclay MD DIAGNOSTIC IMAGING ORDERAB LES Final Result * XR SACROILIAC JOINTS 3+ VW (09/01/2007 7:53 PM CDT) Anatomical Region Laterality Modality Pelvis Other 09/01/2007 7:53 PM CDT Narrative 09/02/2007 9:40 AM CDT [address] [address] Admit Date: 08/31/2007 JENNAANUP Sex: M Admit Prov: KAYLEIGH MONDRAGON Date: 1960 Primary Care Prov: NORRIS DAUGHERTY CMRN: [id number] Room: [address] [place] [address] SSN: [id number] IMAGING SERVICES Ordering Prov: N/A Accession Number: [id number] Interpretation Sacroiliac joints 3 views 09/01/2007 History: Pain. Findings: There is no fracture, dislocation or bony destructive lesion. The sacroiliac joints appear normal. The femoral heads and acetabuli are within normal limits. Impression: Negative. . Dictated by: CHUCKIE MURRY 09/02/2007 08:37 Electronically signed by: CHUCKIE MURRY 09/02/2007 09:38 Transcribed: 09/02/2007 08:39 AMK Procedure Note Chuckie Murry MD - 09/02/[address] [address] Admit Date: 08/31/2007 ANUP WEST Sex: M Admit Prov: KAYLEIGH MONDRAGON Date: 1960 Primary Care Prov: WILLOW NORRIS CMRN: [id number] Room: [address] [place] [address] SSN: [id number] IMAGING SERVICES Ordering Prov: N/A Interpretation Sacroiliac joints 3 views 09/01/2007 History: Pain. Findings: There is no fracture, dislocation or bony destructivelesion. The sacroiliac joints appear normal. The femoral heads and acetabuli arewithin normal limits. Impression: Negative. . Dictated by: CHUCKIE MURRY 09/02/2007 08:37 Electronically signed by: CHUCKIE MURRY 09/02/2007 09:38 Transcribed: 09/02/2007 08:39 AMK Seymour Barclay MD DIAGNOSTIC IMAGING ORDERAB LES Final Result * URINALYSIS (09/01/2007 7:35 PM CDT) CLARITY UA Clear Clear [facility] PROTEIN UA Negative Negative [facility] BILIRUBIN UA Negative Negative [facility] LEUKOCYTE ESTERASE UA Negative Negative [facility] SPECIFIC GRAVITY UA 1.002 1.001 - 1.035 [facility] BLOOD UA Negative Negative [facility] GLUCOSE UA Negative Negative [facility] COLOR UA Pale Yellow [facility] NITRITE UA Negative Negative [facility] UROBILINOGEN UA <1 <=1 mg/dL [facility] PH UA 5.0 5.0 - 8.0 [facility] KETONES UA Negative Negative [facility] 09/01/2007 7:35 PM CDT 09/01/2007 7:40 PM CDT Norris Pulido MD URINE ORDERABLES Final Result Performing Organization Address [facility] Co de Phone Number [facility] CLIA# [id number] [address] [place] [address] * URINALYSIS WITH REFLEX CULTURE (09/01/2007 7:35 PM CDT) URINE CULTURE ORDER Not indicated [facility] Comment: Criteria for a reflex culture include one or more of the following: Abnormal nitrite, leukocyte esterase, WBCs or RBCs. Lack of qualifying criteria does not exclude the possiblity of a urinary tract infection. Dilute urine, drug interference, etc. may decrease the sensitivity of the criteria analytes. Urine specimen (specimen) 09/01/2007 7:35 PM CDT 09/01/2007 7:40 PM CDT Norris Pulido MD URINE ORDERABLES Final Result Performing Organization Address City/[facility]/ZIP Co de Phone Number [facility] CLIA# [id number] [address] [place] [address] * (ABNORMAL) HLA B27 (09/01/2007 6:08 PM CDT) HLA B27 DETECTED(A ) [facility] Comment: THE HLA B27 ANTIGEN IS PRESENT IN 9% OF AND 4% OF BLACK POPULATIONS. THIS ANTIGEN IS SEEN WITH A FREQUENCY OF 90% IN PATIENTS WITH ANKYLOSING SPONDYLITIS AND A FREQUENCY OF 80% IN PATIENTS WITH REITERS DISEASE. Lab test performed by: [employer] [address] [address] ANUP PAYNE MD Blood specimen (specimen) 09/01/2007 6:08 PM CDT 09/01/2007 6:13 PM CDT Seymour Barclay MD CHEMISTRY ORDERABLES Final Result Performing Organization Address [facility] de Phone Number [facility] CLIA# [id number] [address] [facility] [address] * HEPATITIS C ANTIBODY (09/01/2007 6:08 PM CDT) HEPATITIS C AB NON-REACT ADIS NON-REACT ADIS [facility] SIGNAL TO CUT OFF 0.08 <1.00 [facility] Comment: Lab test performed by: [employer] [address] ANUP PAYNE MD Blood specimen (specimen) 09/01/2007 6:08 PM CDT 09/01/2007 6:13 PM CDT Seymour Barclay MD CHEMISTRY ORDERABLES Final Result Performing Organization Address [facility] de Phone Number [facility] CLIA# [id number] [address] [facility] [place] [address] * HEPATITIS B SURFACE ANTIGEN (09/01/2007 6:08 PM CDT) HEPATITIS B SURFACE AG NON-REACT ADIS NON-REACT ADIS [facility] Comment: Lab test performed by: [employer] [address] ANUP PAYNE MD Blood specimen (specimen) 09/01/2007 6:08 PM CDT 09/01/2007 6:13 PM CDT Seymour Barclay MD CHEMISTRY ORDERABLES Final Result Performing Organization Address City/[facility] Co de Phone Number [facility] CLIA# [id number] [address] [facility] [place] [address] * LIGIA (09/01/2007 6:08 PM CDT) LIGIA SCREEN NEGATIVE NEGATIVE [facility] Comment: Lab test performed by: [employer] [place] [place] [address] ANUP PAYNE MD Blood specimen (specimen) 09/01/2007 6:08 PM CDT 09/01/2007 6:13 PM CDT Result [facility] Seymour Barclay MD CHEMISTRY ORDERABLES Final Result Performing Organization Address [facility] de Phone Number [facility] CLIA# [id number] [address] [facility] [address] [place] [address] * CREATININE (09/01/2007 3:12 PM CDT) [facility] CREATININE 0.70 0.67 - 1.17 mg/dL [facility] GFR, >60 >=60 mL/min/1.7 sq meter [facility] GFR >60 >=60 mL/min/1.7 sq meter [facility] Comment: Modification of Diet in Renal Disease (MDRD) study formula. Estimated GFR rate interpretative information for both Americans and non- Americans is available on the [facility] Intranet at: [email or web address] Select: Lab Policies and Procedures Select: Reference Ranges - GFR Blood specimen (specimen) 09/01/2007 3:12 PM CDT 09/01/2007 3:19 PM CDT Result [facility] Ant Smart MD CHEMISTRY ORDERABLES Edited Performing Organization Address [facility] Co de Phone Number [facility] CLIA# [id number] [address] [place] [address] * CK (09/01/2007 3:12 PM CDT) Pathologist [facility] CK 121 10 - 170 U/L [facility] Blood specimen (specimen) 09/01/2007 3:12 PM CDT 09/01/2007 3:19 PM CDT Ant Smart MD CHEMISTRY ORDERABLES Final R esult Performing Organization Address [facility] Co de Phone Number [facility] CLIA# [id number] [address] [place] [address] * T3 (09/01/2007 3:12 PM CDT) Pathologist [facility] T3 128 60 - 181 ng/dL [facility] Comment: Lab test performed by: [employer] [address] ANUP PAYNE MD Blood specimen (specimen) 09/01/2007 3:12 PM CDT 09/01/2007 3:19 PM CDT Ant Smart MD CHEMISTRY ORDERABLES Final R esult Performing Organization Address [facility] Co de Phone Number [facility] CLIA# [id number] [address] [place] [address] * T4 TOTAL (09/01/2007 3:12 PM CDT) [facility] T4 TOTAL 8.6 4.5 - 12.5 ug/dL [facility] Comment: Lab test performed by: [employer] [address] ANUP PAYNE MD Blood specimen (specimen) 09/01/2007 3:12 PM CDT 09/01/2007 3:19 PM CDT Ant Smart MD CHEMISTRY ORDERABLES Final R esult Performing Organization Address City/[facility] Co de Phone Number [facility] CLIA# [id number] [address] [place] [address] * CYCLIC CITRULLINATED PEPTIDE AB IGG (09/01/2007 3:12 PM CDT) CYCLIC CITRULLINATED PEPTIDE AB IGG <20 Units [facility] Comment: REFERENCE RANGE: NEGATIVE: <20 WEAK POSITIVE: 20-39 MODERATE/STRONG POSITIVE: 40-59 STRONG POSITIVE: >59 Lab test performed by: [employer] [place] [address] ANUP PAYNE MD Blood specimen (specimen) 09/01/2007 3:12 PM CDT 09/01/2007 3:19 PM CDT Narrative INTERFACE SYSTEM - 11/18/2007 5:00 PM CDT results faxed 11/18/07 5:00 PM dl Ant Smart MD CHEMISTRY ORDERABLES Edited Performing Organization Address [facility] Co de Phone Number INTERFACE SYSTEM Refer to clinic/hospital department [facility] CLIA# [id number] [address] [place] [address] * ALDOLASE (09/01/2007 3:12 PM CDT) ALDOLASE 4.2 < OR = 8.1 U/L [facility] Comment: Lab test performed by: [employer] [place] [address] ANUP PAYNE MD Blood specimen (specimen) 09/01/2007 3:12 PM CDT 09/01/2007 3:19 PM CDT Ant Smart MD CHEMISTRY ORDERABLES Final R esult Performing Organization Address City/[facility] Co de Phone Number [facility] CLIA# [id number] [address] [place] [address] * MRI CERV THOR W WO CONT (09/01/2007 11:04 AM CDT) Anatomical Region Laterality Modality Spine Other 09/01/2007 11:0 4 AM CDT Narrative 09/06/2007 12:36 PM CDT [facility] [address] [place], [place] [address] Admit Date: 08/31/2007 ANUP WEST Sex: M Admit Prov: KAYLEIGH MONDRAGON Lauryn Date: 1960 Primary Care Prov: RASHMIALLEGRA NORRIS CMRN: [id number] Room: [address] [place] [address] SSN: [id number] IMAGING SERVICES Ordering Prov: N/A Accession Number: [id number] Interpretation MRI OF THE CERVICAL SPINE WITHOUT AND WITH IV CONTRAST, 09/01/2007 History: Abscess Comparison: 08/31/2007 open MRI cervical study. Findings: The exam was performed under general anesthesia on a GE 1.5 T MRI. There is cervical straightening but no canal stenosis, cord signal abnormality or definite epidural collection. There is some edema surrounding the spinous processes of C7, T1, and T2, but this is not near the ligaments or epidural space. There is some enhancement in the same region after contrast, but no discrete soft tissue abscess, fluid collection, soft tissue mass or muscle enhancement is identified. There is again no epidural abscess or fluid collection. Impression: Edema and minor likely reactive enhancement adjacent to the C7, T1, and T2 spinous processes. No epidural abscess. MRI OF THE THORACIC SPINE WITHOUT AND WITH IV CONTRAST, 09/01/2007 Findings: Thoracic sequences demonstrate no discrete collection in the epidural space, and no cord compression, cord signal abnormality or canal stenosis. There is minor degenerative disc change at T9-T10 and T10-T11, and T11-T12, but there is no canal stenosis or cord compression seen. There is no abnormal enhancement present after contrast administration, other than adjacent to the spinous processes as described above. Impression: No epidural or soft tissue abscess. No evidence of discitis or osteomyelitis. Minor degenerative changes. . Report revised on 09/04/2007 8:29:48 AM by HAILEE PISANO Dictated by: HAILEE PISANO 09/01/2007 11:40 Electronically signed by: HAILEE PISANO 09/04/2007 08:29 Transcribed: 09/04/2007 07:08 AMK Procedure Note Hailee Pisano - 09/06/2007 [facility] [address], [place] [address] Admit Date: 08/31/2007 ANUP WEST Sex: M Admit Prov: KAYLEIGH MONDRAGON Lauryn Date: 1960 Primary Care Prov: NORRIS DAUGEHRTY CMRN: [id number] Room: [address] [place] [address] SSN: [id number] IMAGING SERVICES Ordering Prov: N/A Interpretation MRI OF THE CERVICAL SPINE WITHOUT AND WITH IV CONTRAST, 09/01/2007 History: Abscess Comparison: 08/31/2007 open MRI cervical study. Findings: The exam was performed under general anesthesia on a GE 1.5T MRI. There is cervical straightening but no canal stenosis, cordsignal abnormality or definite epidural collection. There is some edema surrounding the spinous processes of C7, T1, and T2, but this is notnear the ligaments or epidural space. There is some enhancement in thesame region after contrast, but no discrete soft tissue abscess, fluid collection, soft tissue mass or muscle enhancement is identified.There is again no epidural abscess or fluid collection. Impression: Edema and minor likely reactive enhancement adjacent to the C7, T1,and T2 spinous processes. No epidural abscess. MRI OF THE THORACIC SPINE WITHOUT AND WITH IV CONTRAST, 09/01/2007 Findings: Thoracic sequences demonstrate no discrete collection inthe epidural space, and no cord compression, cord signal abnormality orcanal stenosis. There is minor degenerative disc change at T9-T10 [id number], and T11-T12, but there is no canal stenosis or cord compression seen.There is no abnormal enhancement present after contrast administration,other than adjacent to the spinous processes as described above. Impression: No epidural or soft tissue abscess. No evidence of discitis or osteomyelitis. Minor degenerative changes. . Report revised on 09/04/2007 8:29:48 AM by HAILEE PISANO Dictated by: HAILEE PISANO 09/01/2007 11:40 Electronically signed by: HAILEE PISANO 09/04/2007 08:29 Transcribed: 09/04/2007 07:08 AMK Davide Vaca MD MR ORDERABLES Edited * LIGIA (09/01/2007 4:47 AM CDT) [facility] LIGIA SCREEN NEGATIVE NEGATIVE [facility] Comment: Lab test performed by: [employer] [address] [place] [address] ANUP PAYNE MD Blood specimen (specimen) 09/01/2007 4:47 AM CDT 09/01/2007 5:29 AM CDT Kayleigh Mondragon MD CHEMISTRY ORDERABLES Final Res ult Performing Organization Address [facility]/ZIP Co de Phone Number [facility] CLIA# [id number] [address] [place] [address] * RHEUMATOID FACTOR (09/01/2007 4:47 AM CDT) [facility] RHEUMATOID FACTOR 9.8 0.0 - 13.9 IU/mL [facility] Blood specimen (specimen) 09/01/2007 4:47 AM CDT 09/01/2007 5:29 AM CDT Kyaleigh Mondragon MD CHEMISTRY ORDERABLES Final Res ult Performing Organization Address City/[facility]/ZIP Co de Phone Number [facility] CLIA# [id number] [address] [place] [address] * (ABNORMAL) C-REACTIVE PROTEIN (09/01/2007 4:47 AM CDT) [facility] CRP 12.9(H) 0.0 - 0.8 mg/dL [facility] Blood specimen (specimen) 09/01/2007 4:47 AM CDT 09/01/2007 5:29 AM CDT Kayleigh Mondragon MD CHEMISTRY ORDERABLES Final Res ult Performing Organization Address [facility] Co de Phone Number [facility] CLIA# [id number] [address] [place] [address] * (ABNORMAL) TSH (09/01/2007 4:47 AM CDT) TSH 4.90(H) 0.27 - 4.20 uU/mL [facility] Blood specimen (specimen) 09/01/2007 4:47 AM CDT 09/01/2007 5:29 AM CDT Kayleigh Mondragon MD CHEMISTRY ORDERABLES Final Res ult Performing Organization Address [facility] de Phone Number [facility] CLIA# [id number] [address] [place] [address] * (ABNORMAL) COMPREHENSIVE METABOLIC PANEL (09/01/2007 4:47 AM CDT) POTASSIUM 4.1 3.5 - 4.9 mmol/L [facility] TOTAL PROTEIN 5.8(L) 6.3 - 8.6 g/dL [facility] GLUCOSE 115(H) 65 - 99 mg/dL [facility] AST 14 12 - 38 U/L [facility] BUN 13 6 - 20 mg/dL [facility] CALCIUM 8.1(L) 8.4 - 10.2 mg/dL [facility] ALBUMIN 3.1(L) 3.4 - 4.8 g/dL [facility] CHLORIDE 100 96 - 108 mmol/L [facility] CREATININE 0.70 0.67 - 1.17 mg/dL [facility] ALT 23 0 - 41 U/L [facility] SODIUM 135 135 - 145 mmol/L [facility] ALKALINE PHOSPHATASE 73 40 - 129 U/L [facility] CO2 26 22 - 30 mmol/L [facility] BILIRUBIN TOTAL 0.2 0.2 - 1.0 mg/dL [facility] GFR, >60 >=60 mL/min/1. 7 sq meter [facility] GFR >60 >=60 mL/min/1. 7 sq meter [facility] Comment: Modification of Diet in Renal Disease (MDRD) study formula. Estimated GFR rate interpretative information for both Americans and non- Americans is available on the [facility] Intranet at: [email or web address] Select: Lab Policies and Procedures Select: Reference Ranges - GFR Blood specimen (specimen) 09/01/2007 4:47 AM CDT 09/01/2007 5:29 AM CDT Kayleigh Mondragon MD CHEMISTRY ORDERABLES Edited Performing Organization Address [facility] Co de Phone Number [facility] CLIA# [id number] [address] [place] [address] * (ABNORMAL) SEDIMENTATION RATE (09/01/2007 4:47 AM CDT) ESR (SEDIMENTATION RATE) 56(H) 0 - 15 mm/hr [facility] Comment:New methodology effe ctive 08/27/2007. Note new reference range. Blood specimen (specimen) 09/01/2007 4:47 AM CDT 09/01/2007 5:29 AM CDT Kayleigh Mondragon MD HEMATOLOGY ORDERABLES Final Re sult Performing Organization Address [facility] Co de Phone Number [facility] CLIA# [id number] [address] [place], [place] [address] * (ABNORMAL) CBC WITH DIFFERENTIAL (09/01/2007 4:47 AM CDT) HEMATOCRIT 35.8(L) 40.0 - 48.0 % [facility] RDW-STDEV 43.9 37.1 - 48.7 fL [facility] RBC 4.10(L) 4.50 - 5.40 M/uL [facility] MCHC 33.0 31.5 - 35.5 % [facility] MCV 87.3 82.0 - 99.0 fL [facility] PLATELETS 413(H) 140 - 350 K/uL [facility] HEMOGLOBIN 11.8(L) 13.6 - 16.5 g/dL [facility] RDW 13.8 11.5 - 14.5 % [facility] WBC 8.9 4.0 - 9.8 K/uL [facility] MCH 28.8 27.2 - 32.6 pg [facility] MPV 9.7 9.3 - 12.4 fL [facility] BASOPHILS ABSOLUTE 0.02 0.00 - 0.20 K/uL [facility] MONOCYTES 9 3 - 13 % [facility] MONOCYTE ABSOLUTE 0.82 0.10 - 1.30 K/uL [facility] NEUTROPHILS 52 45 - 70 % [facility] NEUTROPHIL ABSOLUTE 4.61 1.90 - 7.00 K/uL [facility] EOSINOPHILS 4 0 - 7 % [facility] EOSINOPHIL ABSOLUTE 0.31 0.00 - 0.70 K/uL [facility] LYMPHOCYTES 35 16 - 45 % [facility] LYMPHOCYTE ABSOLUTE 3.09 0.70 - 4.50 K/uL [facility] BASOPHILS 0 0 - 2 % [facility] Blood specimen (specimen) 09/01/2007 4:47 AM CDT 09/01/2007 5:29 AM CDT Kayleigh Mondragon MD HEMATOLOGY ORDERABLES Edited Performing Organization Address [facility] de Phone Number INTERFACE SYSTEM Refer to clinic/hospital department [facility] CLIA# [id number] [address] [place] [address] * NASAL CULTURE (08/31/2007 6:56 PM CDT) PRELIMINARY REPORT Very light growth Mold Light growth normal lynn [facility] FINAL REPORT Very light growth Alternaria species Light growth normal lynn [facility] Nares 08/31/2007 6:56 PM CDT 08/31/2007 7:14 PM CDT us Billy Goldman MD MICROBIOLOGY - GENERAL O RDERABLES Edited Performing Organization Address [facility] de Phone Number [facility] CLIA# [id number] [address] [place] [address] * BLOOD CULTURE (08/31/2007 4:30 PM CDT) PRELIMINARY REPORT No growth to date. Culture in progress [facility] FINAL REPORT No growth 5 days [facility] Blood specimen (specimen) 08/31/2007 4:30 PM CDT 08/31/2007 4:52 PM CDT us Kayleigh Mondragon MD MICROBIOLOGY - GENERAL ORDERAB LES Final Result Performing Organization Address [facility] Co de Phone Number [facility] CLIA# [id number] [address] [place] [address] * BLOOD CULTURE (08/31/2007 4:25 PM CDT) PRELIMINARY REPORT No growth to date. Culture in progress [facility] FINAL REPORT No growth 5 days [facility] Blood specimen (specimen) 08/31/2007 4:25 PM CDT 08/31/2007 4:52 PM CDT us Kayleigh Mondragon MD MICROBIOLOGY - GENERAL ORDERAB LES Final Result [facility] CLIA# [id number] [address] [place] [address] * XR HAND 3+ VW LEFT (08/31/2007 4:15 PM CDT) Anatomical Region Laterality Modality Wrist / Hand Other 08/31/2007 4:15 PM CDT Narrative 09/01/2007 6:23 PM CDT [facility] [address] [place], [place] [address] Admit Date: 08/31/2007 ANUP WEST Sex: M Admit Prov: KAYLEIGH MONDRAGON Date: 1960 Primary Care Prov: JOVITASIMÓNNORRIS CMRN: [id number] Room: [address] [place] [address] SSN: [id number] IMAGING SERVICES Ordering Prov: N/A Accession Number: [id number] Interpretation LEFT HAND 3 VIEWS, 08/31/2007 History: Left hand swelling, cervical radiculopathy. Findings: There is fusiform swelling of the digits, 1 through 5. There is also soft tissue swelling of the dorsal and ventral aspect of the hand. Distal radius and ulna appear normal. Mild osteoarthritic changes of the thumbs, interphalangeal joint are noted. No periosteal reaction or lytic or blastic lesion is seen. There is a metallic fragment noted at the ventral, ulnar aspect of the hand at the level of the 5th MCP joint. No other abnormalities are seen. Impression: Metallic foreign body several millimeters in size at ulnar aspect of hand. Generalized soft tissue swelling. . Dictated by: RONEY QUINTANILLA 08/31/2007 17:29 Electronically signed by: RONEY QUINTANILLA 09/01/2007 18:22 Transcribed: 09/01/2007 07:08 SMM Procedure Note Roney Quintanilla MD - 09/01/[address] [address] Admit Date: 08/31/2007 AUNP WEST Sex: M Admit Prov: KAYLEIGH MONDRAGON Date: 1960 Primary Care Prov: NORRIS DAUGHERTY CMRN: [id number] Room: [address] [place] [address] SSN: [id number] IMAGING SERVICES Ordering Prov: N/A Interpretation LEFT HAND 3 VIEWS, 08/31/2007 History: Left hand swelling, cervical radiculopathy. Findings: There is fusiform swelling of the digits, 1 through 5. There is alsosoft tissue swelling of the dorsal and ventral aspect of the hand. Distalradius and ulna appear normal. Mild osteoarthritic changes of the thumbs, interphalangeal joint are noted. No periosteal reaction or lytic orblastic lesion is seen. There is a metallic fragment noted at the ventral,ulnar aspect of the hand at the level of the 5th MCP joint. No other abnormalities are seen. Impression: Metallic foreign body several millimeters in size at ulnar aspect ofhand. Generalized soft tissue swelling. . Dictated by: RONEY QUINTANILLA 08/31/2007 17:29 Electronically signed by: RONEY QUINTANILLA 09/01/2007 18:22 Transcribed: 09/01/2007 07:08 [place] us Kayleigh Mondragon MD DIAGNOSTIC IMAGING ORDERABLES Final Result * US DOPPLER ARTERIAL LEGS BILATERAL (08/31/2007 2:51 PM CDT) Anatomical Region Laterality Modality Lower Extremity Other Narrative 08/31/2007 2:51 PM CDT Please type in written order in Special Instructions field. [address] [address] [place] [address] [email or web address] Peripheral Venous Study Patient: Anup West Study ID: BLOOD FLOW STUDY Gender: M : 1960 Age: 47 years Race: 1 Room: Bed: Height: Study Date: August 31, 2007 Patient status: Inpatient Weight: Access. #: [id number] POC: Oil Deliverer: Trino Ordering: Eli Attending MD: Bayron Admitting MD: Eli SUMMARY: There was no evidence of deep venous thrombosis or superficial thrombosis of the left upper extremity veins by duplex examination. COMPARISONS No previous study is available for comparison. HISTORY AND INDICATIONS: INDICATIONS: Left upper extremity swelling. Left upper extremity pain. HISTORY: Risk factors and comorbidity: No previous deep vein thrombosis. Not post surgery. The patient is not on an anticoagulant.. PROCEDURE INFORMATION: PROCEDURE PERFORMED: Complete color duplex study with imaging and spectral analysis was performed. LEFT DUPLEX DATA Patency/occlusion Flow pattern B-mode compressibility Jugular Patent Normal Normal Subclavian Patent Normal -- Axillary Patent Normal Normal Basilic Patent Normal Normal Cephalic Patent Normal Normal Brachial Patent Normal Normal Prepared and Electronically Authenticated Noman Shell MD Confirmed August 31, 2007 14:48:47 Procedure Note Provider, Historical - 08/31/2007 Please type in written order in Special Instructions field. [facility] [address] [place] [address] [email or web address] [facility] Peripheral Venous Study Patient: Anup West Study ID: BLOOD FLOW STUDY Gender: Carlton : 1960 Age: 47 years Race: 1 Room: Bed: Height: Study Date: August 31, 2007 Patient status: Inpatient Weight: Access. #: [id number] POC: Oil Deliverer: Milenaoindexlindy Ordering: Eli Attending MD: Bayron Admitting MD: Eli SUMMARY: There was no evidence of deep venous thrombosis or superficial thrombosisof the left upper extremity veins by duplex examination. COMPARISONS No previous study is available for comparison. HISTORY AND INDICATIONS: INDICATIONS: Left upper extremity swelling. Left upper extremity pain. HISTORY: Risk factors and comorbidity: No previous deep vein thrombosis. Not post surgery. The patient is not on an anticoagulant.. PROCEDURE INFORMATION: PROCEDURE PERFORMED: Complete color duplex study with imaging and spectral analysis wasperformed. LEFT DUPLEX DATA Patency/occlusion Flow pattern B-mode compressibility Jugular Patent Normal Normal Subclavian Patent Normal -- Axillary Patent Normal Normal Basilic Patent Normal Normal Cephalic Patent Normal Normal Brachial Patent Normal Normal Prepared and Electronically Authenticated Noman Shell MD Confirmed August 31, 2007 14:48:47 us Kayleigh Mondragon MD ORDERABLES Final Result * MRI CERVICAL W WO CONTRAST (08/31/2007 11:53 AM CDT) Anatomical Region Laterality Modality Spine Other 08/31/2007 11:5 3 AM CDT Narrative 09/06/2007 12:27 PM CDT [facility] [address] [place], [place] [address] Admit Date: 08/31/2007 ANUP WEST Sex: M Admit Prov: KAYLEIGH MONDRAGON Date: 1960 Primary Care Prov: NORRIS DAUGHERTY CMRN: [id number] Room: [address] [place] [address] SSN: [id number] IMAGING SERVICES Ordering Prov: N/A Accession Number: [id number] Interpretation MR IMAGING OF THE CERVICAL SPINE WITHOUT AND WITH IV CONTRAST, 08/31/2007 History: Left hand swelling and pain, rule out epidural abscess, patient had an epidural steroid injection 08/27/2007 and worked two 12-hours days. Findings: Cervical spinal cord has normal signal intensity. There is some straightening of cervical lordosis which may indicate muscle spasm. Craniovertebral junction is normal. C1 level is normal in AP diameter. C1-2 is without disc herniation or stenosis. C2 level is normal. C2-C3 shows no disc herniation or stenosis. C3 level is normal in AP diameter. C3-4 is without disc herniation or stenosis. C4 level is normal in AP diameter. C4- C5 is without disc herniation or stenosis. C5 level is normal in AP diameter. C5-6 has mild osteophytic ridging without stenosis or herniation. C6 level is normal in AP diameter. C6-C7 is without disc herniation or stenosis. C7-T1 level is without disc herniation or stenosis. Dorsally within the spinal canal between about C6-C7 and mid T2, there is a T2 bright collection present. This does not show definite enhancement, however there is some motion artifact on the T1 weighted enhanced images due to patient's discomfort. This area measures about 5 cm in craniocaudad extent, and a maximum thickness is about 5 mm. This may be small epidural or subdural hematoma, collection of anesthetic, or conceivably an epidural abscess. Impression: Findings suspicious for epidural or subdural collection dorsal to C6-T2 level. Dr. Goldman was paged to discuss test results. . Report revised on 09/03/2007 4:58:49 PM by RONEY QUINTANILLA Dictated by: RONEY QUINTANILLA 08/31/2007 13:05 Electronically signed by: RONEY QUINTANILLA 09/03/2007 16:58 Transcribed: 09/02/2007 11:24 AMK Procedure Note Roney Quintanilla MD - 09/06/2007 [facility] [address], [place] [address] Admit Date: 08/31/2007 ANUP WEST Sex: M Admit Prov: KAYLEIGH MONDRAGON Lauryn Date: 1960 Primary Care Prov: NORRIS DAUGHERTY CMRN: [id number] Room: [address] [place] [address] SSN: [id number] IMAGING SERVICES Ordering Prov: N/A Interpretation MR IMAGING OF THE CERVICAL SPINE WITHOUT AND WITH IV CONTRAST,08/31/2007 History: Left hand swelling and pain, rule out epidural abscess,patient had an epidural steroid injection 08/27/2007 and worked two 12-hoursdays. Findings: Cervical spinal cord has normal signal intensity. There is some straightening of cervical lordosis which may indicate muscle spasm. Craniovertebral junction is normal. C1 level is normal in APdiameter. C1-2 is without disc herniation or stenosis. C2 level is normal. C2-B7rrwmc no disc herniation or stenosis. C3 level is normal in AP diameter. C3-4is without disc herniation or stenosis. C4 level is normal in APdiameter. C4- C5 is without disc herniation or stenosis. C5 level is normal in AP diameter. C5-6 has mild osteophytic ridging without stenosis orherniation. C6 level is normal in AP diameter. C6-C7 is without disc herniationor stenosis. C7-T1 level is without disc herniation or stenosis. Dorsally within the spinal canal between about C6-C7 and mid T2,there is a T2 bright collection present. This does not show definiteenhancement, however there is some motion artifact on the T1 weighted enhancedimages due to patient's discomfort. This area measures about 5 cm incraniocaudad extent, and a maximum thickness is about 5 mm. This may be smallepidural or subdural hematoma, collection of anesthetic, or conceivably anepidural abscess. Impression: Findings suspicious for epidural or subdural collection dorsal toC6-T2 level. Dr. Goldman was paged to discuss test results. . Report revised on 09/03/2007 4:58:49 PM by RONEY QUINTANILLA Dictated by: RONEY QUINTANILLA 08/31/2007 13:05 Electronically signed by: RONEY QUINTANILLA 09/03/2007 16:58 Transcribed: 09/02/2007 11:24 AMK us Kayleigh Mondragon MD MR ORDERABLES Edited * CT CERVICAL SPINE WO CONTRAST (08/31/2007 2:27 AM CDT) Anatomical Region Laterality Modality Spine Other 08/31/2007 2:27 AM CDT Narrative 08/31/2007 9:02 AM CDT [facility] [address] [place], [place] [address] Admit Date: 08/31/2007 ANUP WEST Sex: M Admit Prov: KAYLEIGH MONDRAGON Date: 1960 Primary Care Prov: NORRIS DAUGHERTY CMRN: [id number] Room: [address] [place] [address] SSN: [id number] IMAGING SERVICES Ordering Prov: N/A Accession Number: [id number] Interpretation CT OF THE CERVICAL SPINE WITHOUT CONTRAST, 08/31/2007 Clinical History: Neck pain and left arm pain. The patient had a steroid injection in the neck approximately one week earlier. Technique: Spiral volumetric acquisition of the cervical spine was performed without contrast. Sagittal and coronal reconstructions were performed. Findings: No fracture is evident. 2 mm of retrolisthesis is noted at the C5-6 level. Alignment is otherwise intact. There is mild reversal of the normal cervical lordosis with the apex at the C5 level. Prevertebral soft tissues are unremarkable. The facet joints are normally aligned. Disc space narrowing is present at the C4-C5 and C5-6 levels. Mild marginal endplate osteophyte formation is noted at the C4-5 and C5-6 levels. Impression: No fracture. Mild reversal of the normal cervical lordosis. 2 mm of retrolisthesis at the C5-6 level, likely on a degenerative basis. Mild multilevel degenerative change. . Dictated by: JERI GUAJARDO 08/31/2007 08:20 Electronically signed by: JERI GUAJARDO08/31/2007 09:01 Transcribed: 08/31/2007 08:53 SMM Procedure Note Jeri Guajardo MD - 08/31/2007 [facility] [address], [place] [address] Admit Date: 08/31/2007 ANUP WEST Sex: M Admit Prov: MONDRAGONKAYLEIGH Date: 1960 Primary Care Prov: NORRIS DAUGHERTY CMRN: [id number] Room: [address] [place] [address] SSN: [id number] IMAGING SERVICES Ordering Prov: N/A Interpretation CT OF THE CERVICAL SPINE WITHOUT CONTRAST, 08/31/2007 Clinical History: Neck pain and left arm pain. The patient had asteroid injection in the neck approximately one week earlier. Technique: Spiral volumetric acquisition of the cervical spine was performed without contrast. Sagittal and coronal reconstructionswere performed. Findings: No fracture is evident. 2 mm of retrolisthesis is noted at the C5-6level. Alignment is otherwise intact. There is mild reversal of the normal cervical lordosis with the apex at the C5 level. Prevertebral softtissues are unremarkable. The facet joints are normally aligned. Disc space narrowing is present at the C4-C5 and C5-6 levels. Mild marginalendplate osteophyte formation is noted at the C4-5 and C5-6 levels. Impression: No fracture. Mild reversal of the normal cervical lordosis. 2 mm of retrolisthesis at the C5-6 level, likely on a degenerativebasis. Mild multilevel degenerative change. . Dictated by: JERI GUAJARDO 08/31/2007 08:20 Electronically signed by: JERI GUAJARDO08/31/2007 09:01 Transcribed: 08/31/2007 08:53 SMM Elissa Wheeler MD CT ORDERABLES Final Result * (ABNORMAL) C-REACTIVE PROTEIN (08/31/2007 2:24 AM CDT) CRP 6.3(H) 0.0 - 0.8 mg/dL [facility] Blood specimen (specimen) 08/31/2007 2:24 AM CDT 08/31/2007 2:28 AM CDT Elissa Wheeler MD CHEMISTRY ORDERABLES Final Resul t [facility] CLIA# [id number] [address] [facility] [place] [place] [address] * (ABNORMAL) COMPREHENSIVE METABOLIC PANEL (08/31/2007 2:24 AM CDT) Pathologist [facility] CREATININE 0.70 0.67 - 1.17 mg/dL [facility] ALT 27 0 - 41 U/L [facility] SODIUM 133(L) 135 - 145 mmol/L [facility] ALKALINE PHOSPHATASE 87 40 - 129 U/L [facility] CO2 27 22 - 30 mmol/L [facility] BILIRUBIN TOTAL 0.3 0.2 - 1.0 mg/dL [facility] POTASSIUM 4.8 3.5 - 4.9 mmol/L [facility] Comment: Slight hemolysis present. Result may be falsely elevated. TOTAL PROTEIN 7.0 6.3 - 8.6 g/dL [facility] GLUCOSE 98 65 - 99 mg/dL [facility] AST 17 12 - 38 U/L [facility] Comment: Hemolyzed: Result may be falsely elevated. BUN 15 6 - 20 mg/dL [facility] CALCIUM 8.6 8.4 - 10.2 mg/dL [facility] ALBUMIN 3.8 3.4 - 4.8 g/dL [facility] CHLORIDE 99 96 - 108 mmol/L [facility] GFR, >60 >=60 mL/min/1. 7 sq meter [facility] GFR >60 >=60 mL/min/1. 7 sq meter [facility] Comment: Modification of Diet in Renal Disease (MDRD) study formula. Estimated GFR rate interpretative information for both Americans and non- Americans is available on the [facility] Intranet at: [email or web address] Select: Lab Policies and Procedures Select: Reference Ranges - GFR Blood specimen (specimen) 08/31/2007 2:24 AM CDT 08/31/2007 2:28 AM CDT us Elissa Wheeler MD CHEMISTRY ORDERABLES Edited [facility] CLIA# [id number] [address] [place] [address] * (ABNORMAL) CBC WITH DIFFERENTIAL (08/31/2007 2:24 AM CDT) MCV 86.4 82.0 - 99.0 fL [facility] PLATELETS 514(H) 140 - 350 K/uL [facility] HEMOGLOBIN 12.9(L) 13.6 - 16.5 g/dL [facility] RDW 13.8 11.5 - 14.5 % [facility] WBC 12.3(H) 4.0 - 9.8 K/uL [facility] MCH 29.2 27.2 - 32.6 pg [facility] MPV 9.7 9.3 - 12.4 fL [facility] HEMATOCRIT 38.2(L) 40.0 - 48.0 % [facility] RDW-STDEV 43.0 37.1 - 48.7 fL [facility] RBC 4.42(L) 4.50 - 5.40 M/uL [facility] MCHC 33.8 31.5 - 35.5 % [facility] EOSINOPHILS 2 0 - 7 % [facility] EOSINOPHIL ABSOLUTE 0.30 0.00 - 0.70 K/uL [facility] LYMPHOCYTES 26 16 - 45 % [facility] LYMPHOCYTE ABSOLUTE 3.22 0.70 - 4.50 K/uL [facility] BASOPHILS 0 0 - 2 % [facility] BASOPHILS ABSOLUTE 0.03 0.00 - 0.20 K/uL [facility] MONOCYTES 9 3 - 13 % [facility] MONOCYTE ABSOLUTE 1.06 0.10 - 1.30 K/uL [facility] NEUTROPHILS 63 45 - 70 % [facility] NEUTROPHIL ABSOLUTE 7.71(H) 1.90 - 7.00 K/uL [facility] Blood specimen (specimen) 08/31/2007 2:24 AM CDT 08/31/2007 2:28 AM CDT us Elissa Wheeler MD HEMATOLOGY ORDERABLES Edited [facility] CLIA# [id number] [address] [place] [address] documented in this encounter Visit Diagnoses Not on filedocumented in this encounter Care Teams High Density Press Operator Relationship Specialty Start Date End Date Maria De Jesus Fernandez DO PCP - General 03/18/09 documented as of this encounter
--- OUTSIDE RECORDS SUMMARY | 2024-05-20 15:35 | XMS_ITS | Clinical Summary ---
Author Organization [facility] Address [address] [place] [address] Phone Care Team Providers Care County Nurse Name Role Phone JimDiego Primary Care Provider Allergies No known active allergies Medications METHOTREXATE SODIUM (METHOTREXATE, ANTI-RHEUMATIC, PO) Take 22.5 mg by mouth every Friday. 09/23/2010 Active FOLIC ACID PO Take 3 mg by mouth. Active PANTOPRAZOLE SODIUM (PROTONIX PO) Take by mouth daily funeral assistant. 09/22/2010 Active TRAMADOL HCL (TRAMADOL PO) Take 50 mg by mouth every 8 hours. 09/22/2010 Active PIROXICAM ORAL Take by mouth. Active ramipril (ALTACE) 10 mg Oral Tab Take 10 mg by mouth daily funeral assistant. 09/22/2010 Active HYDROcodone-acet aminophen (NORCO) 5-325 mg Oral tablet Take 1 Tab by mouth every 4 hours. 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 Gender Identity Not on file Sexual Orientation Not on file Last Filed Vital Signs Vital Sign Reading Time Taken Comments Blood Pressure 122/77 09/26/2010 7:00 AM CDT Pulse 85 09/26/2010 7:00 AM CDT Temperature 36.7 C (98 F) 09/26/2010 7:00 AM CDT Respiratory Rate 18 09/26/2010 7:00 AM CDT Oxygen Saturation 99% 09/26/2010 7:00 AM CDT Inhaled Oxygen Concentration - - Weight 120.2 kg (265 lb) 09/26/2010 6:00 AM CDT Height 180.3 cm (5' 11 ) 09/22/2010 7:59 PM CDT Body Mass Index 36.96 09/22/2010 7:59 PM CDT Plan of Treatment Health Maintenance Due Date Last Done Comments DTAP/TDAP/TD VACCINES (1 - Tdap) 04/28/1979 PNEUMOCOCCAL VACCINE 0-49 YEARS (1 of 2 - PCV) 980 COLORECTAL SCREENING 2005 Colorectal Cancer Screening 2005 FIT-DNA Q 3 years 2005 FIT/FOBT Q 1 year 2005 Flex Sig/CT Colonography Q 5 years 2005 ZOSTER VACCINE (1 of 2) 2010 INFLUENZA VACCINE (#1) 2023 RSV VACCINE (60+ or ) (1 - 1-dose 75+ series) 04/28/2035 Insurance [facility] BLUE ACCESS/TRUE BLUE PPO Advance Directives For more information, please contact: [phone] * Full Code (Latest Code Status on File) Date Activated Date Inactivated Comments 09/23/2010 12:33 AM 09/26/2010 3:07 PM Care Teams County Nurse Relationship Specialty Start Date End Date Diego Fernandez DO [facility] - General 03/18/09
--- OUTSIDE RECORDS SUMMARY | 2024-05-20 15:35 | XMS_ITS ---
Author Organization [facility] Address [address] [place], [place] [id number] Care Team Providers Care Kilnman Name Role Phone MARCOS WILL Primary Care Provider Elijah Hernandez Unavailable [phone] KAYLEIGH MONDRAGON Unavailable [phone] MEDICATIONS Medication SIG (Take, Route, Frequency, Duration) Notes Start Date End Date Status TraMADol Hydrochloride 50 mg 2 TAB orall y 3 times a day as needed for 30 days [facility] 05/06/2024 Active Encounters Encounter Location Date Provider Diagnosis [facility] [address] [place], [place] [phone] 05/06/2024 Elijah Blanc Psoriatic arthritis L40.50 ASSESSMENTS Encounter Date Diagnosis Assessment Notes Treatment Notes Treatment Clinical Notes 05/06/2024 Psoriatic arthritis (ICD-10 - L40.50) PLAN OF TREATMENT Medication Medication Name Sig Start Date Stop Date Notes TraMADol Hydrochloride 50 mg 2 TAB orall y 3 times a day as needed for 30 days 05/06/2024 [facility] Next Appt Details Provider Name:Paola subramanian, 08/05/2024 09:00:00 AM, [address], [place], [place], [phone],
--- OUTSIDE RECORDS SUMMARY | 2024-05-20 15:35 | XMS_ITS ---
Author Organization [facility] Address [address] [facility] [address] [place], [place] [phone] Care Team Providers Care Stippler Name Role Phone MARCOS WILL Primary Care Provider Unavailcat MannClaude acostageovanni Unavailable [phone] GIANCARLOKAYLEIGH Unavailable [phone] Scheidemantel Paola Unavailable ALLERGIES No Known Allergies RESULTS Component Value Reference Range Notes AST (SGOT) Reviewed date:04/02/2024 09:26:29 AM Interpretation: [facility]forming [facility], Phone - [phone], [facility]/Report: AST (SGOT) 16 0-40 IU/L Creatinine, Serum Reviewed date:04/02/2024 09:26:29 AM Interpretation: Performing [facility], Phone - [phone], [facility] Notes/Report: Creatinine 0.86 0.76-1.27 mg/dL eGFR 97 >59 mL/min/1.73 ALT (SGPT) Reviewed date:04/02/2024 09:26:29 AM Interpretation: Performing [facility], Phone - [phone], [facility] Notes/Report: ALT (SGPT) 15 0-44 IU/L CBC With Differential/Platel et Reviewed date:04/02/2024 09:26:29 AM Interpretation: Performing [facility], Phone - [phone], [facility]/Report: WBC 6.1 3.4-10.8 x10E3/uL RBC 4.57 4.14-5.80 x10E6/uL Hemoglobin 13.8 13.0-17.7 g/dL Hematocrit 41.1 37.5-51.0 % MCV 90 79-97 fL MCH 30.2 26.6-33.0 pg MCHC 33.6 31.5-35.7 g/dL RDW 13.7 11.6-15.4 % Platelets 313 150-450 x10E3/uL Neutrophils 57 Not Estab. % Lymphs 33 Not Estab. % Monocytes 7 Not Estab. % Eos 3 Not Estab. % Basos 0 Not Estab. % Immature Cells Neutrophils (Absolute) 3.5 1.4-7.0 x10E3/uL Lymphs (Absolute) 2.0 0.7-3.1 x10E3/uL Monocytes(Absolute) 0.4 0.1-0.9 x10E3/uL Eos (Absolute) 0.2 0.0-0.4 x10E3/uL Baso (Absolute) 0.0 0.0-0.2 x10E3/uL Immature Granulocytes 0 Not Estab. % Immature Grans (Abs) 0.0 0.0-0.1 x10E3/uL NRBC Hematology Comments: Sed Rate - Westergren Reviewed date:04/02/2024 09:26:29 AM Interpretation: Performing Lab:[facility] [place], [address] [facility], Phone - [phone], Director [facility] Notes/Report: Sedimentation Rate-Stanleyergren 14 0-30 mm/hr C-Reactive Protein, Quant Reviewed date:04/02/2024 09:26:29 AM Interpretation: Performing Lab:[facility] [place], [address] [facility], Phone - [phone], [facility] Notes/Report: C-Reactive Protein, Quant 2 0-10 mg/L REASON FOR VISIT Patient is here for PsA follow up. MEDICATIONS Medication SIG (Take, Route, Frequency, Duration) Notes Start Date End Date Status triamcinolone topical 0.025% 1 charisse appli ed topically psoriatic patches 3 times a day 07/23/2012 Active folic acid 1MG 3 tab(s) orally once a day Active TraMADol Hydrochloride 50 mg 2 TAB orall y 3 times a day as needed ACI 02/11/2024 Active piroxicam 20 mg 1 cap(s) orally once a day Active Methotrexate Sodium 2.5 mg 10 tabs orall y once a week Active pantoprazole 20 mg 1 tab(s) orally once a day Active Vitamin D3 2000 intl units 1 cap(s) oral ly once a day Active ramipril 2.5 mg 1 cap(s) orally once a day Active Lidoderm 5% 1 PATCH applied topically to lower back 12 hours on 12 hours off ACI 11/27/2015 Active PROBLEMS Problem Type ICD Code Onset Dates Problem Status W/U Status Risk SNOMED Code Notes Problem Vitamin D deficiency (E55.9) Active confirmed 41205625 VITAL SIGNS BMI 35.14 kg/m2 04/01/2024 Blood pressure systolic 140 mm Hg 04/01/19 25 Blood pressure diastolic 84 mm Hg 025 Heart Rate 71 /min 04/01/2024 Height 71 in 04/01/2024 Weight 252 lbs 04/01/2024 Encounters Encounter Location Date Provider Diagnosis [facility] [address] [place] [address], [address] [place], [place] [phone] 04/01/2024 Paola Scheidemantel Psoriatic arthritis L40.50 ; Other terminal carman (current) drug therapy Z79.899 ; Encounter for screening for respiratory tuberculosis Z11.1 ; Vitamin D deficiency E55.9 and Screening for tuberculosis Z11.1 ASSESSMENTS Encounter Date Diagnosis Assessment Notes Treatment Notes Treatment Clinical Notes 04/01/2024 Psoriatic arthritis (ICD-10 - L40.50) 04/01/2024 Other shelter (current) drug therapy (ICD-10 - Z79.899) 04/01/2024 Encounter for screening for respiratory tuberculosis (ICD-10 - Z11.1) 04/01/2024 Vitamin D deficiency (ICD-10 - E55.9) 04/01/2024 Screening for tuberculosis (ICD-10 - Z11.1) PLAN OF TREATMENT Medication Medication Name Sig Start Date Stop Date Notes triamcinolone topical 0.025% 1 charisse appli ed topically psoriatic patches 3 times a day 07/23/2012 folic acid 1MG 3 tab(s) orally once a day TraMADol Hydrochloride 50 mg 2 TAB orall y 3 times a day as needed 02/11/2024 ACI piroxicam 20 mg 1 cap(s) orally once a day Methotrexate Sodium 2.5 mg 10 tabs orally once a week pantoprazole 20 mg 1 tab(s) orally once a day Vitamin D3 2000 intl units 1 cap(s) orally once a day ramipril 2.5 mg 1 cap(s) orally once a day Lidoderm 5% 1 PATCH applied topi mariano to lower back 12 hours on 12 hours off 11/27/2015 [facility] Next Appt Details Follow Up: 3-4 mon, Reason: Provider Name:Paola subramanian, 08/05/2024 09:00:00 AM, [address] [facility], [address], [place], [place], [phone], Progress Notes * Examination Category Sub-Category Detail Notes General Constitutional: NAD HEENT: PERRLA Cardiovascular RSR, normal S1 S2 Lungs: clear to ausculation Skin: No cutaneous lesions . No subcutaneous nodules noted in the 4 extremities. Neurological: normal sensation and strength Psych: alert, oriented x 3, affect normal Musculoskeletal: Normal strength. No muscle atrophy Joint Exam Shoulders No swelling. No tenderness. NROM., left, Shoulder replacement Elbows No swelling. No tend erness. NROM., No instability or deformity. Wrists No swelling. No tend erness. NROM. Hips No tenderness, richard l ROM, no instability or deformity Knees No swelling, no tend erness, NROM. No instability or deformity Ankles No swelling, no tend erness, NROM., No instability or deformity. All MCPs No swelling, no tend erness, no deformity unless noted below. All PIPs No swelling, no tend erness, no deformity unless noted below. All DIPs No swelling, no tend erness, no deformity unless noted below. All MTPs No swelling, no tend erness, NROM, no deformity unless noted below. History and Physical Notes * HPI (History of Present Illness) Category Sub-Category Detail Notes Psoriatic Arthritis Morning Stiffness < 30 minut es Medication problems Joint pain left neck, shoulder Skin lesions Joint swelling fatigue fever shortness of breath infection rash low back pain tailbone always Chest pain Physical Examination Category Sub-Category Detail Notes MDHAQ Summary Function (0-10):: 2 Pain (0-10):: 2.5 Patient Global Assessment of Disease Activity (0 -10):: 1.5 RAPID3 Score (0-30):: 6 Physician Global Assessment of Disease Activity (0-10):: 2 Prognosis Very Good w/tx Erosive Damage No
--- OUTSIDE RECORDS SUMMARY | 2024-05-20 15:35 | XMS_ITS | Clinical Summary ---
Author Organization [facility] Address [address] [place] [address] Care Team Providers Care Cinder Worker Name Role Phone Unavailable Primary Care Provider Unavailabl e Source Comments [facility],non-owned Affiliates and Associated Physician Practices is amultiple site organization consisting of ambulatory clinics and hospital sitesin [place], [place], [place] and [place]. This disclosure is being madepursuant to the Care Everywhere program and may not contain all information available regarding this patient. Last updated 17.Exegy Allergies No known active allergies Medications * Be aware that medications may not be up to date on this document. Alwaysverify current medications with the patient. Medication Sig Dispensed Refills Start Date End Date Status folic acid (FOLVITE) 1 MG tabletIndications:LEONOR D (gastroesophageal reflux disease),Umbilical hernia,Elevated blood pressure (not hypertension),FHx: diabetes mellitus,Vitamin d deficiency Take 1 mg by mouth as directed. 3 po daily in am. Active methotrexate (RHEUMATREX) 2.5 MG tabletIndications:LEONOR D (gastroesophageal reflux disease),Umbilical hernia,Elevated blood pressure (not hypertension),FHx: diabetes mellitus,Vitamin d deficiency Take 2.5 mg by mouth as directed. 9 tabs by mouth once a week. Active tramadol (ULTRAM) 50 MG tablet Take 50 mg by mouth every 6 hours as needed for Pain. Active lidocaine (LIDODERM) 5 % patch Apply 1 Patch to skin daily. prn. Active piroxicam (FELDENE) 20 MG capsule Take 20 mg by mouth daily. Active Cholecalciferol (VITAMIN D) 2000 UNIT CAPS Take 1 Tab by mouth daily. Active mupirocin calcium (BACTROBAN) 2 % cream Apply to affected area 2 times daily. 15 g 0 05/28/2010 Active fluticasone propionate (FLONASE) 50 MCG/ACT nasal spray [place] 2 Sprays into each nostril once daily. Generic Please 16 g 5 01/21/2011 Active ramipril (ALTACE) 10 MG tablet Take 1 Tab by mouth once daily. 30 Tab 1 06/17/2011 Active pantoprazole EC (PROTONIX) 40 MG tabletIndications:LEONOR D (gastroesophageal reflux disease),Colon polyps,Diverticulosis ,Polymyalgia (HCC),Smoker Take 1 Tab by mouth daily before breakfast. 30 Tab 0 07/16/2011 Active Active Problems Problem Noted Date Diagnosed Date HTN (hypertension) 05/30/2010 Vitamin D deficiency 05/02/2010 Psoriatic arthritis 04/09/2010 GERD (gastroesophageal reflux disease) 8 Colon polyps 11/04/2007 Diverticulosis 11/04/2007 Smoker 11/04/2007 Family History Medical History Relation Name Comments Cancer Father stomach Diabetes Mother Heart Disease Mother Arthritis - Rheumatoid Sister Relation Name Status Comments Father Mother Sister Social History Tobacco Use Types Packs/Day Years Used Date Smoking Tobacco: Every Day Cigarettes 1 7 Smokeless Tobacco: Never Alcohol Use Standard Drinks/Week Comments No 0 (1 standard drink = 0.6 oz pur e alcohol) Sex and Gender Information Value Date Recorded Sex Assigned at Not on file Gender Identity Not on file Sexual Orientation Not on file Last Filed Vital Signs Vital Sign Reading Time Taken Comments Blood Pressure 124/88 07/05/2010 8:30 AM CDT Pulse 92 07/05/2010 8:30 AM CDT Temperature 36.6 C (97.8 F) 07/05/2010 8:30 AM CDT Respiratory Rate 20 07/05/2010 8:30 AM CDT Oxygen Saturation 99% 06/11/2010 11:57 AM CDT Inhaled Oxygen Concentration - - Weight 123.4 kg (272 lb) 07/05/2010 8:30 AM CDT Height 180.3 cm (5' 11 ) 07/05/2010 8:30 AM CDT Body Mass Index 37.94 07/05/2010 8:30 AM CDT Plan of Treatment Health Maintenance Due Date Last Done Comments COLOGUARD (AGES 45-75) - COL ON CA SCREENING 1960 CT COLONOGRAPHY - COLON CA SCREENING 1960 FIT - COLON CA SCREENING 1960 FLEX SIG - COLON CA SCREENING 1960 HIV SCREENING 04/28/1975 HEPATITIS C SCREENING 04/23/1978 DTAP/TDAP/TD VACCINES (1 - Tdap) 04/28/1979 PNEUMOCOCCAL VACCINE 50+ (1 of 2 - PCV) 04/28/1979 PNEUMOCOCCAL VACCINE (1 of 2 - PCV) 04/28/1979 ZOSTER VACCINE (1 of 2) 2010 LIPID TESTING 04/11/2015 04/11/2010, 11/17/2007 COLON MONITORING 08/10/2019 08/09/2009 COLONOSCOPY - COLON CA SCREENING 08/10/2019 08/09/2009 Colorectal Cancer Screening 08/10/2019 COVID-19 VACCINE ( - 2023-2 5 season) 2023 INFLUENZA VACCINE (#1) 2023 DEPRESSION SCREENING 02/25/2024 Respiratory Syncytial Virus (RSV) Vaccine Pt: or over 60 yrs (1 - 1-dose 75+ series) 04/28/2035 HEPATITIS B VACCINE Aged Out No longe r eligible based on patient's age to complete this topic HIB VACCINE Aged Out No longer eligi ble based on patient's age to complete this topic HPV VACCINE Aged Out No longer eligi ble based on patient's age to complete this topic MENINGOCOCCAL (Group B) VACCINE SHARED DECISION-MAKING Aged Out No longer eligible based on patient's age to complete this topic MENINGOCOCCAL GROUPS A/C/Y/W VACCINE Aged Out No longer eligible b ased on patient's age to complete this topic Procedures Procedure Name Priority Date/Time Associated Diagnosis Comments LIPID PROFILE Routine 04/11/2010 9:56 AM A R COLLECTIONS REP HTN (hypertension) ENDOSCOPY, COLON, SCREENING Routine 08/09/2009 from Last 3 Months or Most Recently Relevant to Health Maintenance Results * (ABNORMAL) LIPID PROFILE (04/11/2010 9:56 AM A R COLLECTIONS REP) Cholesterol 184 100 - 199 mg/dL [facility] ACCOUNT BILL Triglycerides 81 0 - 149 mg/dL [facility] ACCOUNT BILL HDL Cholesterol 46 >39 mg/dL [facility] ACCOUNT BILL Comment: According to ATP-III Guidelines, HDL-C >59 mg/dL is considered a negative risk factor for CHD. VLDL Calculated 16 5 - 40 mg/dL [facility] ACCOUNT BILL LDL Calculated 122(H) 0 - 99 mg/dL [facility] ACCOUNT BILL BLOOD SPECIMEN / Unknown 04/11/2010 9:56 AM A R COLLECTIONS REP 04/11/2010 5:57 PM A R COLLECTIONS REP Narrative Resulting Agency Comment [facility] [address] [id number] Diego Fernandez DO LAB - CHEMISTRY OR DERABLES [facility] ACCOUNT BILL * ENDOSCOPY, COLON, SCREENING (08/09/2009) Diego Fernandez DO GI PROCEDURE ORDER NELLIE from Last 3 Months or Most Recently Relevant to Health Maintenance
== END 2024-05-20 14:42 | disposition home or self-care (01) ==
PROVIDERS: PCP Family Medicine; Visit Provider Physician Assistant
DX: Z12.2 Encounter for screening for malignant neoplasm of respiratory organs (principal); Z87.891 Personal history of nicotine dependence
CPT/HCPCS: 71271